=== PATIENT | male | born 1955 | race Caucasian/White ===

== ENCOUNTER 2020-10-02 06:18 | Outpatient (REF) | payer MEDICARE, SELFPAY ==
[2020-10-02 12:03] LABS: Alanine Aminotransferase 17 U/L (0-40); Albumin Level 4.3 g/dL (3.5-5.0); Alkaline Phosphatase 55 U/L (39-117); Anion Gap 14 (12-20); Aspartate Amino Transferase 15 U/L (5-37); Bilirubin Total 0.7 mg/dL (0.0-1.0); Blood Urea Nitrogen 19 mg/dL (9-16); Calcium 9.5 mg/dL (8.4-10.2); Carbon Dioxide 29 mmol/L (22-29); Chloride 103 mmol/L (96-108); Cholesterol 222 mg/dL; Estimated Glomerular Filt Rate > 60; Glucose Fasting 105 mg/dL (60-99); HDL Cholesterol 50 mg/dL; LDL Cholesterol Calculated 141 mg/dl; Potassium 4.9 mmol/l (3.3-5.1); Sodium 141 mmol/L (135-145); Total Protein 7.2 g/dL (6.5-8.0); Triglycerides 159 mg/dL
[2020-10-02 12:11] LABS: Prostate Specific Antigen Scr 1.11 ng/mL (<0.05-4.0); TSH reflex Free T4 4.38 mIU/mL (0.32-4.0)
[2020-10-02 12:46] LABS: Free T4 (Free Thyroxine) 1.07 ng/dL (0.71-1.85)
== END 2020-10-02 06:19 | disposition home or self-care (01) ==
LOC: HO.HMGCLDS 06:18
PROVIDERS: PCP Nurse Practitioner Family; Visit Provider Nurse Practitioner Family
DX: I10 Essential (primary) hypertension (principal); Z12.5 Encounter for screening for malignant neoplasm of prostate; R79.89 Other specified abnormal findings of blood chemistry
CPT/HCPCS: 80053; 80061; 84153; 84439; 84443

== ENCOUNTER 2023-03-21 07:52 | Outpatient (REF) | payer MEDICARE, SELFPAY ==
[2023-03-21 11:25] LABS: MANUAL DIFF FLAG NO
[2023-03-21 11:38] LABS: Appearance Urine Turbid; Color Urine Yellow; Glucose Urine UA Negative (Negative); Leukocyte Esterase Urine Negative (Negative); Nitrite Urine Negative (Negative); Urine Blood Negative (Negative); Urine Ketones Negative (Negative); Urine Protein Negative (Neg-Trace)
[2023-03-21 11:57] LABS: Basophils Absolute Auto 0.1 X10*3/uL (0.0-0.2); Basophils Percent Auto 0.8 % (0-2); Eosinophils Absolute Auto 0.2 X10*3/uL (0.0-0.4); Eosinophils Percent Auto 3.2 % (0-4); Hematocrit 41.6 % (42.0-52.0); Hemoglobin 13.9 g/dl (14.0-18.0); Imm Gran Abs Auto 0.03 X10*3/uL (0.00-0.03); Imm Gran Pct Auto 0.5 % (0.0-0.4); Lymphocytes Absolute Auto 1.9 X10*3/uL (1.2-4.9); Lymphocytes Percent Auto 30.7 % (20-40); Mean Corpuscular HGB Conc 33.4 g/dl (31.0-36.0); Mean Corpuscular Hemoglobin 33.7 pg (27.0-33.0); Mean Platelet Volume 9.2 fL (9.4-12.4); Monocytes Absolute Auto 0.7 X10*3/uL (0.1-1.2); Monocytes Percent Auto 11.7 % (2-11); Neutrophils Absolute Auto 3.4 x10*3/uL (2.0-8.3); Neutrophils Percent Auto 53.1 % (45-73); Platelet Count 282 X10*3/uL (160-400); Red Blood Count 4.12 X10*6/uL (4.60-5.80); Red Cell Distribution Width 12.6 % (11.0-16.0); White Blood Count 6.3 X10*3/uL (4.8-10.8)
[2023-03-21 12:30] LABS: Alanine Aminotransferase 14 U/L (0-40); Albumin Level 4.1 g/dL (3.5-5.0); Alkaline Phosphatase 57 U/L (39-117); Anion Gap 10 (12-20); Aspartate Amino Transferase 15 U/L (5-37); Bilirubin Total 0.7 mg/dL (0.0-1.0); Blood Urea Nitrogen 22 mg/dL (9-16); Calcium 9.4 mg/dL (8.4-10.2); Carbon Dioxide 29 mmol/L (22-29); Chloride 105 mmol/L (96-108); Cholesterol 206 mg/dL; Estimated Glomerular Filt Rate > 60; Glucose Fasting 104 mg/dL (60-99); HDL Cholesterol 54 mg/dL; LDL Cholesterol Calculated 127 mg/dl; Potassium 5.1 mmol/L (3.3-5.1); Prostate Specific Antigen Scr 1.35 ng/mL (<0.05-4.0); Sodium 139 mmol/L (135-145); TSH reflex Free T4 7.47 uIU/mL (0.32-4.0); Total Protein 6.7 g/dL (6.5-8.0); Triglycerides 127 mg/dL
[2023-03-21 13:20] LABS: Free T4 (Free Thyroxine) 0.96 ng/dL (0.71-1.85)
== END 2023-03-21 07:53 | disposition home or self-care (01) ==
LOC: HO.HMGCLDS 07:52
PROVIDERS: PCP Nurse Practitioner Family; Visit Provider Nurse Practitioner Family
DX: Z12.5 Encounter for screening for malignant neoplasm of prostate (principal); I10 Essential (primary) hypertension
CPT/HCPCS: 36415; 80053; 80061; 81003; 84153; 84439; 84443; 85025

== ENCOUNTER 2023-06-19 08:15 | Outpatient (REF) | payer MEDICARE, SELFPAY ==
[2023-06-19 11:08] LABS: MANUAL DIFF FLAG NO
[2023-06-19 11:36] LABS: Basophils Absolute Auto 0.1 X10*3/uL (0.0-0.2); Basophils Percent Auto 0.7 % (0-2); Eosinophils Absolute Auto 0.2 X10*3/uL (0.0-0.4); Eosinophils Percent Auto 2.2 % (0-4); Hematocrit 43.2 % (42.0-52.0); Hemoglobin 14.6 g/dl (14.0-18.0); Imm Gran Abs Auto 0.02 X10*3/uL (0.00-0.03); Imm Gran Pct Auto 0.3 % (0.0-0.4); Lymphocytes Percent Auto 29.2 % (20-40); Mean Corpuscular HGB Conc 33.8 g/dl (31.0-36.0); Mean Corpuscular Volume 100.5 fL (80.0-98.0); Mean Platelet Volume 9.3 fL (9.4-12.4); Monocytes Absolute Auto 0.8 X10*3/uL (0.1-1.2); Monocytes Percent Auto 11.2 % (2-11); Neutrophils Absolute Auto 3.8 x10*3/uL (2.0-8.3); Neutrophils Percent Auto 56.4 % (45-73); Platelet Count 287 X10*3/uL (160-400); White Blood Count 6.7 X10*3/uL (4.8-10.8)
[2023-06-19 12:08] LABS: Iron 117 mcg/dL (45-160); Percent Iron Saturation 35 % (15-50); Total Iron Binding Capacity 333 mcg/dL (228-428); Unsaturated Iron Binding 216 ug/dL
[2023-06-19 12:09] LABS: Ferritin 141 ng/mL (20-250); TSH reflex Free T4 12.12 uIU/mL (0.32-4.0)
[2023-06-19 12:21] LABS: Folate 12.8 ng/mL (> or = 4.0); Vitamin B12 332 pg/mL (200-900)
[2023-06-19 12:53] LABS: Free T4 (Free Thyroxine) 0.81 ng/dL (0.71-1.85)
== END 2023-06-19 08:16 | disposition home or self-care (01) ==
LOC: HO.HMGCLDS 08:15
PROVIDERS: PCP Nurse Practitioner Family; Visit Provider Nurse Practitioner Family
DX: D64.9 Anemia, unspecified (principal); R79.89 Other specified abnormal findings of blood chemistry
CPT/HCPCS: 36415; 82607; 82728; 82746; 83540; 84439; 84443; 85025

== ENCOUNTER 2023-06-26 14:56 | Outpatient (AMB) | payer MEDICARE, SELFPAY ==
--- NOTE | 2023-06-26 15:04 | MHC.PC.OV ---
Vital Signs 06/26/23 15:06 Height 6 ft Weight 236 lb BMI 32.0 BP 130/84 Blood Pressure Location Lt brachial Position Sitting Pulse 59 Pulse Source Pulse Oximeter Pulse Oximetry (%) 98 Oxygen Delivery Method Room Air Intake Visit Reasons: Annual PE/3 Month med review Allergies No Known Allergies Allergy (Verified 06/26/23 15:09) Medication List - Last Reconciled 06/26/23 by JANELLE Ashley aspirin (Adult Low Dose Aspirin) 81 mg PO DAILY flu vac qv 2019(18yr up)rc(PF) mL IM levothyroxine 150 mcg PO DAILY 30 days lisinopril 40 mg PO DAILY magnesium oxide 400 mg PO DAILY metoprolol tartrate 12.5 mg (1/2 x 25 mg) PO BID 90 days Tobacco use date assessed: 06/26/23 Fall risk assessment: No Falls in past year Last assessed Fall Risk: 06/26/23 Dental Screening Dental Screen Date: 06/26/23 Did you have a dental visit in the last 12 months?: Yes Did you have a dental problem in the last 6 months where you did not have access to dental care?: No Was dental information given to patient?: Patient has dentist HPI Annual PE/3 Month med review HPI Details Pt is here for a PE. Will order labs. Colon screen is up to date. PSA is up to date. tsh elevated, on 137mcg, taking daily, will increase to 150mcg, repeat tsh in 2 months. HTN: Blood pressure is stable, managed with lisinopril 40mg and metoprolol 12.5mg. Denies chest pain, shortness of breath, headache, dizziness, and blurred vision. Dyslipidemia: Will order labs. [facility] Medical History Arthritis of left knee Dyslipidemia First degree AV block HTN (hypertension) Hypothyroid Vitamin B deficiency Surgical History No pertinent past surgical history Family History Father AAA (abdominal aortic aneurysm) Mother Arthritis Social History Housing: Condominium Patient Tobacco Use Status: Former Tobacco user Years Smoked: 15 years ago e-Cigarette/Vaping Use: Never Used Second Hand Smoke Exposure: No service: No Current occupational status: retired Cognitive needs: No Hearing needs: No Vision needs: No Questionnaire Thrive Questionnaire Date Thrive assessed: 10/11/21 MARIFER-7 AMB Questionnaire MARIFER-7 Date MARIFER - 7 assessed: 03/13/22 Source: Developed by Drs. Lake Childress, Carole Andre, Clinton Galvan and colleagues, with an educational vee from [employer]. Review of Systems Const Denies chills and Denies fever(s) Eyes Denies blurry vision ENT Denies vertigo, Denies dizziness and Denies sore throat Card Denies chest pain at rest, Denies chest pain with activity, Denies diaphoresis, Denies dyspnea and Denies dyspnea on exertion Resp Denies cough, Denies dyspnea, Denies dyspnea on exertion and Denies wheezing GI Denies abdominal pain, Denies melena, Denies hematochezia, Denies constipation, Denies diarrhea and Denies loose stools Denies hematuria Musc Denies numbness and Denies tingling Skin/Breast Denies lesions Neuro Denies vertigo, Denies dizziness, Denies numbness and Denies tingling Psych Denies anxiety, Denies depression, Denies homicidal ideation, Denies suicidal ideation and Denies other (substance abuse) Aller/Immun Denies wheezing Physical exam (Primary Care) Vital Signs: Last Vital Signs Pulse 59 06/26/23 15:06 BP 130/84 06/26/23 15:06 Pulse Ox 98 06/26/23 15:06 Oxygen Delivery Method Room Air 06/26/23 15:06 BMI result Body Mass Index 32.0 Tobacco/Smoking Status: Tobacco use Status Tobacco use date assessed 06/26/23 06/26/23 15:12 Patient Tobacco Use Status Former Tobacco user 06/26/23 15:04 e-Cigarette/Vaping Use Never Used 06/26/23 15:04 Thrive Assessment: Date of Thrive Assessment Date Thrive assessed 10/11/21 06/26/23 15:04 Const General: cooperative Nutritional Appearance: well nourished Orientation/consciousness: patient oriented x3 HENMT Head: Yes normal to inspection, Yes normocephalic and Yes atraumatic Ears: TM's normal bilaterally Eyes General: appearance normal, both eyes and all related structures Alignment and Position: alignment normal and position normal Neck Neck: Yes normal visual inspection and Yes no lymphadenopathy Thyroid: Thyroid normal Resp Effort & Inspection: normal respiratory effort Auscultation: clear to auscultation bilaterally Cardio Rate: regular rate Rhythm: regular rhythm Heart sounds: S1 normal heart sound present, S2 normal heart sound present and no murmurs GI Palpation (GI): Soft to palpation and nontender Auscultation: normal bowel sounds Other: refused TJ Male General Exam: Yes normal external exam Penis: normal penis Scrotum: scrotum normal, testes descended bilaterally and no inguinal hernias Testes: no testicular mass Skin Rashes: no rashes Neuro General: patient oriented x3, moves all extremities, no focal motor deficits and deep tendon reflexes 2+ bilaterally Romberg Test: Negative Extrem Right lower extremity: edema (trace) Left lower extremity: edema (trace) Psych Appearance: grossly normal Mental Status: mental status grossly normal Speech and movement: Normal speech and movement present Affect: normal affect Attitude: cooperative Thought process: Normal thought process present Thought content: Normal thought content present Insight: Good insight present (Psych) Judgement: Good judgement present (Psych) Assessment and Plan Assessment & Plan (1) Elevated TSH: Code(s): R79.89 - Other specified abnormal findings of blood chemistry Plan: Repeat labs ordered, levothyroxine increased to 150mcg (2) HTN (hypertension): Code(s): I10 - Essential (primary) hypertension Plan: Labs ordered (3) Dyslipidemia: Code(s): E78.5 - Hyperlipidemia, unspecified Plan: Labs ordered Plan The patient agreed to the use of a medical administrator for this encounter. Scribed for JANELLE Miles by Malinda Avendaño medical administrator, on 06/26/2023 at 15:15 EST. Orders: Orders Comprehensive Met. Panel Today R79.89 - Other specified abnormal findings of blood chemistry TSH reflex Free T4 2 Months R79.89 - Other specified abnormal findings of blood chemistry Lipid Panel 2 Months E78.5 - Hyperlipidemia, unspecified, I10 - Essential (primary) hypertension, R79.89 - Other specified abnormal findings of blood chemistry Complete Blood Count Auto Diff 2 Months E78.5 - Hyperlipidemia, unspecified, I10 - Essential (primary) hypertension, R79.89 - Other specified abnormal findings of blood chemistry UA CC w/rflx Micro + Cult 2 Months E78.5 - Hyperlipidemia, unspecified, I10 - Essential (primary) hypertension, R79.89 - Other specified abnormal findings of blood chemistry Comprehensive Pablo. Panel Fast 2 Months E78.5 - Hyperlipidemia, unspecified, I10 - Essential (primary) hypertension, R79.89 - Other specified abnormal findings of blood chemistry Medications: Changed From levothyroxine 137 mcg PO DAILY 30 days 30 tabs 2RF To levothyroxine 150 mcg PO DAILY 30 tabs 2RF 30 days Refilled lisinopril 40 mg PO DAILY 90 tabs 1RF I10 - Essential (primary) hypertension metoprolol tartrate 12.5 mg (1/2 x 25 mg) PO BID 90 tabs 1RF 90 days Coding Level of Care Code Est Pt Prev Care >65y(15951) Diagnoses Elevated TSH R79.89 HTN (hypertension) I10 Dyslipidemia E78.5
[2023-06-26 15:06] VITALS: BP 130/84; PULSE 59; O2SAT 98; BMI 32.0
== END 2023-06-26 16:17 | disposition home or self-care (01) ==
PROVIDERS: Visit Provider Nurse Practitioner Family
DX: Z00.00 Encounter for general adult medical examination without abnormal findings (principal); I10 Essential (primary) hypertension; R79.89 Other specified abnormal findings of blood chemistry; E78.5 Hyperlipidemia, unspecified
CPT/HCPCS: 99397

== ENCOUNTER 2023-10-09 07:00 | Outpatient (REF) | payer MEDICARE, SELFPAY ==
[2023-10-09 11:20] LABS: MANUAL DIFF FLAG NO
[2023-10-09 11:30] LABS: Appearance Urine Clear; Color Urine Yellow; Glucose Urine UA Negative (Negative); Leukocyte Esterase Urine Negative (Negative); Nitrite Urine Negative (Negative); Specific Gravity - Urine 1.025 (1.005-1.025); UMIC TRIGGER UACC YES; Urine Blood Trace (Negative); Urine Ketones Negative (Negative); Urine Protein Negative (Neg-Trace)
[2023-10-09 11:34] LABS: Bacteria Urine None Seen (None Seen); Hyaline Casts Urine 0-2 /LPF (0-2); Squamous Epithelial Cell Urine 0-2 /HPF (0-2); WBC Urine 0-5 /HPF (0-5)
[2023-10-09 11:42] LABS: Basophils Absolute Auto 0.1 X10*3/uL (0.0-0.2); Eosinophils Absolute Auto 0.2 X10*3/uL (0.0-0.4); Eosinophils Percent Auto 3.3 % (0-4); Hematocrit 42.9 % (42.0-52.0); Hemoglobin 14.5 g/dl (14.0-18.0); Imm Gran Abs Auto 0.02 X10*3/uL (0.00-0.03); Imm Gran Pct Auto 0.3 % (0.0-0.4); Lymphocytes Absolute Auto 1.5 X10*3/uL (1.2-4.9); Lymphocytes Percent Auto 24.2 % (20-40); Mean Corpuscular HGB Conc 33.8 g/dl (31.0-36.0); Mean Corpuscular Hemoglobin 33.8 pg (27.0-33.0); Mean Platelet Volume 9.4 fL (9.4-12.4); Monocytes Absolute Auto 0.6 X10*3/uL (0.1-1.2); Monocytes Percent Auto 10.2 % (2-11); Neutrophils Absolute Auto 3.8 x10*3/uL (2.0-8.3); Platelet Count 295 X10*3/uL (160-400); Red Blood Count 4.29 X10*6/uL (4.60-5.80); Red Cell Distribution Width 12.6 % (11.0-16.0); White Blood Count 6.3 X10*3/uL (4.8-10.8)
[2023-10-09 12:03] LABS: Alanine Aminotransferase 19 U/L (0-40); Albumin Level 4.3 g/dL (3.5-5.0); Alkaline Phosphatase 53 U/L (39-117); Anion Gap 13 (12-20); Aspartate Amino Transferase 19 U/L (5-37); Bilirubin Total 0.8 mg/dL (0.0-1.0); Blood Urea Nitrogen 22 mg/dL (9-16); Calcium 9.5 mg/dL (8.4-10.2); Carbon Dioxide 28 mmol/L (22-29); Chloride 103 mmol/L (96-108); Cholesterol 222 mg/dL (<200); Estimated Glomerular Filt Rate > 60; Glucose Fasting 110 mg/dL (60-99); Glucose Random 110 mg/dL (60-115); HDL Cholesterol 52 mg/dL (>40); LDL Cholesterol Calculated 123 mg/dL (<100); Potassium 4.6 mmol/L (3.3-5.1); Sodium 139 mmol/L (135-145); Total Protein 7.4 g/dL (6.5-8.0); Triglycerides 235 mg/dL (<150)
[2023-10-09 12:07] LABS: TSH reflex Free T4 5.87 uIU/mL (0.32-4.0)
[2023-10-09 12:50] LABS: Free T4 (Free Thyroxine) 1.05 ng/dL (0.71-1.85)
== END 2023-10-09 07:01 | disposition home or self-care (01) ==
LOC: HO.HMGCLDS 07:00
PROVIDERS: PCP Nurse Practitioner Family; Visit Provider Nurse Practitioner Family
DX: R79.89 Other specified abnormal findings of blood chemistry (principal); I10 Essential (primary) hypertension; E78.5 Hyperlipidemia, unspecified
CPT/HCPCS: 36415; 80053; 80061; 81001; 84439; 84443; 85025

== ENCOUNTER 2023-11-28 11:05 | Outpatient (REF) | payer MEDICARE, SELFPAY ==
[2023-11-28 16:41] LABS: Urine Cytology See Pathology rpt
== END 2023-11-28 11:06 | disposition home or self-care (01) ==
LOC: HO.LAB 11:05
PROVIDERS: PCP Nurse Practitioner Family; Visit Provider Urology
DX: R31.29 Other microscopic hematuria (principal); Z87.891 Personal history of nicotine dependence
CPT/HCPCS: 81003; 88112; 99202

== ENCOUNTER 2023-11-28 11:05 | Outpatient (AMB) | payer MEDICARE, SELFPAY ==
--- NOTE | 2023-11-28 11:14 | A.OFFVIS_ITS ---
Intake Intake Visit Reasons: Microscopic hematuria Intake Note: NEW Patient presents today to established treatment for Microscopic Hematuria: Meds- None Allergies to Antibiotic- No Known Allergies Blood Thinner- Aspirin Chip Crusher Operator Required: No Accompanied by: Self / Same As Patient Allergies No Known Allergies Allergy (Verified 01/15/24 08:56) HPI HPI Comments History of Present Illness Details Eliseo is a 68 y/o male who is here for evaluation for hematuria. I have discussed reasons for blood in the urine may include but are not limited to kidney stones, cancer in the urinary tract, kidney stone disease or inflammatory conditions of the urinary tract BPH. I have discussed workup to include evaluation of the upper tracts and consideration for cystoscopy evaluation. UA- leukocytes negative, microscopic blood present Plan: Urine cytology, CT urogram office cystoscopy This note is constructed in part using voice recognition software. While every effort has been made to ensure accuracy electrophonic engineer errors may have been included. [facility] Medical History Arthritis of left knee HTN (hypertension) First degree AV block Vitamin B deficiency Dyslipidemia Hypothyroid Surgical History No pertinent past surgical history Family History Father AAA (abdominal aortic aneurysm) Mother Arthritis Social History Housing: Condominium Patient Tobacco Use Status: Former Tobacco user Years Smoked: 15 years ago e-Cigarette/Vaping Use: Never Used Second Hand Smoke Exposure: No service: No Current occupational status: retired Cognitive needs: No Hearing needs: No Vision needs: No Review of Systems Const All systems reviewed & are unremarkable except as noted in HPI and below Reports no additional complaints Eyes Reports no additional complaints ENT Reports no additional complaints Card Denies dyspnea Resp Denies cough and Denies dyspnea GI Reports no additional complaints Musc Reports no additional complaints Skin/Breast Denies rash and Denies unusual bruising Neuro Reports no additional complaints Psych Reports no additional complaints Endo Reports no additional complaints [place]/Lymph Reports no additional complaints Aller/Immun Reports no additional complaints Physical Exam Const General: healthy appearing, no acute distress and well developed Orientation/consciousness: patient oriented x3 HEENT Head: Yes normocephalic and Yes atraumatic Eyes Conjunctivae: conjunctivae normal Neck Neck: Yes normal visual inspection Chest Chest palpation & inspection: normal inspection of the chest Resp Effort & Inspection: normal respiratory effort Cardio Rate: regular rate GI Inspection: Yes normal to inspection Palpation (GI): Soft to palpation Other: Prostate Exam: Penis: normal penis Scrotum: scrotum normal Skin General skin exam: no rashes or lesions noted Neuro General: patient oriented x3 Extrem General: No pedal edema Psych Appearance: grossly normal Affect: normal affect Results AMB Urinalysis, Automated UA Leukoctes 0 Joyce/uL Last Edit by ABIMAEL Bryant on 11/28/23 11:33 UA Nitrite Negative Last Edit by ABIMAEL Bryant on 11/28/23 11:33 UA Urobilinogen 0.2 mg/dL Last Edit by ABIMAEL Bryant on 11/28/23 11:3 3 UA Protein 0 mg/dL Last Edit by ABIMAEL Bryant on 11/28/23 11:33 UA pH 5.5 Last Edit by ABIMAEL Bryant on 11/28/23 11:33 UA Blood 80 Randy/uL Last Edit by ABIMAEL Bryant on 11/28/23 11:33 2+ Jose Lowery 11/28/23 11:33 UA Specific Stark 1.030 Last Edit by ABIMAEL Bryant on 11/28/23 11: 33 UA Ketone Negative Last Edit by ABIMAEL Bryant on 11/28/23 11:33 UA Bilirubin 0 mg/dL Last Edit by ABIMAEL Bryant on 11/28/23 11:33 UA Glucose 0 mg/dL Last Edit by ABIMAEL Bryant on 11/28/23 11:33 Results Reviewed Results Reviewed: Laboratory Last Values Urine pH (Auto) 5.5 11/28/23 11:26 Specific Stark (Auto) 1.030 11/28/23 11:26 Urine Protein (Auto) 0 mg/dL 11/28/23 11:26 Glucose (UA)(Auto) 0 mg/dL 11/28/23 11:26 Urine Ketones (Auto) Negative 11/28/23 11:26 Urine Blood (Auto) 80 Randy/uL 11/28/23 11:26 Urine Nitrite (Auto) Negative 11/28/23 11:26 Urine Bilirubin (Auto) 0 mg/dL 11/28/23 11:26 Urine Urobilinogen (Auto) 0.2 mg/dL 11/28/23 11:26 Leukocyte Esterase (Auto) 0 Joyce/uL 11/28/23 11:26 Assessment & Plan Assessment & Plan (1) Hematuria: Code(s): R31.9 - Hematuria, unspecified (2) History of nicotine dependence: Code(s): Z87.891 - Personal history of nicotine dependence Plan Urine cytology. CT urogram. Follow-up office cystoscopy Orders: Orders AMB Urinalysis Automated 11/28/23 Z13.9 - Encounter for screening, unspecified Urine Cytology 11/28/23 R31.29 - Other microscopic hematuria CT abdomen pelvis wo IV con 11/28/23 R31.9 - Hematuria, unspecified, Z87.891 - Personal history of nicotine dependence Coding Level of Care Code New Pt Level 4 (59377) Diagnoses Hematuria R31.9 History of nicotine dependence Z87.891
== END 2023-11-28 11:45 | disposition home or self-care (01) ==
PROVIDERS: PCP Nurse Practitioner Family; Visit Provider Urology
DX: R31.9 Hematuria, unspecified (principal); Z87.891 Personal history of nicotine dependence
CPT/HCPCS: 99204

== ENCOUNTER 2023-12-23 06:20 | Outpatient (REF) | payer MEDICARE, SELFPAY ==
[2023-12-23 11:18] LABS: MANUAL DIFF FLAG NO
[2023-12-23 11:35] LABS: Appearance Urine Turbid; Color Urine Yellow; Glucose Urine UA Negative (Negative); Leukocyte Esterase Urine Negative (Negative); Nitrite Urine Negative (Negative); Specific Gravity - Urine 1.025 (1.005-1.025); UMIC TRIGGER UACC YES; Urine Blood Small (1+) (Negative); Urine Ketones Negative (Negative); Urine Protein Negative (Neg-Trace)
[2023-12-23 11:41] LABS: Basophils Absolute Auto 0.1 X10*3/uL (0.0-0.2); Basophils Percent Auto 0.9 % (0-2); Eosinophils Absolute Auto 0.2 X10*3/uL (0.0-0.4); Eosinophils Percent Auto 2.7 % (0-4); Hemoglobin 14.8 g/dl (14.0-18.0); Imm Gran Abs Auto 0.02 X10*3/uL (0.00-0.03); Imm Gran Pct Auto 0.3 % (0.0-0.4); Lymphocytes Absolute Auto 1.8 X10*3/uL (1.2-4.9); Lymphocytes Percent Auto 25.7 % (20-40); Mean Corpuscular HGB Conc 33.6 g/dl (31.0-36.0); Mean Corpuscular Hemoglobin 33.6 pg (27.0-33.0); Mean Corpuscular Volume 99.8 fL (80.0-98.0); Mean Platelet Volume 9.4 fL (9.4-12.4); Monocytes Absolute Auto 0.7 X10*3/uL (0.1-1.2); Monocytes Percent Auto 10.2 % (2-11); Neutrophils Absolute Auto 4.2 x10*3/uL (2.0-8.3); Neutrophils Percent Auto 60.2 % (45-73); Platelet Count 278 X10*3/uL (160-400); Red Blood Count 4.41 X10*6/uL (4.60-5.80); Red Cell Distribution Width 12.1 % (11.0-16.0)
[2023-12-23 11:59] LABS: Alanine Aminotransferase 24 U/L (0-40); Albumin Level 4.3 g/dL (3.5-5.0); Alkaline Phosphatase 62 U/L (39-117); Anion Gap 15 (12-20); Aspartate Amino Transferase 20 U/L (5-37); Bilirubin Total 0.7 mg/dL (0.0-1.0); Blood Urea Nitrogen 15 mg/dL (9-16); Calcium 9.7 mg/dL (8.4-10.2); Carbon Dioxide 27 mmol/L (22-29); Chloride 104 mmol/L (96-108); Cholesterol 140 mg/dL (<200); Estimated Glomerular Filt Rate > 60; Glucose Fasting 106 mg/dL (60-99); HDL Cholesterol 54 mg/dL (>40); Iron 117 mcg/dL (45-160); LDL Cholesterol Calculated 47 mg/dL (<100); Percent Iron Saturation 37 % (15-50); Potassium 4.6 mmol/L (3.3-5.1); Sodium 141 mmol/L (135-145); Total Iron Binding Capacity 319 mcg/dL (228-428); Total Protein 7.3 g/dL (6.5-8.0); Triglycerides 195 mg/dL (<150); Unsaturated Iron Binding 202 ug/dL
[2023-12-23 12:06] LABS: Ferritin 170 ng/mL (20-250); TSH reflex Free T4 4.19 uIU/mL (0.32-4.0)
[2023-12-23 12:16] LABS: Folate 12.1 ng/mL (> or = 4.0); Vitamin B12 376 pg/mL (200-900)
[2023-12-23 12:34] LABS: Bacteria Urine None Seen (None Seen); Hyaline Casts Urine 0-2 /LPF (0-2); RBC Urine 0-2 /HPF (0-2); Squamous Epithelial Cell Urine 0-2 /HPF (0-2); WBC Urine 0-5 /HPF (0-5)
[2023-12-23 13:04] LABS: Free T4 (Free Thyroxine) 1.12 ng/dL (0.71-1.85)
== END 2023-12-23 06:21 | disposition home or self-care (01) ==
LOC: HO.HMGCLDS 06:20
PROVIDERS: PCP Nurse Practitioner Family; Visit Provider Nurse Practitioner Family
DX: D64.9 Anemia, unspecified (principal); R79.89 Other specified abnormal findings of blood chemistry; E78.5 Hyperlipidemia, unspecified
CPT/HCPCS: 36415; 80053; 80061; 81001; 82607; 82728; 82746; 83540; 84439; 84443; 85025

== ENCOUNTER 2024-01-05 07:45 | Outpatient (AMB) | payer MEDICARE, SELFPAY ==
[2024-01-05 07:56] VITALS: BP 130/76; PULSE 60; TEMP 36.4; O2SAT 99; BMI 31.3
--- NOTE | 2024-01-05 07:56 | A.OFFPC_ITS ---
Vital Signs 01/05/24 07:56 Height 6 ft Weight 231 lb BMI 31.3 BP 130/76 Blood Pressure Location Lt brachial Position Sitting Pulse 60 Pulse Source Pulse Oximeter Temp 97.6 F Temp Source Temporal Artery Scan Pulse Oximetry (%) 99 Oxygen Delivery Method Room Air Intake Visit Reasons: 6 month fu Intake Note: pt is here today for 6 month FU Allergies No Known Allergies Allergy (Verified 01/05/24 09:48) Medication List - Last Reconciled 01/05/24 by JANELLE Ashley aspirin (Adult Low Dose Aspirin) 81 mg PO DAILY atorvastatin 20 mg PO BEDTIME flu vac qv 2019(18yr up)rc(PF) mL IM levothyroxine 175 mcg PO DAILY 90 days lisinopril 40 mg PO DAILY magnesium oxide 400 mg PO DAILY metoprolol tartrate 12.5 mg (1/2 x 25 mg) PO BID 90 days Tobacco use date assessed: 01/05/24 Fall risk assessment: No Falls in past year Dental Screening Dental Screen Date: 01/05/24 Did you have a dental visit in the last 12 months?: No Did you have a dental problem in the last 6 months where you did not have access to dental care?: Yes Was dental information given to patient?: Patient has dentist HPI 6 month fu HPI Details HTN: Blood pressure is stable, managed with lisinopril 40mg and metoprolol 12.5mg bid. Denies chest pain, shortness of breath, headache, dizziness, and blurred vision. pt reports cutting out fried foods, dairy, reports 'feeling better , it shows with his choles numbers as well. [facility] Medical History Arthritis of left knee HTN (hypertension) First degree AV block Vitamin B deficiency Dyslipidemia Hypothyroid Surgical History No pertinent past surgical history Family History Father AAA (abdominal aortic aneurysm) Mother Arthritis [facility] Patient Tobacco Use Status: Former Tobacco user Years Smoked: 15 years ago e-Cigarette/Vaping Use: Never Used Second Hand Smoke Exposure: No service: No Current occupational status: retired Cognitive needs: No Hearing needs: No Vision needs: No Questionnaire PHQ-9 Over the last 2 weeks, how often have you been bothered by any of the following problems? 1. Little interest or pleasure in doing things: not at all 2. Feeling down, depressed, or hopeless: not at all 3. Trouble falling or staying asleep, or sleeping too much: not at all 4. Feeling tired or having little energy: not at all 5. Poor appetite or overeating: not at all 6. Feeling bad about yourself - or that you are a failure or have let yourself or your family down: not at all 7. Trouble concentrating on things, such as reading the newspaper or watching television: not at all 8. Moving or speaking so slowly that other people could have noticed. Or the opposite - being so fidgety or restless that you have been moving around a lot more than usual: not at all 9. Thoughts that you would be better off or of hurting yourself in some way: not at all Total score: 0 Depression Screening Interpretation: Negative Depression Screening Done: Yes Source: Developed by Drs. Lake Childress, Carole Andre, Clinton Galvan and colleagues, with an educational vee from [employer]. Thrive Questionnaire Date Thrive assessed: 01/05/24 I am a: Patient What is your living situation today?: I have a steady place to live Within the past 12 months, did the food you bought not last and you didn't have the money to get more?: Never true Within the past 12 months, did you worry whether your food would run out before you got money to buy more?: Never true Do you have trouble paying for medicines?: No Do you have trouble getting transportation to medical appointments?: No Do you have trouble paying your heating and electricity bill?: No Do you have trouble taking care of your child, family member or friend?: No Do you have trouble with day-to-day activities such as bathing, preparing meals, shopping, managing finances, etc.?: No Are you currently unemployed and looking for a job?: No Are you interested in more education?: No Please select the resources that you would like help with: None THRIVE Score: 0 MARIFER-7 AMB Questionnaire MARIFER-7 Date MARIFER - 7 assessed: 01/05/24 Feeling nervous, anxious, or on edge: 2 = More than half the days Not being able to stop or control worryin = Several days Worrying too much about different things: 1 = Several days Trouble relaxin = Several days Being so restless that it is hard to sit still: 1 = Several days Becoming easily annoyed or irritable: 1 = Several days Feeling afraid as if something awful might happen: 0 = Not at all Total MARIFER-7 score (0-4 normal; 5-9 mild; 10-14 moderate; 15-21 severe): 7 Source: Developed by Drs. Lake Childress, Carole Andre, Clinton Galvan and colleagues, with an educational vee from [employer]. Review of Systems Const Reports as per HPI Physical exam (Primary Care) Vital Signs: Last Vital Signs Temp 97.6 F 01/05/24 07:56 Pulse 60 01/05/24 07:56 BP 130/76 01/05/24 07:56 Pulse Ox 99 01/05/24 07:56 Oxygen Delivery Method Room Air 01/05/24 07:56 BMI result Body Mass Index 31.3 Tobacco/Smoking Status: Tobacco use Status Tobacco use date assessed 01/05/24 01/05/24 08:27 Patient Tobacco Use Status Former Tobacco user 01/05/24 07:57 e-Cigarette/Vaping Use Never Used 01/05/24 07:57 PHQ-9: PHQ-9 Score PHQ-9: Total score 0 01/05/24 08:51 Depression Screening Interpretation: Negative Thrive Assessment: Date of Thrive Assessment Date Thrive assessed 01/05/24 01/05/24 07:57 Const General: cooperative Nutritional Appearance: obese Orientation/consciousness: patient oriented x3 Resp Effort & Inspection: normal respiratory effort Auscultation: clear to auscultation bilaterally Cardio Rate: regular rate Rhythm: regular rhythm Heart sounds: S1 normal heart sound present and S2 normal heart sound present Neuro General: patient oriented x3 Extrem Right lower extremity: no edema Left lower extremity: no edema Psych Appearance: grossly normal Mental Status: mental status grossly normal Speech and movement: Normal speech and movement present Affect: normal affect Attitude: cooperative Thought process: Normal thought process present Thought content: Normal thought content present Insight: Good insight present (Psych) Judgement: Good judgement present (Psych) Assessment and Plan Assessment & Plan (1) HTN (hypertension): Code(s): I10 - Essential (primary) hypertension Plan: stable taking meds (2) Screening PSA (prostate specific antigen): Code(s): Z12.5 - Encounter for screening for malignant neoplasm of prostate Plan The patient agreed to the use of a medical coding manager for this encounter. Scribed for BING Miles-PHILLY by Malinda Avendaño medical coding manager, on 01/05/2024 at 08:30 EST. Orders: Orders Complete Blood Count Auto Diff Today I10 - Essential (primary) hypertension TSH reflex Free T4 Today I10 - Essential (primary) hypertension Lipid Panel Today I10 - Essential (primary) hypertension Comprehensive [place]. Panel Fast Today I10 - Essential (primary) hypertension Prostate Specific Antigen Scr Today Z12.5 - Encounter for screening for malignant neoplasm of prostate Coding Level of Care Code Est Pt Level 3 (66003) Diagnoses HTN (hypertension) I10 Screening PSA (prostate specific antigen) Z12.5
== END 2024-01-05 09:45 | disposition home or self-care (01) ==
PROVIDERS: PCP Nurse Practitioner Family; Visit Provider Nurse Practitioner Family
DX: I10 Essential (primary) hypertension (principal); Z12.5 Encounter for screening for malignant neoplasm of prostate
CPT/HCPCS: 99213

== ENCOUNTER 2024-01-09 07:49 | Outpatient (REF) | payer MEDICARE, SELFPAY ==
--- NOTE | ~2024-01-09 | CT_ITS ---
EXAMINATION: CT ABDOMEN AND PELVIS WITHOUT CONTRAST CLINICAL INFORMATION: Hematuria. COMPARISON: Abdominal aortic ultrasound 09/06/2015. TECHNIQUE: Multidetector volumetric imaging was performed from the superior aspect of the liver through the pubic symphysis. Sagittal and coronal reformatted images were obtained on the technologist's workstation. This CT examination was performed using dose optimization techniques as appropriate, variously including the following: *Automated exposure control *Adjustment of mA and/or kV according to patient size (this includes techniques or standardized protocols for targeted exams where dose is matched to indication/reason for exam; i.e. extremities or head) *Use of iterative reconstruction technique DLP: 632 mGy-cm FINDINGS: LUNG BASES: The visualized lung bases are unremarkable. LIVER, GALLBLADDER, AND BILIARY TREE: The liver is normal in size, shape, and attenuation. No focal hepatic lesion or biliary ductal dilatation is present. The gallbladder is unremarkable with no evidence of radiopaque gallstones, gallbladder wall thickening, or obvious pericholecystic inflammatory changes. PANCREAS: Unremarkable. SPLEEN: Unremarkable. ADRENAL GLANDS: Unremarkable. KIDNEYS AND URETERS: The kidneys are normal in size, shape, and attenuation. No hydronephrosis, hydroureter, or calculi seen. No perinephric stranding. BLADDER: Partially distended but unremarkable. GASTROINTESTINAL TRACT: The small and large bowel are unremarkable aside from colonic diverticulosis without diverticulitis. The appendix is unremarkable. ABDOMINAL WALL: Small bilateral inguinal hernias containing only fat. LYMPH NODES: No retroperitoneal lymphadenopathy. VASCULAR: Calcific atherosclerotic changes are present in the aorta and iliofemoral vessels. Mild focal dilatation of the infrarenal aorta at 2.4 cm but there is no evidence of an abdominal aortic aneurysm. PELVIC VISCERA: The prostate and seminal vesicles are unremarkable. OSSEOUS STRUCTURES: Marked degenerative changes are seen at L4-L5 and L5-S1. No bony destructive lesions. CT/CT abdomen pelvis wo IV con IMPRESSION: 1. A cause for the patient's hematuria has not been found. 2. Incidental note made of colonic diverticulosis without diverticulitis, small bilateral inguinal hernias containing only fat and degenerative changes in the spine. Fleischner guidelines were followed.
== END 2024-01-09 07:50 | disposition home or self-care (01) ==
LOC: HO.CT 07:49
PROVIDERS: PCP Nurse Practitioner Family; Visit Provider Urology
DX: R31.9 Hematuria, unspecified (principal); Z87.891 Personal history of nicotine dependence
CPT/HCPCS: 74176

== ENCOUNTER 2024-01-15 08:34 | Outpatient (AMB) | payer MEDICARE, SELFPAY ==
--- NOTE | 2024-01-15 08:55 | A.OFFVIS_ITS ---
Intake Intake Visit Reasons: 6w/CT (booked on 01/08) Intake Note: Patient presents today for Microscopic Hematuria, CT Scan Results: Meds- None Allergies to Antibiotic- No Known Allergies Blood Thinner- Aspirin Phlebotomy Director Required: No Accompanied by: Self / Same As Patient Allergies No Known Allergies Allergy (Verified 01/15/24 08:56) Medication List - Last Reconciled 01/15/24 by Micaela Paul MD aspirin (Adult Low Dose Aspirin) 81 mg PO DAILY atorvastatin 20 mg PO BEDTIME flu vac qv 2019(18yr up)rc(PF) mL IM levothyroxine 175 mcg PO DAILY 90 days lisinopril 40 mg PO DAILY magnesium oxide 400 mg PO DAILY metoprolol tartrate 12.5 mg (1/2 x 25 mg) PO BID 90 days HPI HPI Comments History of Present Illness Details Eliseo is here for office cystoscopy he is being evaluated due to microscopic hematuria. History of nicotine dependence. Urine cytology - negative for malignant cells CT urogram reviewed----urinary tract within normal limits; kidneys negative for masses or renal calculi, incidentally vascular abnormalities noted: Calcific atherosclerotic changes are present in the aorta and iliofemoral vessels. Mild focal dilatation of the infrarenal aorta at 2.4 cm but there is no evidence of an abdominal aortic aneurysm. diverticulosis noted and discussed and patient states has 10 year colonoscopy to be done next year. Cystoscopy findings: Mild to moderate bladder wall thickening, bilobar prostate enlargement, no suspicious bladder lesions. 30 minutes spent in review of records pe rtaining to this visit and including [id number] discussion with the patient and documentation of this visit, will refer to vascular for further evaluation of aortic dilation and calcifications noted Plan tamsulosin 0.4 mg daily, referral to vascular, follow-up in 3 months [facility] Medical History Arthritis of left knee HTN (hypertension) First degree AV block Vitamin B deficiency Dyslipidemia Hypothyroid Surgical History No pertinent past surgical history Family History Father AAA (abdominal aortic aneurysm) Mother Arthritis Social History [facility]: [facility] Patient Tobacco Use Status: Former Tobacco user Years Smoked: 15 years ago e-Cigarette/Vaping Use: Never Used Second Hand Smoke Exposure: No service: No Current occupational status: retired Cognitive needs: No Hearing needs: No Vision needs: No Review of Systems Const All systems reviewed & are unremarkable except as noted in HPI and below Reports no additional complaints Eyes Reports no additional complaints ENT Reports no additional complaints Card Denies dyspnea Resp Denies cough and Denies dyspnea GI Reports no additional complaints Musc Reports no additional complaints Skin/Breast Denies rash and Denies unusual bruising Neuro Reports no additional complaints Psych Reports no additional complaints Endo Reports no additional complaints Jay Jay/Lymph Reports no additional complaints Aller/Immun Reports no additional complaints Office Procedures Cystoscopy Consent Discussed risk and benefit or proposed procedure with the patient. Information consent for procedure given to the patient. Discussed technical aspects, risks, benefits and alternatives in full. Addressed all of the patient's questions and concerns regarding the procedure. The patient demonstrated knowledge and understanding. They wish to proceed with this procedure. Preparation The patient was prepped in the usual manner. A ethylene plant operator was present and in the room. Genitalia was prepped with betadine solution in a sterile manner. Lidocaine Jelly 2% was placed into the urethra and 16Fr flexible Olympus cystoscope was inserted into the meatus after adequate lubrication. Procedure Time out per protocol performed. Bladder Inspection Bladder Inspection: The bladder was inspected in its entirety with utilization retroflexion displaying: Tumor(s): No abnormal lesions visualized Trabeculation: [id number] Mucosal Erthema: Not applicable Orifices: normal shape and position Urethra: normal Cystoscopy findings: prostatic urethra-- bilobar enlargement, bulbous urethra WNL, no suspicious bladder lesions visualized [id number] DISPOSABLE SCOPE URO-G FLEXIBLE SCOPE Procedure code (CPT) selection complete Office Meds lidocaine HCl 2 % mucosal jelly in applicator Performing Provider: Micaela Paul MD Performing Location: [facility] [place], [place] [facility] Documented (not given) by: Micaela Paul MD on 01/15/24 10:24 Dose Route Admin Location Dispensed Lot Number Expiration Date ND Verification Manager 10 mL intra-urethral mL naproxen 500 mg tablet Performing Provider: Micaela Paul MD Performing Location: [facility] [place] [place] [facility] Documented (not given) by: Micaela Paul MD on 01/15/24 10:24 Dose Route Admin Location Dispensed Lot Number Expiration Date NDC Verification Manager 500 mg PO tab ciprofloxacin HCl 500 mg tablet Performing Provider: Micaela Paul MD Performing Location: [facility] [place] [place] [facility] Documented (not given) by: Micaela Paul MD on 01/15/24 10:24 Dose Route Admin Location Dispensed Lot Number Expiration Date NDC Verification Manager 500 mg PO tab Results AMB Urinalysis, Automated UA Leukoctes 0 Joyce/uL Last Edit by ABIMAEL Bryant on 01/15/24 09:30 UA Nitrite Negative Last Edit by ABIMAEL Bryant on 01/15/24 09:30 UA Urobilinogen 0.2 mg/dL Last Edit by ABIMAEL Bryant on 01/15/24 09:3 0 UA Protein 15 mg/dL Last Edit by ABIMAEL Bryant on 01/15/24 09:30 UA pH 6.0 Last Edit by ABIMAEL Bryant on 01/15/24 09:30 UA Blood 25 Randy/uL Last Edit by ABIMAEL Bryant on 01/15/24 09:30 1+ Jose Lowery 01/15/24 09:30 UA Specific [place] 1.015 Last Edit by ABIMAEL Bryant on 01/15/24 09: 30 UA Ketone Negative Last Edit by ABIMAEL Bryant on 01/15/24 09:30 UA Bilirubin 0 mg/dL Last Edit by ABIMAEL Bryant on 01/15/24 09:30 UA Glucose 0 mg/dL Last Edit by ABIMAEL Bryant on 01/15/24 09:30 Results Reviewed Results Reviewed: Laboratory Last Values Urine pH (Auto) 6.0 01/15/24 09:28 Specific [place] (Auto) 1.015 01/15/24 09:28 Urine Protein (Auto) 15 mg/dL 01/15/24 09:28 Glucose (UA)(Auto) 0 mg/dL 01/15/24 09:28 Urine Ketones (Auto) Negative 01/15/24 09:28 Urine Blood (Auto) 25 Randy/uL 01/15/24 09:28 Urine Nitrite (Auto) Negative 01/15/24 09:28 Urine Bilirubin (Auto) 0 mg/dL 01/15/24 09:28 Urine Urobilinogen (Auto) 0.2 mg/dL 01/15/24 09:28 Leukocyte Esterase (Auto) 0 Joyce/uL 01/15/24 09:28 Date of Service: 01/09/24 EXAMINATION: CT ABDOMEN AND PELVIS WITHOUT CONTRAST CLINICAL INFORMATION: Hematuria. COMPARISON: Abdominal aortic ultrasound 09/06/2015. TECHNIQUE: Multidetector volumetric imaging was performed from the superior aspect of the liver through the pubic symphysis. Sagittal and coronal reformatted images were obtained on the technologist's workstation. This CT examination was performed using dose optimization techniques as appropriate, variously including the following: *Automated exposure control *Adjustment of mA and/or kV according to patient size (this includes techniques or standardized protocols for targeted exams where dose is matched to indication/reason for exam; i.e. extremities or head) *Use of iterative reconstruction technique DLP: 632 mGy-cm FINDINGS: LUNG BASES: The visualized lung bases are unremarkable. LIVER, GALLBLADDER, AND BILIARY TREE: The liver is normal in size, shape, and attenuation. No focal hepatic lesion or biliary ductal dilatation is present. The gallbladder is unremarkable with no evidence of radiopaque gallstones, gallbladder wall thickening, or obvious pericholecystic inflammatory changes. PANCREAS: Unremarkable. SPLEEN: Unremarkable. ADRENAL GLANDS: Unremarkable. KIDNEYS AND URETERS: The kidneys are normal in size, shape, and attenuation. No hydronephrosis, hydroureter, or calculi seen. No perinephric stranding. BLADDER: Partially distended but unremarkable. GASTROINTESTINAL TRACT: The small and large bowel are unremarkable aside from colonic diverticulosis without diverticulitis. The appendix is unremarkable. ABDOMINAL WALL: Small bilateral inguinal hernias containing only fat. LYMPH NODES: No retroperitoneal lymphadenopathy. VASCULAR: Calcific atherosclerotic changes are present in the aorta and iliofemoral vessels. Mild focal dilatation of the infrarenal aorta at 2.4 cm but there is no evidence of an abdominal aortic aneurysm. PELVIC VISCERA: The prostate and seminal vesicles are unremarkable. OSSEOUS STRUCTURES: Marked degenerative changes are seen at L4-L5 and L5-S1. No bony destructive lesions. IMPRESSION: 1. A cause for the patient's hematuria has not been found. 2. Incidental note made of colonic diverticulosis without diverticulitis, small bilateral inguinal hernias containing only fat and degenerative changes in the spine. Assessment & Plan Assessment & Plan (1) Hematuria: Code(s): R31.9 - Hematuria, unspecified (2) History of nicotine dependence: Code(s): Z87.891 - Personal history of nicotine dependence (3) Aorta disorder: Code(s): I77.9 - Disorder of arteries and arterioles, unspecified (4) Microscopic hematuria: Code(s): R31.29 - Other microscopic hematuria Plan Plan tamsulosin 0.4 mg daily, referral to vascular, follow-up in 3 months Orders: Orders AMB Urinalysis Automated Today Z13.9 - Encounter for screening, unspecified AMB Cystoscopy Today R31.29 - Other microscopic hematuria, R31.9 - Hematuria, unspecified Referrals Vascular Surgery Referral I77.9 - Disorder of arteries and arterioles, unspecified Medications: New lidocaine HCl 2% 10 mL intra-urethral ONCE 20 mL 0RF R31.29 - Other microscopic hematuria, R31.9 - Hematuria, unspecified naproxen 500 mg PO ONCE 1 tab 0RF R31.29 - Other microscopic hematuria, R31.9 - Hematuria, unspecified ciprofloxacin HCl 500 mg PO ONCE 1 tab 0RF R31.29 - Other microscopic hematuria, R31.9 - Hematuria, unspecified tamsulosin (Flomax) 0.4 mg PO BEDTIME 30 caps 3RF Patient Instructions: The patient had an opportunity to ask questions regarding treatment plan. All questions were answered. Imaging, Laboratory studies and physical exam results were discussed and reviewed in detail. No major barriers to understanding were identified. The patient expressed understanding and agreement with the above treatment plan. The patient is aware they should contact our office by phone for worsening of their current condition or the appearance of new symptoms. Compliance is encouraged with any medications and followup testing that is ordered. It is a privilege to be allowed the opportunity to participate in the urologic care of your patient. If you have any questions or concerns regarding treatment for the above conditions please do not hesitate to contact me. The office te rigo contact is [phone]. This note is constructed in part using voice recognition software. While every effort has been made to ensure accuracy bill of lading clerk errors may have been included. Yours sincerely, Micaela Paul MD Coding Level of Care Code Est Pt Level 4 (23394) Diagnoses Hematuria R31.9 History of nicotine dependence Z87.891 Aorta disorder I77.9 Microscopic hematuria R31.29 CPT Codes Cystoscopy - CPT: 53892-Jynsmofgdi ([id number])
== END 2024-01-15 10:30 | disposition home or self-care (01) ==
PROVIDERS: PCP Nurse Practitioner Family; Visit Provider Urology
DX: R31.29 Other microscopic hematuria (principal); I77.9 Disorder of arteries and arterioles, unspecified; Z87.891 Personal history of nicotine dependence
CPT/HCPCS: 52000; 99213

== ENCOUNTER → 2024-01-15 08:34 | Outpatient (BNVA) | payer MEDICARE, SELFPAY | PROVIDERS: PCP Nurse Practitioner Family; Visit Provider Urology | DX: R31.29 Other microscopic hematuria (principal); I77.9 Disorder of arteries and arterioles, unspecified; Z87.891 Personal history of nicotine dependence | CPT/HCPCS: 52000; 81003; 99212 ==

== ENCOUNTER 2024-04-21 13:15 | Outpatient (AMB) | payer MEDICARE, SELFPAY ==
--- NOTE | 2024-04-21 13:26 | A.OFFVIS_ITS ---
Intake Visit Reasons: 3m follow up Intake Note: Patient presents today for a follow-up: Meds- Tamsulosin Allergies to Antibiotic- No Known Allergies Blood Thinner- Aspirin PVR, 153 mL Recreational Facilities Motel Manager Required: No Accompanied by: Self / Same As Patient Allergies No Known Allergies Allergy (Verified 01/15/24 08:56) Medication List - Last Reconciled 04/21/24 by Micaela Paul MD aspirin (Adult Low Dose Aspirin) 81 mg PO DAILY atorvastatin 20 mg PO BEDTIME levothyroxine 175 mcg PO DAILY 90 days lisinopril 40 mg PO DAILY magnesium oxide 400 mg PO DAILY metoprolol tartrate 12.5 mg (1/2 x 25 mg) PO BID 90 days tamsulosin (Flomax) 0.4 mg PO BEDTIME HPI Comments Details: 04/21/24--Eliseo is a 69-year-old male who has been evaluated due to microscopic hematuria and BPH. He is prescribed tamsulosin 0.4 mg daily. He states that he gets at about once at about 03:00am to urinate otherwise feels that he has a good flow. I will continue tamsulosin 0.4 mg daily. Urinalysis blood trace. Bladder scan PVR 153 mL. The patient was referred to [facility] vascular specialty and we received correspondence from the office that the aneurysm was small. The patient has a family history of aneurysms. A consult was sent for a referral to [facility] vascular the patient states he has not heard from them as yet. PSA 03/21/2023 1.35 ng. PSA screening. The patient has pending blood work ordered by his PCP. Review of chart: 01/15/24--Eliseo is here for office cystoscopy he is being evaluated due to microscopic hematuria. History of nicotine dependence. Urine cytology - negative for malignant cells CT urogram reviewed----urinary tract within normal limits; kidneys negative for masses or renal calculi, incidentally vascular abnormalities noted: Calcific atherosclerotic changes are present in the aorta and iliofemoral vessels. Mild focal dilatation of the infrarenal aorta at 2.4 cm but there is no evidence of an abdominal aortic aneurysm. diverticulosis noted and discussed and patient states has 10 year colonoscopy to be done next year. Cystoscopy findings: Mild to moderate bladder wall thickening, bilobar prostate enlargement, no suspicious bladder lesions. Will refer to vascular for further evaluation of aortic dilation and calcifications noted. Plan tamsulosin 0.4 mg daily, referral to vascular, follow-up in 3 months [facility] Medical History Arthritis of left knee HTN (hypertension) First degree AV block Vitamin B deficiency Dyslipidemia Hypothyroid Surgical History No pertinent past surgical history Family History Father AAA (abdominal aortic aneurysm) Mother Arthritis Social History Housing: [facility] Patient Tobacco Use Status: Former Tobacco user Years Smoked: 15 years ago e-Cigarette/Vaping Use: Never Used Second Hand Smoke Exposure: No service: No Current occupational status: retired Cognitive needs: No Hearing needs: No Vision needs: No Review of Systems Const All systems reviewed & are unremarkable except as noted in HPI and below Reports no additional complaints Eyes Reports no additional complaints ENT Reports no additional complaints Card Reports no additional complaints Resp Reports no additional complaints GI Reports no additional complaints Reports as per HPI Musc Reports no additional complaints Skin/Breast Reports system reviewed and no additional complaints, except as documented Neuro Reports no additional complaints Psych Reports no additional complaints Endo Reports no additional complaints Jay Jay/Lymph Reports no additional complaints Aller/Immun Reports no additional complaints Office Procedures Post Void Residual Post Residual Void Post Void Residual (PVR): 153 [id number] Void Residual by ultrasound Results AMB Urinalysis, Automated UA Leukoctes 0 Joyce/uL Last Edit by ABIMAEL Bryant on 04/21/24 13:48 UA Nitrite Negative Last Edit by ABIMAEL Bryant on 04/21/24 13:48 UA Urobilinogen 0.2 mg/dL Last Edit by ABIMAEL Bryant on 04/21/24 13:4 8 UA Protein 0 mg/dL Last Edit by Jose Lowery, A on 04/21/24 13:48 UA pH 6.5 Last Edit by Jose Sebastián, RMA on 04/21/24 13:48 UA Blood 10 Randy/uL Last Edit by Jose Lowery, A on 04/21/24 13:48 UA Specific [place] 1.005 Last Edit by Jose Lowery, A on 04/21/24 13: 48 UA Ketone Negative Last Edit by Jose Lowery, A on 04/21/24 13:48 UA Bilirubin 0 mg/dL Last Edit by oJse Lowery A on 04/21/24 13:48 UA Glucose 0 mg/dL Last Edit by Jose Lowery, A on 04/21/24 13:48 Results Reviewed Results Reviewed: Laboratory Last Values Urine pH (Auto) 6.5 04/21/24 13:36 Specific [place] (Auto) 1.005 04/21/24 13:36 Urine Protein (Auto) 0 mg/dL 04/21/24 13:36 Glucose (UA)(Auto) 0 mg/dL 04/21/24 13:36 Urine Ketones (Auto) Negative 04/21/24 13:36 Urine Blood (Auto) 10 Randy/uL 04/21/24 13:36 Urine Nitrite (Auto) Negative 04/21/24 13:36 Urine Bilirubin (Auto) 0 mg/dL 04/21/24 13:36 Urine Urobilinogen (Auto) 0.2 mg/dL 04/21/24 13:36 Leukocyte Esterase (Auto) 0 Joyce/uL 04/21/24 13:36 Date of Service: 01/09/24 EXAMINATION: CT ABDOMEN AND PELVIS WITHOUT CONTRAST CLINICAL INFORMATION: Hematuria. COMPARISON: Abdominal aortic ultrasound 09/06/2015. TECHNIQUE: Multidetector volumetric imaging was performed from the superior aspect of the liver through the pubic symphysis. Sagittal and coronal reformatted images were obtained on the technologist's workstation. This CT examination was performed using dose optimization techniques as appropriate, variously including the following: *Automated exposure control *Adjustment of mA and/or kV according to patient size (this includes techniques or standardized protocols for targeted exams where dose is matched to indication/reason for exam; i.e. extremities or head) *Use of iterative reconstruction technique DLP: 632 mGy-cm FINDINGS: LUNG BASES: The visualized lung bases are unremarkable. LIVER, GALLBLADDER, AND BILIARY TREE: The liver is normal in size, shape, and attenuation. No focal hepatic lesion or biliary ductal dilatation is present. The gallbladder is unremarkable with no evidence of radiopaque gallstones, gallbladder wall thickening, or obvious pericholecystic inflammatory changes. PANCREAS: Unremarkable. SPLEEN: Unremarkable. ADRENAL GLANDS: Unremarkable. KIDNEYS AND URETERS: The kidneys are normal in size, shape, and attenuation. No hydronephrosis, hydroureter, or calculi seen. No perinephric stranding. BLADDER: Partially distended but unremarkable. GASTROINTESTINAL TRACT: The small and large bowel are unremarkable aside from colonic diverticulosis without diverticulitis. The appendix is unremarkable. ABDOMINAL WALL: Small bilateral inguinal hernias containing only fat. LYMPH NODES: No retroperitoneal lymphadenopathy. VASCULAR: Calcific atherosclerotic changes are present in the aorta and iliofemoral vessels. Mild focal dilatation of the infrarenal aorta at 2.4 cm but there is no evidence of an abdominal aortic aneurysm. PELVIC VISCERA: The prostate and seminal vesicles are unremarkable. OSSEOUS STRUCTURES: Marked degenerative changes are seen at L4-L5 and L5-S1. No bony destructive lesions. IMPRESSION: 1. A cause for the patient's hematuria has not been found. 2. Incidental note made of colonic diverticulosis without diverticulitis, small bilateral inguinal hernias containing only fat and degenerative changes in the spine. Assessment & Plan Assessment & Plan (1) Hematuria: Code(s): R31.9 - Hematuria, unspecified Category: Medical (2) History of nicotine dependence: Code(s): Z87.891 - Personal history of nicotine dependence Category: Medical (3) Aorta disorder: Code(s): I77.9 - Disorder of arteries and arterioles, unspecified Category: Medical (4) Microscopic hematuria: Code(s): R31.29 - Other microscopic hematuria Category: Medical (5) BPH loc w urin obs/LUTS: Code(s): N40.1 - Benign prostatic hyperplasia with lower urinary tract symptoms Category: Medical Plan: Continue tamsulosin. The patient was referred to [facility] vascular specialty and we received correspondence from the office that the aneurysm was small. The patient has a family history of aneurysms. A consult was sent for a referral to [facility] vascular the patient states he has not heard from them as yet. PSA screening. The patient has pending blood work ordered by his PCP. Plan The patient had an opportunity to ask questions regarding treatment plan. The patient expressed understanding and agreement with the above treatment plan. The patient is aware they should contact our office by phone for worsening of their current condition or the appearance of new symptoms. Compliance is encouraged with any medications and followup testing that is ordered. It is a privilege to be allowed the opportunity to participate in the urologic care of your patient. If you have any questions or concerns regarding treatment for the above conditions please do not hesitate to contact me. The office telephone contact is [phone]. This note is constructed in part using voice recognition software. While every effort has been made to ensure accuracy digital music instructor errors may have been included. Yours sincerely, Micaela Paul MD Orders: Orders AMB Post Void Residual by ultrasound Today N39.8 - Other specified disorders of urinary system AMB Urinalysis Automated Today Z13.9 - Encounter for screening, unspecified Medications: Refilled tamsulosin (Flomax) 0.4 mg PO BEDTIME 90 caps 3RF Coding Level of Care Code Est Pt Level 4 (44034) Diagnoses Hematuria R31.9 History of nicotine dependence Z87.891 Aorta disorder I77.9 Microscopic hematuria R31.29 BPH loc w urin obs/LUTS N40.1 CPT Codes Post Residual Void - PVR CPT Code: 83439-Mxiv Void Residual by ultrasound ([id number])
== END 2024-04-21 14:17 | disposition home or self-care (01) ==
PROVIDERS: PCP Nurse Practitioner Family; Visit Provider Urology
DX: R31.9 Hematuria, unspecified (principal); Z87.891 Personal history of nicotine dependence; I77.9 Disorder of arteries and arterioles, unspecified; R31.29 Other microscopic hematuria; N40.1 Benign prostatic hyperplasia with lower urinary tract symptoms; Z13.9 Encounter for screening, unspecified
CPT/HCPCS: 99214

== ENCOUNTER → 2024-04-21 13:15 | Outpatient (BNVA) | payer MEDICARE, SELFPAY | PROVIDERS: PCP Nurse Practitioner Family; Visit Provider Urology | DX: R31.9 Hematuria, unspecified (principal); I77.9 Disorder of arteries and arterioles, unspecified; N40.1 Benign prostatic hyperplasia with lower urinary tract symptoms; R31.29 Other microscopic hematuria; Z87.891 Personal history of nicotine dependence | CPT/HCPCS: 51798; 81003; 99212 ==

== ENCOUNTER 2024-06-28 06:01 | Outpatient (REF) | payer MEDICARE, SELFPAY ==
[2024-06-28 10:11] LABS: MANUAL DIFF FLAG NO
[2024-06-28 10:18] LABS: Basophils Percent Auto 0.5 % (0-2); Eosinophils Absolute Auto 0.2 X10*3/uL (0.0-0.4); Hematocrit 43.6 % (42.0-52.0); Hemoglobin 14.8 g/dl (14.0-18.0); Imm Gran Abs Auto 0.03 X10*3/uL (0.00-0.03); Imm Gran Pct Auto 0.4 % (0.0-0.4); Lymphocytes Absolute Auto 2.2 X10*3/uL (1.2-4.9); Mean Corpuscular HGB Conc 33.9 g/dl (31.0-36.0); Mean Corpuscular Hemoglobin 33.5 pg (27.0-33.0); Mean Corpuscular Volume 98.6 fL (80.0-98.0); Mean Platelet Volume 9.5 fL (9.4-12.4); Monocytes Absolute Auto 0.9 X10*3/uL (0.1-1.2); Monocytes Percent Auto 10.8 % (2-11); Neutrophils Absolute Auto 4.6 x10*3/uL (2.0-8.3); Neutrophils Percent Auto 57.3 % (45-73); Platelet Count 314 X10*3/uL (160-400); Red Blood Count 4.42 X10*6/uL (4.60-5.80); Red Cell Distribution Width 12.5 % (11.0-16.0)
[2024-06-28 11:27] LABS: Prostate Specific Antigen Scr 1.66 ng/mL (<0.05-4.0)
[2024-06-28 11:28] LABS: Alanine Aminotransferase 28 U/L (0-40); Albumin Level 4.1 g/dL (3.5-5.0); Alkaline Phosphatase 65 U/L (39-117); Anion Gap 16 (12-20); Aspartate Amino Transferase 18 U/L (5-37); Bilirubin Total 0.7 mg/dL (0.0-1.0); Blood Urea Nitrogen 22 mg/dL (9-16); Calcium 9.7 mg/dL (8.4-10.2); Carbon Dioxide 25 mmol/L (22-29); Chloride 105 mmol/L (96-108); Cholesterol 147 mg/dL (<200); Estimated Glomerular Filt Rate 57; Glucose Fasting 125 mg/dL (60-99); HDL Cholesterol 55 mg/dL (>40); LDL Cholesterol Calculated 63 mg/dL (<100); Potassium 4.5 mmol/L (3.3-5.1); Sodium 141 mmol/L (135-145); TSH reflex Free T4 4.33 uIU/mL (0.32-4.0); Total Protein 7.2 g/dL (6.5-8.0); Triglycerides 147 mg/dL (<150)
[2024-06-28 12:26] LABS: Free T4 (Free Thyroxine) 1.14 ng/dL (0.71-1.85)
== END 2024-06-28 06:02 | disposition home or self-care (01) ==
LOC: HO.HMGCLDS 06:01
PROVIDERS: PCP Nurse Practitioner Family; Visit Provider Nurse Practitioner Family
DX: I10 Essential (primary) hypertension (principal); Z12.5 Encounter for screening for malignant neoplasm of prostate
CPT/HCPCS: 36415; 80053; 80061; 84153; 84439; 84443; 85025

== ENCOUNTER 2024-07-06 07:31 | Outpatient (AMB) | payer MEDICARE, SELFPAY ==
--- NOTE | 2024-07-06 07:38 | A.OFFPC_ITS ---
Vital Signs 07/06/24 07:41 Height 6 ft Weight 230 lb BMI 31.2 BP 132/70 Blood Pressure Location Rt brachial Position Sitting Pulse 61 Pulse Source Pulse Oximeter Pulse Oximetry (%) 95 Oxygen Delivery Method Room Air Intake Visit Reasons: PE Intake Note: Pt is here today for his PE Allergies No Known Allergies Allergy (Verified 07/06/24 07:40) Medication List - Last Reconciled 07/06/24 by JANELLE Ashley aspirin (Adult Low Dose Aspirin) 81 mg PO DAILY atorvastatin 20 mg PO BEDTIME levothyroxine 175 mcg PO DAILY 90 days lisinopril 40 mg PO DAILY magnesium oxide 400 mg PO DAILY metoprolol tartrate 12.5 mg (1/2 x 25 mg) PO BID 90 days tamsulosin (Flomax) 0.4 mg PO BEDTIME Tobacco use date assessed: 07/06/24 Fall risk assessment: No Falls in past year Last assessed Fall Risk: 07/06/24 Dental Screening Dental Screen Date: 07/06/24 Did you have a dental visit in the last 12 months?: No Did you have a dental problem in the last 6 months where you did not have access to dental care?: No Was dental information given to patient?: Patient has dentist HPI PE HPI Details Pt is here for a PE. Labs were already performed. Colon screen is up to date. PSA is up to date, follows up with urology. Denies dribbling with urination, weak stream, and frequent nocturia. Pt's fasting blood sugar was elevated. Educated pt on proper diet and limiting bad carbs. Will repeat labs in 2 months. Pt's TSH was elevated. He is taking levothyroxine 175mcg daily. Will repeat labs in 2 months. Pt c/o bilat knee pain. He reports that this is worse when he first stands up or with walking. Will order XRs. Pt has a macular lesion to his left mandaen. Pt is fair skinned. Will refer to derm. [facility] Medical History Arthritis of left knee HTN (hypertension) First degree AV block Vitamin B deficiency Dyslipidemia Hypothyroid Surgical History No pertinent past surgical history Family History Father AAA (abdominal aortic aneurysm) Mother Arthritis Social History Housing: Condominium Patient Tobacco Use Status: Former Tobacco user Years Smoked: 15 years ago e-Cigarette/Vaping Use: Never Used Second Hand Smoke Exposure: No service: No Current occupational status: retired Cognitive needs: No Hearing needs: No Vision needs: No Questionnaire Thrive Questionnaire Date Thrive assessed: 01/05/24 MARIFER-7 AMB Questionnaire MARIFER-7 Date MARIFER - 7 assessed: 01/05/24 Source: Developed by Drs. Lake Childress, Carole Andre, Clinton Galvan and colleagues, with an educational vee from [employer]. Review of Systems Const Denies chills and Denies fever(s) Eyes Denies blurry vision ENT Denies vertigo, Denies dizziness and Denies sore throat Card Denies chest pain at rest, Denies chest pain with activity, Denies diaphoresis, Denies dyspnea and Denies dyspnea on exertion Resp Denies cough, Denies dyspnea, Denies dyspnea on exertion and Denies wheezing GI Denies abdominal pain, Denies melena, Denies hematochezia, Denies constipation, Denies diarrhea and Denies loose stools Denies hematuria Musc Denies numbness and Denies tingling Skin/Breast Denies lesions Neuro Denies vertigo, Denies dizziness, Denies numbness and Denies tingling Psych Denies anxiety, Denies depression, Denies homicidal ideation, Denies suicidal ideation and Denies other (substance abuse) Aller/Immun Denies wheezing Physical exam (Primary Care) Vital Signs: Last Vital Signs Pulse 61 07/06/24 07:41 BP 132/70 07/06/24 07:41 Pulse Ox 95 07/06/24 07:41 Oxygen Delivery Method Room Air 07/06/24 07:41 BMI result Body Mass Index 31.2 Tobacco/Smoking Status: Tobacco use Status Tobacco use date assessed 07/06/24 07/06/24 07:40 Patient Tobacco Use Status Former Tobacco user 07/06/24 07:39 e-Cigarette/Vaping Use Never Used 07/06/24 07:39 Thrive Assessment: Date of Thrive Assessment Date Thrive assessed 01/05/24 07/06/24 07:39 Const General: cooperative Nutritional Appearance: well nourished Orientation/consciousness: patient oriented x3 HENMT Head: Yes normal to inspection, Yes normocephalic and Yes atraumatic Ears: TM's normal bilaterally Eyes General: appearance normal, both eyes and all related structures Alignment and Position: alignment normal and position normal Neck Neck: Yes normal visual inspection, Yes no lymphadenopathy and Yes supple Resp Effort & Inspection: normal respiratory effort Auscultation: clear to auscultation bilaterally Cardio Rate: regular rate Rhythm: regular rhythm Heart sounds: S1 normal heart sound present, S2 normal heart sound present and no murmurs GI Palpation (GI): Soft to palpation and nontender Auscultation: normal bowel sounds Other: TJ: prostate slightly enlarged, no nodules palpated Male General Exam: Yes normal external exam Penis: normal penis Scrotum: scrotum normal, testes descended bilaterally and no inguinal hernias Testes: no testicular mass Skin Other: left mandaen with macular darker crusty lesion Rashes: no rashes Neuro General: patient oriented x3, moves all extremities, no focal motor deficits and deep tendon reflexes 2+ bilaterally Romberg Test: Negative Extrem Other: bilat knees slightly puffy, slight crepitus, - lachmans, - mcmurrays Psych Appearance: grossly normal Mental Status: mental status grossly normal Speech and movement: Normal speech and movement present Affect: normal affect Attitude: cooperative Thought process: Normal thought process present Thought content: Normal thought content present Insight: Good insight present (Psych) Judgement: Good judgement present (Psych) Assessment and Plan Assessment & Plan (1) Elevated TSH: Code(s): R79.89 - Other specified abnormal findings of blood chemistry Plan: Labs ordered (2) Elevated fasting blood sugar: Code(s): R73.01 - Impaired fasting glucose Plan: Educated on proper diet and limiting bad carbs, labs ordered (3) Skin lesion: Code(s): L98.9 - Disorder of the skin and subcutaneous tissue, unspecified Plan: Referred to derm (4) Bilateral knee pain: Code(s): M25.561 - Pain in right knee; M25.562 - Pain in left knee Plan: XRs ordered Plan The patient agreed to the use of a medical corps officer for this encounter. Scribed for Josue Bragg, FREIGHT RATE ANALYST- by Malinda Avendaño, medical corps officer, on 07/06/2024 at 07:45 EST. Orders: Orders Comprehensive [place]. Panel Fast 2 Months R73.01 - Impaired fasting glucose, R79.89 - Other specified abnormal findings of blood chemistry TSH reflex Free T4 2 Months R73.01 - Impaired fasting glucose, R79.89 - Other specified abnormal findings of blood chemistry XR knee RT 3V Today M25.561 - Pain in right knee, M25.562 - Pain in left knee XR knee LT 3V Today M25.561 - Pain in right knee, M25.562 - Pain in left knee Hemoglobin A1c 2 Months R73.01 - Impaired fasting glucose, R79.89 - Other specified abnormal findings of blood chemistry Referrals Dermatology Referral L98.9 - Disorder of the skin and subcutaneous tissue, u nspecified Coding Level of Care Code Est Pt Prev Care >65y(94772) Diagnoses Elevated TSH R79.89 Elevated fasting blood sugar R73.01 Skin lesion L98.9 Bilateral knee pain M25.561; M25.562
[2024-07-06 07:41] VITALS: BP 132/70; PULSE 61; O2SAT 95; BMI 31.2
== END 2024-07-06 08:19 | disposition home or self-care (01) ==
PROVIDERS: PCP Nurse Practitioner Family; Visit Provider Nurse Practitioner Family
DX: Z00.00 Encounter for general adult medical examination without abnormal findings (principal); R79.89 Other specified abnormal findings of blood chemistry; R73.01 Impaired fasting glucose; M25.562 Pain in left knee; L98.9 Disorder of the skin and subcutaneous tissue, unspecified; M25.561 Pain in right knee
CPT/HCPCS: 99397

== ENCOUNTER 2024-07-07 13:04 | Outpatient (REF) | payer MEDICARE, SELFPAY ==
--- NOTE | ~2024-07-07 | XR_ITS ---
EXAMINATION: XR KNEE, RIGHT XR KNEE, LEFT CLINICAL INFORMATION: Right and left knee pain. COMPARISON: Bilateral knee radiographs dated 06/21/2019. TECHNIQUE: AP, lateral, and sunrise views of the right and left knee. FINDINGS: Right Knee: Moderate medial compartment joint space narrowing with tiny marginal osteophytes, unchanged. No acute fracture or dislocation. No concerning lytic or blastic osseous lesion. Trace joint effusion. No abnormal soft tissue calcification. Left Knee: Zhqybofo-wy-[id number] medial compartment joint space narrowing with tricompartmental marginal osteophytes, slightly progressed. No acute fracture or dislocation. No concerning lytic or blastic osseous lesion. Trace joint effusion. No abnormal soft tissue calcification. XR/XR knee LT 3V IMPRESSION: RIGHT KNEE: Moderate medial compartment osteoarthritis, unchanged. Trace joint effusion. LEFT KNEE: Tricompartmental osteoarthritis, most prominent within the medial compartment, slightly progressed when compared to the prior radiographs. Electronically signed by: Javi Ventura MD 07/21/2024 08:54 PM EDT
--- NOTE | ~2024-07-07 | XR_ITS ---
EXAMINATION: XR KNEE, RIGHT XR KNEE, LEFT CLINICAL INFORMATION: Right and left knee pain. COMPARISON: Bilateral knee radiographs dated 06/21/2019. TECHNIQUE: AP, lateral, and sunrise views of the right and left knee. FINDINGS: Right Knee: Moderate medial compartment joint space narrowing with tiny marginal osteophytes, unchanged. No acute fracture or dislocation. No concerning lytic or blastic osseous lesion. Trace joint effusion. No abnormal soft tissue calcification. Left Knee: [id number] medial compartment joint space narrowing with tricompartmental marginal osteophytes, slightly progressed. No acute fracture or dislocation. No concerning lytic or blastic osseous lesion. Trace joint effusion. No abnormal soft tissue calcification. XR/XR knee RT 3V IMPRESSION: RIGHT KNEE: Moderate medial compartment osteoarthritis, unchanged. Trace joint effusion. LEFT KNEE: Tricompartmental osteoarthritis, most prominent within the medial compartment, slightly progressed when compared to the prior radiographs. Electronically signed by: Javi Ventura MD 07/21/2024 08:54 PM EDT
== END 2024-07-07 13:05 | disposition home or self-care (01) ==
LOC: HO.HMGCX 13:04
PROVIDERS: PCP Nurse Practitioner Family; Visit Provider Nurse Practitioner Family
DX: M25.561 Pain in right knee (principal); M25.562 Pain in left knee
CPT/HCPCS: 73562

== ENCOUNTER 2024-08-10 07:40 | Outpatient (AMB) | payer MEDICARE, SELFPAY ==
--- NOTE | 2024-08-10 07:57 | MHC.OFFVIS ---
Intake Visit Reasons: Bilateral knee pains Intake Note: Eliseo is a 69 year old male who presents with complaints of progressively worsening bilateral knee pains. He describes his pains as sharp and severe in nature. His pains have gotten worse over the last few years in spite of continued non operative treatments. The patient states that he has had 2 cortisone injections in the past. The injections gave him relief for only a few days. He has not had a viscosupplementation injection. He has failed the last 3 months of conservative treatment which have included Voltaren topical gel, a home exercise program, Tylenol and anti-inflammatory medicines. He denies any locking or giving way. The patient states that his bilateral knee pains are now interfering with his activities of daily living and his ability to sleep well through the night. He wishes to hold off on total knee replacement surgery for as long as possible. Allergies No Known Allergies Allergy (Verified 08/10/24 08:00) Medication List - Last Reconciled 08/10/24 by Robbie Foy MD aspirin (Adult Low Dose Aspirin) 81 mg PO DAILY atorvastatin 20 mg PO BEDTIME levothyroxine 175 mcg PO DAILY 90 days lisinopril 40 mg PO DAILY magnesium oxide 400 mg PO DAILY metoprolol tartrate 12.5 mg (1/2 x 25 mg) PO BID 90 days tamsulosin (Flomax) 0.4 mg PO BEDTIME [facility] Medical History Arthritis of left knee HTN (hypertension) First degree AV block Vitamin B deficiency Dyslipidemia Hypothyroid Surgical History No pertinent past surgical history Family History Father AAA (abdominal aortic aneurysm) Mother Arthritis Social History Housing: Condominium Patient Tobacco Use Status: Former Tobacco user Years Smoked: 15 years ago e-Cigarette/Vaping Use: Never Used Second Hand Smoke Exposure: No service: No Current occupational status: retired Cognitive needs: No Hearing needs: No Vision needs: No Physical Exam Const Other: Well-nourished well-developed very friendly male awake alert and oriented x3 in no acute distress Extrem Other: Bilateral lower extremity examination shows good capillary refill, no skin lesions noted, normal sensation light touch Bilateral knee examination shows minimal effusions, palpable crepitus with range of motion, pain with range of motion, range of motion from -3 degrees to 115 degrees, no instability Results Reviewed Results Reviewed: X-rays of the patient's bilateral knee show joint space narrowing, subchondral sclerosis, no acute bony abnormalities Assessment & Plan Assessment & Plan (1) Osteoarthritis of left knee: Code(s): M17.12 - Unilateral primary osteoarthritis, left knee Category: Medical (2) Osteoarthritis of right knee: Code(s): M17.11 - Unilateral primary osteoarthritis, right knee Category: Medical Plan Mr. Waldron presents with bilateral knee pains due to osteoarthritis. I had a lengthy discussion with the patient regarding the treatment options. He wishes to hold off on total knee replacement surgery for as long as possible. I agree with this plan. Thus, I will see whether or not the patient's insurance company will cover a viscosupplementation injection, such as Durolane, for both of his knees. I will see him back once the injections are available. Feel free to call me at any time should questions regarding his orthopedic management arise. Thank you very much for asking me to see this very friendly gentleman. I spent 20 minutes in reviewing the patient's records and imaging studies, seeing the patient and documenting in the medical record. Coding Level of Care Code New Pt Level 3 (69491) Complex EM visit Add On G2211 Diagnoses Osteoarthritis of left knee M17.12 Osteoarthritis of right knee M17.11
== END 2024-08-10 08:20 | disposition home or self-care (01) ==
PROVIDERS: PCP Nurse Practitioner Family; Visit Provider Orthopaedic Surgery
DX: M17.0 Bilateral primary osteoarthritis of knee (principal)
CPT/HCPCS: 99203; G2211

== ENCOUNTER → 2024-08-10 07:40 | Outpatient (BNVA) | payer MEDICARE, SELFPAY | PROVIDERS: PCP Nurse Practitioner Family; Visit Provider Orthopaedic Surgery | DX: M17.0 Bilateral primary osteoarthritis of knee (principal) | CPT/HCPCS: 99202 ==

== ENCOUNTER 2024-08-25 07:46 | Outpatient (AMB) | payer MEDICARE, SELFPAY ==
[2024-08-25 07:50] VITALS: BMI 31.2
--- NOTE | 2024-08-25 07:50 | MHC.OFFVIS ---
Vital Signs 08/25/24 07:50 Height 6 ft Weight 230 lb BMI 31.2 Intake Visit Reasons: Bilateral knee pain Intake Note: Eliseo is a 69 year old male who presents with complaints of progressively worsening bilateral knee pains. He describes his pains as sharp in nature. He has had multiple cortisone injections in the past which gave him minimal relief. He has not had a viscosupplementation injection. He has done physical therapy exercises which aggravated his pain. He has also tried Tylenol and anti-inflammatory medicines which gave him minimal relief. He wishes to hold off on surgery for as long as possible. Allergies No Known Allergies Allergy (Verified 08/25/24 07:57) Medication List - Last Reconciled 08/25/24 by Robbie Foy MD aspirin (Adult Low Dose Aspirin) 81 mg PO DAILY atorvastatin 20 mg PO BEDTIME levothyroxine 175 mcg PO DAILY 90 days lisinopril 40 mg PO DAILY magnesium oxide 400 mg PO DAILY metoprolol tartrate 12.5 mg (1/2 x 25 mg) PO BID 90 days tamsulosin (Flomax) 0.4 mg PO BEDTIME [facility] Medical History Arthritis of left knee HTN (hypertension) First degree AV block Vitamin B deficiency Dyslipidemia Hypothyroid Surgical History No pertinent past surgical history Family History Father AAA (abdominal aortic aneurysm) Mother Arthritis Social History Housing: [facility] Patient Tobacco Use Status: Former Tobacco user Years Smoked: 15 years ago e-Cigarette/Vaping Use: Never Used Second Hand Smoke Exposure: No service: No Current occupational status: retired Cognitive needs: No Hearing needs: No Vision needs: No Physical Exam Vital Signs: BMI result Body Mass Index 31.2 Const Other: Well-nourished well-developed very friendly male awake alert and oriented x3 in no acute distress Extrem Other: Bilateral lower extremity examination shows good capillary refill, no skin lesions noted, normal sensation light touch Bilateral knee examination shows minimal effusions, palpable crepitus with range of motion, pain with range of motion, range of motion from -3 degrees to 115 degrees, no instability Office Procedures Joint Injection/Aspiration Joint Injection/Aspiration Primary Site: left knee Prep: site was prepped using aseptic technique Injected: 1% plain lidocaine and other (48 mg of Synvisc-One viscosupplementation) Procedure: The patient tolerated the procedure well Coding 19977 - Large joint Procedure code (CPT) selection complete Joint Injection/Aspiration Joint Injection/Aspiration Primary Site: right knee Prep: other (48 mg of Synvisc-One viscosupplementation) Injected: 1% plain lidocaine Procedure: The patient tolerated the procedure well Coding 73469 - Large joint Procedure code (CPT) selection complete Results Reviewed Results Reviewed: X-rays of the patient's bilateral knees taken previously show joint space narrowing, subchondral sclerosis, no acute bony abnormalities Assessment & Plan Assessment & Plan (1) Bilateral knee pain: Code(s): M25.561 - Pain in right knee; M25.562 - Pain in left knee Category: Medical (2) Osteoarthritis of left knee: Code(s): M17.12 - Unilateral primary osteoarthritis, left knee Category: Medical (3) Osteoarthritis of right knee: Code(s): M17.11 - Unilateral primary osteoarthritis, right knee Category: Medical Plan Mr. Waldron presents with bilateral knee pains due to osteoarthritis. I had a lengthy discussion with the patient regarding the treatment options. The risks and benefits of bilateral knee Synvisc-One viscosupplementation injections were discussed at length with the patient. The patient wished to proceed. He tolerated the injections well. He will continue with his home exercise program. He will contact me prior to his follow-up appointment in 3 months should any questions or concerns arise. Feel free to call me at any time should questions regarding his orthopedic management arise. I spent 21 minutes in reviewing the patient's records and imaging studies, seeing the patient and documenting in the medical record. Orders: Orders AMB Joint Injection/Aspiration Today M17.11 - Unilateral primary osteoarthritis, right knee AMB Joint Injection/Aspiration Today M17.12 - Unilateral primary osteoarthritis, left knee Coding Level of Care Code Est Pt Level 3 (33968) Complex EM visit Add On G2211 Diagnoses Bilateral knee pain M25.561; M25.562 Osteoarthritis of left knee M17.12 Osteoarthritis of right knee M17.11 CPT Codes Coding - 37184 Large joint: 25129 - Large joint ([id number]) Coding - 45401 Large joint: 26460 - Large joint ([id number])
== END 2024-08-25 08:23 | disposition home or self-care (01) ==
PROVIDERS: PCP Nurse Practitioner Family; Visit Provider Orthopaedic Surgery
DX: M17.0 Bilateral primary osteoarthritis of knee (principal)
CPT/HCPCS: 20610; 99213

== ENCOUNTER → 2024-08-25 07:46 | Outpatient (BNVA) | payer MEDICARE, SELFPAY | PROVIDERS: PCP Nurse Practitioner Family; Visit Provider Orthopaedic Surgery | DX: M17.0 Bilateral primary osteoarthritis of knee (principal); M25.561 Pain in right knee; M25.562 Pain in left knee | CPT/HCPCS: 20610; 99212; J2003; J7325 ==

== ENCOUNTER 2024-09-09 06:46 | Outpatient (REF) | payer MEDICARE, SELFPAY ==
[2024-09-09 10:48] LABS: Estimated Average Glucose 103 mg/dL; Hemoglobin A1C 126.3169 umol/L; Hemoglobin A1c % 5.2 % (<6.0); Total Hemoglobin (HGBA1C) 3770.2886 umol/L
[2024-09-09 11:12] LABS: Alanine Aminotransferase 25 U/L (0-40); Albumin Level 4.4 g/dL (3.5-5.0); Alkaline Phosphatase 67 U/L (39-117); Anion Gap 15 (12-20); Aspartate Amino Transferase 26 U/L (5-37); Bilirubin Total 1.2 mg/dL (0.0-1.0); Blood Urea Nitrogen 23 mg/dL (9-16); Calcium 9.8 mg/dL (8.4-10.2); Carbon Dioxide 25 mmol/L (22-29); Chloride 102 mmol/L (96-108); Estimated Glomerular Filt Rate > 60; Glucose Fasting 111 mg/dL (60-99); Sodium 138 mmol/L (135-145); TSH reflex Free T4 2.61 uIU/mL (0.32-4.0); Total Protein 7.4 g/dL (6.5-8.0)
== END 2024-09-09 06:47 | disposition home or self-care (01) ==
LOC: HO.HMGCLDS 06:46
PROVIDERS: PCP Nurse Practitioner Family; Visit Provider Nurse Practitioner Family
DX: R73.01 Impaired fasting glucose (principal); R79.89 Other specified abnormal findings of blood chemistry
CPT/HCPCS: 36415; 80053; 83036; 84443

== ENCOUNTER → 2024-12-01 07:25 | Outpatient (BNVA) | payer MEDICARE, SELFPAY | PROVIDERS: PCP Nurse Practitioner Family; Visit Provider Orthopaedic Surgery | DX: M17.0 Bilateral primary osteoarthritis of knee (principal) | CPT/HCPCS: 99212 ==

== ENCOUNTER 2024-12-06 07:59 | Outpatient (AMB) | payer MEDICARE, SELFPAY ==
[2024-12-06 08:08] VITALS: BP 128/70; PULSE 71; O2SAT 96; BMI 30.2
--- NOTE | 2024-12-06 08:08 | A.OFFPC_ITS ---
Vital Signs 12/06/24 08:08 Height 6 ft Weight 223 lb BMI 30.2 BP 128/70 Blood Pressure Location Lt brachial Position Sitting Pulse 71 Pulse Source Pulse Oximeter Pulse Oximetry (%) 96 Oxygen Delivery Method Room Air Intake Visit Reasons: 6 months f/up Intake Note: pt is here for 6 mon f.up Band Saw Runner Required: No Accompanied by: Self / Same As Patient Allergies No Known Allergies Allergy (Verified 12/06/24 08:08) Tobacco use date assessed: 12/06/24 Fall risk assessment: No Falls in past year Last assessed Fall Risk: 12/06/24 Dental Screening Dental Screen Date: 12/06/24 Did you have a dental visit in the last 12 months?: Yes Did you have a dental problem in the last 6 months where you did not have access to dental care?: No Was dental information given to patient?: Patient has dentist HPI 6 months f/up HPI Details Chief Complaint The patient presents for a generalized follow-up for hypertension. History of Present Illness The patient is a 69-year-old male presenting with a generalized follow-up for hypertension. He has a history of essential hypertension with stable vital signs at present. Recently, during lab evaluations conducted towards the end of summer and into the fall, an elevated fasting blood sugar was identified. In response, the patient has initiated dietary interventions including intermittent fasting, which he reports is progressing well. No adverse symptoms or complications related to hypertension or his new dietary regimen were noted during this visit. Social History - The patient has begun implementing tary changes emphasizing intermittent fasting to address elevated fasting blood sugar. Health Maintenance - Discussed intermittent fasting as part of dietary modification. - Monitoring of fasting blood sugar marlon espinoza in subsequent lab evaluations. Review of Systems denies any fevers, chills, SOB, CP, STEWART, blurred vision, or dizziness Physical Exam General: Cooperative, healthy appearing, comfortable, no acute distress and well developed Orientation: Patient oriented x3 Limitations: No limitations Head: Normal to inspection Ears: Hearing grossly normal bilaterally Nose: Normal external nose present Face and sinus: Normal facial exam Eyes: Appearance normal, both eyes and all related structures Neck: Normal visual inspection and Yes full ROM Respiratory: Normal respiratory effort and able to speak in complete sentences. Clear to auscultation bilaterally Cardiovascular: Regular rate and rhythm. Normal S1 and S2 GI: Normal to inspection. Soft to palpation and nontender Skin: No rashes or lesions noted Neuro: Patient oriented x3 Extremities: Normal to inspection, no edema noted Results - Labs: Elevated fasting blood sugar not ed in recent evaluations from late summer to fall. Plan - Continue current management for essent ial hypertension; monitor vital signs regularly. - Maintain dietary modifications with in termittent fasting to manage elevated fasting blood sugar. - Schedule follow-up in six months to re assess hypertension and blood sugar levels. Patient was informed and verbally consented to the use of an ambient scribe for clinic note documentation during this visit. Discussion Notes I discussed with the patient the importance of maintaining current dietary modifications, specifically intermittent fasting, to effectively address the elevated fasting blood sugar noted in recent lab work. We agreed to continue this regimen and monitor any changes through regular lab tests. The need to keep hypertension under control was emphasized, and I recommended that we review his progress and any new symptoms in six months. Patient Instructions - Continue your dietary changes, especia lly the intermittent fasting. - Monitor your blood pressure at home re gularly. - Watch for any symptoms like dizziness or fatigue, and contact the clinic if they occur. - Return for a follow-up in six months. [facility] Medical History Arthritis of left knee HTN (hypertension) First degree AV block Vitamin B deficiency Dyslipidemia Hypothyroid Surgical History No pertinent past surgical history Family History Father AAA (abdominal aortic aneurysm) Mother Arthritis [facility] Tobacco Use Status: Former Tobacco user Years Smoked: 15 years ago e-Cigarette/Vaping Use: Never Used Second Hand Smoke Exposure: No service: No Current occupational status: retired Cognitive needs: No Hearing needs: No Vision needs: No Questionnaire PHQ-9 Over the last 2 weeks, how often have you been bothered by any of the following problems? 1. Little interest or pleasure in doing things: not at all 2. Feeling down, depressed, or hopeless: not at all 3. Trouble falling or staying asleep, or sleeping too much: not at all 4. Feeling tired or having little energy: not at all 5. Poor appetite or overeating: not at all 6. Feeling bad about yourself - or that you are a failure or have let yourself or your family down: not at all 7. Trouble concentrating on things, such as reading the newspaper or watching television: not at all 8. Moving or speaking so slowly that other people could have noticed. Or the opposite - being so fidgety or restless that you have been moving around a lot more than usual: not at all 9. Thoughts that you would be better off or of hurting yourself in some way: not at all Total score: 0 Depression Screening Interpretation: Negative Depression Screening Done: Yes 72905 - PHQ-9 Billing: Yes Source: Developed by Drs. Lake Childress, Carole Andre, Clinton Galvan and colleagues, with an educational vee from [employer]. Thrive Questionnaire Date Thrive assessed: 12/06/24 I am a: Patient What is your living situation today?: I have a steady place to live Within the past 12 months, did the food you bought not last and you didn't have the money to get more?: Never true Within the past 12 months, did you worry whether your food would run out before you got money to buy more?: Never true Do you have trouble paying for medicines?: No Do you have trouble getting transportation to medical appointments?: No Do you have trouble paying your heating and electricity bill?: No Do you have trouble taking care of your child, family member or friend?: No Do you have trouble with day-to-day activities such as bathing, preparing meals, shopping, managing finances, etc.?: No Are you currently unemployed and looking for a job?: No Are you interested in more education?: No Please select the resources that you would like help with: None Currently or been in a relationship where the following occur: No concerns reported THRIVE Score: 0 AUDIT C Alcohol Use Questionnaire (AUDIT-C) 1. How often do you have a drink containing alcohol?: 2-3 times a week 2. How many drinks containing alcohol do you have on a typical day when you are drinking?: 1 or 2 3. How often do you have six or more drinks on one occasion?: Less than monthly Total Score: 4 Score Reviewed/Action Taken: Yes MARIFER-7 AMB Questionnaire MARIFER-7 Date MARIFER - 7 assessed: 12/06/24 Feeling nervous, anxious, or on edge: 2 = More than half the days Not being able to stop or control worryin = Several days Worrying too much about different things: 1 = Several days Trouble relaxin = Several days Being so restless that it is hard to sit still: 1 = Several days Becoming easily annoyed or irritable: 1 = Several days Feeling afraid as if something awful might happen: 0 = Not at all Total MARIFER-7 score (0-4 normal; 5-9 mild; 10-14 moderate; 15-21 severe): 7 Source: Developed by Drs. Lake Childress, Carole Andre, Clinton Galvan and colleagues, with an educational vee from [employer]. MARIFER-7 Assessment Billing MARIFER-7 Assessment Tool: MARIFER-7 Assessment 43753 Physical exam (Primary Care) Vital Signs: Last Vital Signs Pulse 71 12/06/24 08:08 BP 128/70 12/06/24 08:08 Pulse Ox 96 12/06/24 08:08 Oxygen Delivery Method Room Air 12/06/24 08:08 BMI result Body Mass Index 30.2 Tobacco/Smoking Status: Tobacco use Status Tobacco use date assessed 12/06/24 12/06/24 08:13 Patient Tobacco Use Status Former Tobacco user 12/06/24 08:08 e-Cigarette/Vaping Use Never Used 12/06/24 08:08 PHQ-9: PHQ-9 Score PHQ-9: Total score 0 12/06/24 08:13 Depression Screening Interpretation: Negative Thrive Assessment: Date of Thrive Assessment Date Thrive assessed 12/06/24 12/06/24 08:13 Currently or been in a relationship where the following occur: No concerns reported Coding Level of Care Code Est Pt Level 3 (84413) Diagnoses HTN (hypertension) I10 Dyslipidemia E78.5 Additional Codes MARIFER-7 Assessment Billing - MARIFER-7 Assessment Tool: MARIFER-7 Assessment 97480 ([id number]) PHQ-9 - 82624 - PHQ-9 Billing: Yes ([id number]) Assessment & Plan Assessment & Plan (1) HTN (hypertension): Code(s): I10 - Essential (primary) hypertension Category: Medical (2) Dyslipidemia: Code(s): E78.5 - Hyperlipidemia, unspecified Category: Medical Plan . Orders: Orders TSH reflex Free T4 Today E78.5 - Hyperlipidemia, unspecified, I10 - Essential (primary) hypertension UA CC w/rflx Micro + Cult Today E78.5 - Hyperlipidemia, unspecified, I10 - Essential (primary) hypertension Lipid Panel Today E78.5 - Hyperlipidemia, unspecified, I10 - Essential (prim myae) hypertension Complete Blood Count Auto Diff Today E78.5 - Hyperlipidemia, unspecified, I10 - Essential (primary) hypertension Comprehensive Osborn. Panel Fast Today E78.5 - Hyperlipidemia, unspecified, I10 - Essential (primary) hypertension
== END 2024-12-06 08:58 | disposition home or self-care (01) ==
PROVIDERS: PCP Nurse Practitioner Family; Visit Provider Nurse Practitioner Family
DX: I10 Essential (primary) hypertension (principal); E78.5 Hyperlipidemia, unspecified

== ENCOUNTER → 2024-12-06 07:59 | Outpatient (BNVA) | payer MEDICARE, SELFPAY | PROVIDERS: PCP Nurse Practitioner Family; Visit Provider Nurse Practitioner Family | DX: I10 Essential (primary) hypertension (principal); E78.5 Hyperlipidemia, unspecified | CPT/HCPCS: 96127; 99212 ==

== ENCOUNTER 2025-02-11 07:27 | Day surgery (SDC) | payer MEDICARE, SELFPAY ==
[2025-02-09 12:03] VITALS: BMI 29.3
--- NOTE | 2025-02-09 14:13 | P.CONAN_ITS ---
Documented by User: Amy Norris NP 02/09/25 14:14 HPI - Anesthesia Eval Consult details Narrative: 70yo M for Colonoscopy Follows [facility] vascular: AAA ~ 2.6cm [facility] Active Problems Active Problems: All Active Problems Osteoarthritis of right knee (Acute) Osteoarthritis of left knee (Acute) Knee osteoarthritis (Acute) Bilateral knee pain (Acute) Elevated fasting blood sugar (Acute) BPH loc w urin obs/LUTS (Acute) Aortic aneurysm (Acute) Aorta disorder (Acute) History of nicotine dependence (Acute) Hematuria (Acute) Microscopic hematuria (Acute) Anemia (Acute) Blurred vision, bilateral (Acute) Major depression in partial remission (Acute) Eye abnormality (Acute) Subcutaneous nodule of left hand (Acute) Urinary frequency (Acute) Constipation (Acute) Physical exam (Acute) Anxiety (Acute) Skin lesion (Acute) Elevated TSH (Acute) Dyslipidemia (Acute) Screening PSA (prostate specific antigen) (Acute) HTN (hypertension) (Acute) Past Medical History Medical History AAA (abdominal aortic aneurysm) Thyroid disease Arthritis of left knee HTN (hypertension) First degree AV block Vitamin B deficiency Dyslipidemia Hypothyroid Family History Family History Father AAA (abdominal aortic aneurysm) Mother Arthritis Surgical History Surgical History H/O wisdom tooth extraction H/O colonoscopy No pertinent past surgical history Social History Social History Housing: Condominium Patient Tobacco Use Status: Former Tobacco user Years Smoked: 15 years ago e-Cigarette/Vaping Use: Never Used Second Hand Smoke Exposure: No Use of substances other than those prescribed or required for medical reasons: Yes Substance Use Type Other:: THC gummies 2x/wk last used 02/09 Substance Use Frequency: Weekly Are you DNR?: No Advance Directives: No Advance Directives Information Provided: Yes service: No Current occupational status: retired Cognitive needs: No Hearing needs: No Vision needs: No Meds Allergies Allergy/AdvReac Type Severity Reaction Status Date / Time No Known Allergies Allergy Verified 02/11/25 08:01 Home Medications ?Medication ?Instructions ?Recorded ?Confirmed ?Last Taken ?Type aspirin 81 mg tablet,delayed 81 mg PO DAILY 06/26/23 02/11/25 02/08/25 History release (Adult Low Dose Aspirin) Exam Height,Weight and Vital Signs: Height 6 ft 0.5 in Weight 99.337 kg Assessment and Plan Assessment Anesthesia Assessment: Chart Reviewed Documented by User: India Pablo MD 02/11/25 09:43 PMFSH Past Medical History Medical History AAA (abdominal aortic aneurysm) Thyroid disease Arthritis of left knee HTN (hypertension) First degree AV block Vitamin B deficiency Dyslipidemia Hypothyroid Family History Family History Father AAA (abdominal aortic aneurysm) Mother Arthritis Family history of problems with anesthesia: No Surgical History Surgical History H/O wisdom tooth extraction H/O colonoscopy No pertinent past surgical history History of Problems with Anesthesia: No Social History Social History [facility] Patient Tobacco Use Status: Former Tobacco user Years Smoked: 15 years ago e-Cigarette/Vaping Use: Never Used Second Hand Smoke Exposure: No Use of substances other than those prescribed or required for medical reasons: Yes Substance Use Type Other:: THC gummies 2x/wk last used 02/09 Substance Use Frequency: Weekly Are you DNR?: No Advance Directives: No Advance Directives Information Provided: Yes service: No Current occupational status: retired Cognitive needs: No Hearing needs: No Vision needs: No Meds Allergies Allergy/AdvReac Type Severity Reaction Status Date / Time No Known Allergies Allergy Verified 02/11/25 08:01 Home Medications ?Medication ?Instructions ?Recorded ?Confirmed ?Last Taken ?Type aspirin 81 mg tablet,delayed 81 mg PO DAILY 08/02/11/25 02/08/25 History release (Adult Low Dose Aspirin) Exam Height,Weight and Vital Signs: Height 6 ft 0.5 in Weight 99.337 kg Vital Signs Temp Pulse Resp BP Pulse Ox O2 Del Method 02/11/25 08:02 98.3 F 82 16 159/81 H 99 Room Air Airway Mallampati Class: II TM Dist: >3cm Neck ROM: Full Denture: Upper and Lower Loose/Missing/Broken Teeth: Yes (Full dentures ) Heart: RRR Lungs: CTAB Assessment and Plan Assessment Anesthesia Assessment: Anesthesia Plan Discussed and Chart Reviewed Final Anesthetic Review Family History of Problems with Anesthesia: No History of Problems with Anesthesia: No NPO: Yes ASA Class: III Final Preanesthetic Review: No Changes in Pt Med Stat, Meds/Allgs Chart Reviewed, Consent Obtained/Reviewed and Anes Risks/Benef Reviewed Patient Risk: Intermediate Procedure Risk: Low Assessment/Block/Sedation in SS: Assess/Block/Sedation-SS Anesthetic Plan Anesthetic Plan: TIVA Disposition: Standard PACU
[2025-02-11 08:02] VITALS: BP 159/81; PULSE 82; RESP 16; TEMP 36.8; O2SAT 99; BMI 27.8
[2025-02-11] MEDS: Lactated Ringers 1,000 ML 100 ML IVCONT (09:04)
--- NOTE | 2025-02-11 09:25 | MHC.SHP ---
Pre-Procedural Eval Section A - 24 Hr Update-Section A only Date of Service: 02/11/25 Section B - Complete if H&P > 30 days Chief Complaint: screening Details of Present Illness: see H&P no changes Relevant Family History (Specify if Yes): No Relevant Social History: None Present Medications: see Short Stay Collaborative assessment Medical History: No relevant PMH History of Previous Operations: No relevant previous surgery Allergies: Allergies Allergy/AdvReac Type Severity Reaction Status Date / Time No Known Allergies Allergy Verified 02/11/25 08:01 Review of Systems Sugical H&P ROS: Negative: Constitution, Cardiovascular, Respiratory, Neurological, Psychiatric, Hem-Onc, Allergic/Immunologic, Gastrointestinal, Genitourinary, Musculoskeletal, Integumentary, Endocrine and Eyes/Ears/Nose/Throat Exam Surgical H&P Exam: Normal: HEENT, Normal: Heart, Normal: Lungs, Normal: Extremities, Normal: Abdomen, Normal: Skin and Normal: Neurological Plan Diagnosis/Plan: Unchanged I have reviewed the history and physical and performed a pertinent physical examination on my patient. No changes have occurred unless specified. Time Spent With Patient Time: Total time managing care of this patient today ____ minutes.
[2025-02-11 10:06] VITALS: BP 98/65; PULSE 78; RESP 16; TEMP 37; O2SAT 99
--- NOTE | 2025-02-11 10:07 | PM.OP ---
Brief Operative Note Date of Service: 02/11/25 Pre-op diagnosis: screening Post-op diagnosis: same Procedure: colonoscopy Surgeon: Giovanny Taylor MD Anesthesia: MAC Was an Supervisor Braiding used for this Procedure?: No Estimated blood loss (mL): 2 Pathology: other Condition: stable Disposition: PACU
[2025-02-11 10:20] VITALS: BP 124/74; PULSE 72; RESP 16; O2SAT 99
--- NOTE | 2025-02-11 10:26 | OP_ITS ---
DATE OF SERVICE: 02/11/2025 SURGEON: Giovanny Taylor MD INDICATIONS: Colon cancer screening. PREOPERATIVE DIAGNOSIS: POSTOPERATIVE DIAGNOSIS: PROCEDURE PERFORMED: Colonoscopy to the terminal ileum with snare polypectomy and biopsy. ESTIMATED BLOOD LOSS: COMPLICATIONS: ANESTHESIA: Monitored anesthesia care. ASSISTANTS: SPECIMENS: DESCRIPTION OF PROCEDURE: History and physical performed. The risks and benefits of the procedure were explained to the patient. Informed consent was obtained. The patient was placed in the left lateral decubitus position. A digital rectal exam was performed and was found to be normal. The Olympus pediatric videocolonoscope was introduced into the rectum and advanced to the cecum. The cecum was identified by transillumination, palpation, and identification of ileocecal valve. Examination was performed. The scope was removed. He tolerated the procedure well and was returned to recovery area in stable condition. FINDINGS: The terminal ileum was examined. Abdominal wall pressure was used to assist in advancement of the scope due to looping in the sigmoid. No ileal abnormalities were seen. The visualized colonic mucosa was normal. In the cecum, was an 8 mm sessile polyp, which was removed with a cold snare and biopsy forceps. No other polyps were identified. There was a moderate sigmoid diverticulosis. Retroflexed examination showed some moderate-sized internal hemorrhoids. IMPRESSION: Colon polyp. RECOMMENDATION: Follow up the biopsy results. MD PHILLY Bryan/YANNI / [id number]
== END 2025-02-11 10:37 | disposition home or self-care (01) ==
PROVIDERS: PCP Nurse Practitioner Family; Visit Provider Internal Medicine Gastroenterology
PROC: 0DJD8ZZ Inspection of Lower Intestinal Tract, Via Natural or Artificial Opening Endoscopic (ICD-10-PCS; CPT 45378; principal; 2025-02-11 09:10)
DX: Z12.11 Encounter for screening for malignant neoplasm of colon (principal); D12.0 Benign neoplasm of cecum; K57.30 Diverticulosis of large intestine without perforation or abscess without bleeding; K64.8 Other hemorrhoids; I10 Essential (primary) hypertension; I71.40 Abdominal aortic aneurysm, without rupture, unspecified; E03.9 Hypothyroidism, unspecified; Z79.82 Long term (current) use of aspirin; Z79.899 Other long term (current) drug therapy; Z87.891 Personal history of nicotine dependence
CPT/HCPCS: 45385; 45380; 88305; J2003; J2704

== ENCOUNTER 2025-03-01 08:10 | Outpatient (AMB) | payer MEDICARE, SELFPAY ==
--- NOTE | 2025-03-01 08:14 | MHC.OFFVIS ---
Intake Visit Reasons: Bilateral knee pains Intake Note: Eliseo is a 70 year old male who presents with complaints of progressively worsening bilateral knee pains. He describes his knee pains as sharp in nature. He has failed the last 3 months of conservative treatment which has included a home exercise program, physical therapy exercises, Tylenol, topical diclofenac gel and anti-inflammatory medicines. He has had cortisone injections in the past which gave him minimal relief. He has also had bilateral knee Synvisc-One injections which gave him good relief. He wishes to hold off on total knee replacement surgery if at all possible. He states that his bilateral knee pains are now interfering with his activities of daily living and his ability to sleep well through the night. Allergies No Known Allergies Allergy (Verified 03/01/25 08:28) Medication List - Last Reconciled 03/01/25 by Robbie Foy MD aspirin (Adult Low Dose Aspirin) 81 mg PO DAILY atorvastatin 20 mg PO BEDTIME levothyroxine 175 mcg PO DAILY lisinopril 40 mg PO DAILY metoprolol tartrate 12.5 mg (1/2 x 25 mg) PO BID 90 days tamsulosin (Flomax) 0.4 mg PO BEDTIME [facility] Medical History AAA (abdominal aortic aneurysm) Thyroid disease Arthritis of left knee HTN (hypertension) First degree AV block Vitamin B deficiency Dyslipidemia Hypothyroid Surgical History H/O wisdom tooth extraction H/O colonoscopy No pertinent past surgical history Family History Father AAA (abdominal aortic aneurysm) Mother Arthritis [facility] Patient Tobacco Use Status: Former Tobacco user Years Smoked: 15 years ago e-Cigarette/Vaping Use: Never Used Second Hand Smoke Exposure: No service: No Current occupational status: retired Cognitive needs: No Hearing needs: No Vision needs: No Physical Exam Const Other: Well-nourished well-developed very friendly male awake alert and oriented x3 in no acute distress Extrem Other: Bilateral lower extremity examination shows good capillary refill, no skin lesions noted, normal sensation light touch Bilateral knee examination shows minimal effusions, palpable crepitus with range of motion, pain with range of motion, no instability Results Reviewed Results Reviewed: X-rays of the patient's bilateral knees taken previously show joint space narrowing, subchondral sclerosis, no acute bony abnormalities Assessment & Plan Assessment & Plan (1) Osteoarthritis of right knee: Code(s): M17.11 - Unilateral primary osteoarthritis, right knee Category: Medical (2) Osteoarthritis of left knee: Code(s): M17.12 - Unilateral primary osteoarthritis, left knee Category: Medical Plan Mr. Waldron presents with bilateral knee pains due to osteoarthritis. I had a lengthy discussion with the patient regarding the treatment options. He wishes to hold off on surgery if at all possible. I agree with this plan. I will see whether or not the patient's insurance company will cover a another set of Synvisc 1 injections. I will see him back once the injections are available. Feel free to call me at any time should questions regarding his orthopedic management arise. I spent 20 minutes in reviewing the patient's records and imaging studies, seeing the patient and documenting in the medical record. Coding Level of Care Code Est Pt Level 3 (87765) Complex EM visit Add On G2211 Diagnoses Osteoarthritis of right knee M17.11 Osteoarthritis of left knee M17.12
== END 2025-03-01 08:30 | disposition home or self-care (01) ==
LOC: HO.HOS 08:10
PROVIDERS: PCP Nurse Practitioner Family; Visit Provider Orthopaedic Surgery
DX: M17.0 Bilateral primary osteoarthritis of knee (principal)
CPT/HCPCS: 99213; G2211

== ENCOUNTER → 2025-03-01 08:10 | Outpatient (BNVA) | payer MEDICARE, SELFPAY | PROVIDERS: PCP Nurse Practitioner Family; Visit Provider Orthopaedic Surgery | DX: M17.0 Bilateral primary osteoarthritis of knee (principal) | CPT/HCPCS: 99212 ==

== ENCOUNTER 2025-03-23 08:13 | Outpatient (AMB) | payer MEDICARE, SELFPAY ==
[2025-03-23 08:21] VITALS: BMI 27.8
--- NOTE | 2025-03-23 08:21 | A.OFFVIS_ITS ---
Vital Signs 03/23/25 08:21 Height 6 ft 0.5 in Weight 208 lb BMI 27.8 Intake Visit Reasons: INJ- Bilateral knee Synvisc-One Intake Note: Eliseo is a 70 year old male who presents with complaints of bilateral knee pains. He describes his pains as sharp in nature. He has failed the last 3 months of conservative treatment which has included physical therapy exercises, a home exercise program, Tylenol and anti-inflammatory medicines. His bilateral knee pains are interfering with his activities of daily living and his ability to sleep well through the night. He wishes to hold off on surgery if at all possible. Allergies No Known Allergies Allergy (Verified 03/23/25 08:21) Medication List - Last Reconciled 03/23/25 by Robbie Foy MD aspirin (Adult Low Dose Aspirin) 81 mg PO DAILY atorvastatin 20 mg PO BEDTIME levothyroxine 175 mcg PO DAILY lisinopril 40 mg PO DAILY metoprolol tartrate 12.5 mg (1/2 x 25 mg) PO BID 90 days tamsulosin (Flomax) 0.4 mg PO BEDTIME [facility] Medical History AAA (abdominal aortic aneurysm) Thyroid disease Arthritis of left knee HTN (hypertension) First degree AV block Vitamin B deficiency Dyslipidemia Hypothyroid Surgical History H/O wisdom tooth extraction H/O colonoscopy No pertinent past surgical history Family History Father AAA (abdominal aortic aneurysm) Mother Arthritis Social History Housing: [facility] Patient Tobacco Use Status: Former Tobacco user Years Smoked: 15 years ago e-Cigarette/Vaping Use: Never Used Second Hand Smoke Exposure: No service: No Current occupational status: retired Cognitive needs: No Hearing needs: No Vision needs: No Physical Exam Vital Signs: BMI result Body Mass Index 27.8 Const Other: Well-nourished well-developed very friendly male awake alert and oriented x3 in no acute distress Extrem Other: Bilateral lower extremity examination shows good capillary refill, no skin lesions noted, normal sensation light touch Bilateral knee examination shows minimal effusions, palpable crepitus with range of motion, pain with range of motion, no instability Office Procedures AMB Joint Injection/Aspiration Joint Injection/Aspiration Primary Site: right knee Injected: other (48 mg of Synvisc-One) Procedure: The patient tolerated the procedure well Coding 22602 - Large joint Procedure code (CPT) selection complete AMB Joint Injection/Aspiration Joint Injection/Aspiration Primary Site: left knee Prep: site was prepped using aseptic technique Injected: other (48 mg of Synvisc-One) Procedure: The patient tolerated the procedure well Coding - Large joint Procedure code (CPT) selection complete Results Reviewed Results Reviewed: X-rays of the patient's bilateral knees taken previously show joint space narrowing, subchondral sclerosis, no acute bony abnormalities Assessment & Plan Assessment & Plan (1) Osteoarthritis of left knee: Code(s): M17.12 - Unilateral primary osteoarthritis, left knee Category: Medical (2) Osteoarthritis of right knee: Code(s): M17.11 - Unilateral primary osteoarthritis, right knee Category: Medical Plan Mr. Waldron presents with bilateral knee pains due to osteoarthritis. The risks and benefits of bilateral knee Synvisc-One viscosupplementation injections were discussed at length with the patient. The patient wished to proceed. He t olerated the injections well. He will continue with his activity modifications. He will contact me prior to his follow-up appointment in 3 months should any questions or concerns arise. Feel free to call me any time should questions regarding his orthopedic management arise. I spent 20 minutes in reviewing the patient's records and imaging studies, seeing the patient and documenting in the medical record. Orders: Orders AMB Joint Injection/Aspiration Today M17.12 - Unilateral primary osteoarthritis, left knee AMB Joint Injection/Aspiration Today M17.11 - Unilateral primary osteoarthritis, right knee Coding Level of Care Code Est Pt Level 3 (94577) Complex EM visit Add On G2211 Diagnoses Osteoarthritis of left knee M17.12 Osteoarthritis of right knee M17.11 CPT Codes Coding - Large joint: 57428 - Large joint ([id number]) Coding - 48978 Large joint: 75951 - Large joint ([id number])
== END 2025-03-23 08:49 | disposition home or self-care (01) ==
LOC: HO.HOS 08:14
PROVIDERS: PCP Nurse Practitioner Family; Visit Provider Orthopaedic Surgery
DX: M17.0 Bilateral primary osteoarthritis of knee (principal)
CPT/HCPCS: 20610; 99213

== ENCOUNTER → 2025-03-23 08:13 | Outpatient (BNVA) | payer MEDICARE, SELFPAY | PROVIDERS: PCP Nurse Practitioner Family; Visit Provider Orthopaedic Surgery | DX: M17.0 Bilateral primary osteoarthritis of knee (principal) | CPT/HCPCS: 20610; 99212; J2003; J7325 ==

== ENCOUNTER → 2025-04-21 08:24 | Outpatient (BNVA) | payer MEDICARE, SELFPAY | PROVIDERS: PCP Nurse Practitioner Family; Visit Provider Urology ==

== ENCOUNTER 2025-04-25 07:35 | Outpatient (REF) | payer MEDICARE, SELFPAY ==
--- OUTSIDE RECORDS SUMMARY | 2025-02-04 05:10 | XMS_ITS ---
Author Organization [facility] Address [address] [place] [address] Care Team Providers Care Archival Records Clerk Name Role Phone JOYCE FUNEZ Primary Care Provider Giovanny Duke Jr [phone] REASON FOR VISIT screening Encounters Encounter Location Date Provider [place] [facility] [place] [address] [facility] [place] [phone] 02/04/2025 Giovanny Taylor Jr Plan Of Treatment No Information Progress Notes * ALICIA BARTH RDOB: 4 (70 yo M)Acc No.[id number]:02/04/2025 COLON WITH MAC Patient: ALICIA PEDRAZA Provider: Romaine Taylor MD :1955 A ge:70 Y S ex:Male Date:02/04/2025 Address:[place] [address] [facility] Pcp:JOYCE FUNEZ Subjective: * Chief Complaints: * [...] 0 02/04/2025 Generated for Printi ng/Faxing/eTransmitting on: 04/25/2025 07:37 AM EDT
[2025-04-25 11:08] LABS: PSA,Total (Free>4and<10) 1.55 ng/mL (0.00-4.00)
== END 2025-04-25 07:36 | disposition home or self-care (01) ==
LOC: HO.HMGCLDS 07:35
PROVIDERS: PCP Nurse Practitioner Family; Visit Provider Urology
DX: Z12.5 Encounter for screening for malignant neoplasm of prostate (principal); N40.1 Benign prostatic hyperplasia with lower urinary tract symptoms
CPT/HCPCS: 36415; 84153

== ENCOUNTER 2025-05-04 16:11 | Outpatient (AMB) | payer MEDICARE, SELFPAY ==
--- OUTSIDE RECORDS SUMMARY | 2025-02-04 05:10 | XMS_ITS ---
Author Organization [facility] Address [address] [place] [address] Care Team Providers Care Software Release Engineer Name Role Phone JOYCE FUNEZ Primary Care Provider Giovanny Duke Jr REASON FOR VISIT screening Encounters Encounter Location Date Provider Diagnosis [facility] [place] [address] [facility] [place] [phone] 02/04/2025 Giovanny Taylor Jr Plan Of Treatment No Information Progress Notes * ALICIA BARTH RDOB: 4 (70 yo M)Acc No.[id number]:02/04/2025 COLON WITH MAC Patient: ALICIA PEDRAZA Provider: Romaine Taylor MD :1955 A ge:70 Y S ex:Male Date:02/04/2025 Address:[address] [facility] Pcp:JOYCE FUNEZ Subjective: * Chief Complaints: * 1 . Screening. * Medical History: Objective: * Vitals: Assessment: Plan: * Treatment: * * The named appointment provid er may or may not be the originator of this progress note, and it is not deemed complete until electronically signed by the appointment provider. Sign off status: Pending * Provider: Romaine Taylor MD Date: 02/04/2025 Generated for Printi ng/Faxing/eTransmitting on: 05/04/2025 04:13 PM EDT
--- NOTE | 2025-05-04 16:11 | MHC.OFFVIS ---
Intake Visit Reasons: 1 year follow up/PSA Intake Note: Patient presents today via telehealth for a 1y follow up/PSA 04/25 Total PSA:1.55 Urology Meds- Tamsulosin Allergies to Antibiotic- No Known Allergies Blood Thinner- Aspirin Milk Pickup Truck Driver Required: No Accompanied by: Self / Same As Patient Allergies No Known Allergies Allergy (Verified 05/04/25 16:13) Medication List - Last Reconciled 05/04/25 by Micaela Paul MD aspirin (Adult Low Dose Aspirin) 81 mg PO DAILY atorvastatin 20 mg PO BEDTIME levothyroxine 175 mcg PO DAILY lisinopril 40 mg PO DAILY metoprolol tartrate 12.5 mg (2 x 25 mg) PO BID tamsulosin (Flomax) 0.4 mg PO BEDTIME HPI Comments Details: 05/04/2025--Eliseo is a 70-year-old male who has been evaluated due to microscopic hematuria and BPH. He is prescribed tamsulosin 0.4 mg daily. He denies any irritative voiding symptoms or gross blood in the urine. History of nicotine dependence. We will continue PSA screening and follow-up in 1 year in the office to check urinalysis. PSA 04/25/2025--1.55 ng/mL 04/21/24--Eliseo is a 69-year-old male who has been evaluated due to microscopic hematuria and BPH. He is prescribed tamsulosin 0.4 mg daily. He states that he gets at about once at about 03:00am to urinate otherwise feels that he has a good flow. I will continue tamsulosin 0.4 mg daily. Urinalysis blood trace. Bladder scan PVR 153 mL. The patient was referred to [facility] vascular specialty and we received correspondence from the office that the aneurysm was small. The patient has a family history of aneurysms. A consult was sent for a referral to [facility] vascular the patient states he has not heard from them as yet. PSA 03/21/2023 1.35 ng. PSA screening. The patient has pending blood work ordered by his PCP. 01/15/24--Eliseo is here for office cystoscopy he is being evaluated due to microscopic hematuria. History of nicotine dependence. Urine cytology - negative for malignant cells CT urogram reviewed----urinary tract within normal limits; kidneys negative for masses or renal calculi, incidentally vascular abnormalities noted: Calcific atherosclerotic changes are present in the aorta and iliofemoral vessels. Mild focal dilatation of the infrarenal aorta at 2.4 cm but there is no evidence of an abdominal aortic aneurysm. diverticulosis noted and discussed and patient states has 10 year colonoscopy to be done next year. Cystoscopy findings: Mild to moderate bladder wall thickening, bilobar prostate enlargement, no suspicious bladder lesions. Will refer to vascular for further evaluation of aortic dilation and calcifications noted. Plan tamsulosin 0.4 mg daily, referral to vascular, follow-up in 3 months [facility] Medical History AAA (abdominal aortic aneurysm) Thyroid disease Arthritis of left knee HTN (hypertension) First degree AV block Vitamin B deficiency Dyslipidemia Hypothyroid Surgical History H/O wisdom tooth extraction H/O colonoscopy No pertinent past surgical history Family History Father AAA (abdominal aortic aneurysm) Mother Arthritis Social History Housing: Condominium Patient Tobacco Use Status: Former Tobacco user Years Smoked: 15 years ago e-Cigarette/Vaping Use: Never Used Second Hand Smoke Exposure: No service: No Current occupational status: retired Cognitive needs: No Hearing needs: No Vision needs: No Review of Systems Const All systems reviewed & are unremarkable except as noted in HPI and below Reports no additional complaints Eyes Reports no additional complaints ENT Reports no additional complaints Card Reports no additional complaints Resp Reports no additional complaints GI Reports no additional complaints Reports as per HPI Musc Reports no additional complaints Skin/Breast Reports system reviewed and no additional complaints, except as documented Neuro Reports no additional complaints Psych Reports no additional complaints Endo Reports no additional complaints Jay Jay/Lymph Reports no additional complaints Aller/Immun Reports no additional complaints Telehealth Telehealth Telehealth Platform: Telephone Location of provider rendering services: practice address Location of patient: address on file Patient Identification confirmed using: Name, : Yes Telehealth method: voice only Patient verbally consented to treatment: Yes Patient verbally consented to billing insurance company: Yes Patient informed of any privacy concerns related to visit: Yes Minutes spent on Phone/Video with Pt.: 14 Assessment & Plan Assessment & Plan (1) Hematuria: Code(s): R31.9 - Hematuria, unspecified Category: Medical (2) History of nicotine dependence: Code(s): Z87.891 - Personal history of nicotine dependence Category: Medical (3) Microscopic hematuria: Code(s): R31.29 - Other microscopic hematuria Category: Medical (4) BPH loc w urin obs/LUTS: Code(s): N40.1 - Benign prostatic hyperplasia with lower urinary tract symptoms Category: Medical Plan: Continue tamsulosin. History of nicotine dependence. We will continue PSA screening and follow-up in 1 year in the office to check urinalysis. (5) Screening PSA (prostate specific antigen): Code(s): Z12.5 - Encounter for screening for malignant neoplasm of prostate Category: Medical Plan The patient had an opportunity to ask questions regarding treatment plan. The patient expressed understanding and agreement with the above treatment plan. The patient is aware they should contact our office by phone for worsening of their current condition or the appearance of new symptoms. Compliance is encouraged with any medications and followup testing that is ordered. It is a privilege to be allowed the opportunity to participate in the urologic care of your patient. If you have any questions or concerns regarding treatment for the above conditions please do not hesitate to contact me. The office telephone contact is [phone]. This note is constructed in part using voice recognition software. While every effort has been made to ensure accuracy pianos and organs salesperson errors may have been included. Yours sincerely, Micaela Paul MD Orders: Orders PSA,Total (Free>4and<10) 10 Months Z12.5 - Encounter for screening for malignant neoplasm of prostate Medications: Refilled tamsulosin (Flomax) 0.4 mg PO BEDTIME 90 caps 3RF Coding Level of Care Code Tele Est Pt Level 3 (52697) Complex EM visit Add On G2211 Diagnoses Hematuria R31.9 History of nicotine dependence Z87.891 Microscopic hematuria R31.29 BPH loc w urin obs/LUTS N40.1 Screening PSA (prostate specific antigen) Z12.5
== END 2025-05-04 17:28 | disposition home or self-care (01) ==
LOC: HO.HUSH 16:11
PROVIDERS: PCP Nurse Practitioner Family; Visit Provider Urology
DX: R31.9 Hematuria, unspecified (principal); Z87.891 Personal history of nicotine dependence; R31.29 Other microscopic hematuria; N40.1 Benign prostatic hyperplasia with lower urinary tract symptoms; Z12.5 Encounter for screening for malignant neoplasm of prostate
CPT/HCPCS: 99213; G2211

== ENCOUNTER 2025-06-09 09:35 | Outpatient (AMB) | payer MEDICARE, SELFPAY ==
--- OUTSIDE RECORDS SUMMARY | 2025-02-04 05:10 | XMS_ITS ---
Author Organization [facility] Address [address] [place] [address] Care Team Providers Care Safety Advisor Name Role Phone JOYCE FUNEZ Primary Care Provider Giovanny Duke Jr REASON FOR VISIT screening Encounters Encounter Location Date Provider Diagnosis [facility] [place] [address] [facility] [place] [phone] 02/04/2025 Giovanny Taylor Jr Plan Of Treatment No Information Progress Notes * ALICAI BARTH RDOB: 4 (70 yo M)Acc No.[id number]:02/04/2025 COLON WITH MAC Patient: ALICIA PEDRAZA Provider: Romaine Taylor MD :1955 A ge:70 Y S ex:Male Date:02/04/2025 Address:[place] [address] [facility] Pcp:JOYCE FUNEZ Subjective: * Chief Complaints: * [...] 0 02/04/2025 Generated for Robii ng/Faxing/eTransmitting on: 0 06/09/2025 10:02 AM EDT
--- NOTE | 2025-06-09 09:56 | A.OFFPC_ITS ---
Vital Signs 06/09/25 10:01 Height 6 ft 0.5 in Weight 220 lb BMI 29.4 BP 118/74 Blood Pressure Location Rt brachial Position Sitting Respiration 16 Pulse 66 Pulse Source Pulse Oximeter Temp 98.3 F Temp Source Oral Pulse Oximetry (%) 98 Oxygen Delivery Method Room Air Intake Visit Reasons: 6 months f/up Board Saw Runner Required: No Accompanied by: Self / Same As Patient Allergies No Known Allergies Allergy (Verified 06/09/25 09:56) Tobacco use date assessed: 12/06/24 Fall risk assessment: No Falls in past year Last assessed Fall Risk: 06/09/25 Dental Screening Dental Screen Date: 06/09/25 Did you have a dental visit in the last 12 months?: Yes Did you have a dental problem in the last 6 months where you did not have access to dental care?: No Was dental information given to patient?: Patient has dentist HPI 6 months f/up HPI Details Chief Complaint The patient's primary concern today is knee pain. History of Present Illness The patient is a 70-year-old male presenting with a follow-up for hypertension and dyslipidemia management. He denies experiencing any chest pain, dyspnea, abdominal pain, headaches, blurred vision, or dizziness. The patient's blood pressure is stable at 118/74 mmHg, and he has been encouraged to complete fasting laboratory tests in the near future. The patient reports knee pain as his primary complaint today. Approximately two months ago, he received gel injections for the knee pain, which did not provide significant relief. He is currently under the care of an graphics production specialist for this issue and plans to follow up with them. Social History Health Maintenance Review of Systems - Cardiovascular: Denies chest pain, ort hopnea, or syncope. - Respiratory: Denies dyspnea, cough, he moptysis, or wheezing. - Neurological: Denies headaches, dizzin ess, or balance issues. - Gastrointestinal: Denies abdominal lilian n. - Ophthalmologic: Denies blurred vision. Physical Exam General: Cooperative, healthy appearing, comfortable, no acute distress and well developed Orientation: Patient oriented x3 Limitations: No limitations Head: Normal to inspection Ears: Hearing grossly normal bilaterally Nose: Normal external nose present Face and sinus: Normal facial exam Eyes: Appearance normal, both eyes and all related structures Neck: Normal visual inspection and Yes full ROM Respiratory: Normal respiratory effort and able to speak in complete sentences. Clear to auscultation bilaterally Cardiovascular: Regular rate and rhythm. Normal S1 and S2 GI: Normal to inspection. Soft to palpation and nontender Skin: No rashes or lesions noted Neuro: Patient oriented x3 Extremities: swelling to bilat knees Results Plan The patient is advised to continue monitoring his blood pressure, which is currently stable at 118/74 mmHg. He is encouraged to complete fasting laboratory tests to assess his dyslipidemia management further. For his knee pain, the patient is under the care of an graphics production specialist and will follow up with them for further management. Patient Instructions - Continue monitoring blood pressure reg ularly. - Schedule and complete fasting laborato ry tests soon. - Follow up with graphics production specialist f or knee pain management. [facility] Medical History AAA (abdominal aortic aneurysm) Thyroid disease Arthritis of left knee HTN (hypertension) First degree AV block Vitamin B deficiency Dyslipidemia Hypothyroid Surgical History H/O wisdom tooth extraction H/O colonoscopy No pertinent past surgical history Family History Father AAA (abdominal aortic aneurysm) Mother Arthritis Social History Housing: Condominium Patient Tobacco Use Status: Former Tobacco user Years Smoked: 15 years ago e-Cigarette/Vaping Use: Never Used Second Hand Smoke Exposure: No service: No Current occupational status: retired Cognitive needs: No Hearing needs: No Vision needs: No Questionnaire PHQ-9 Over the last 2 weeks, how often have you been bothered by any of the following problems? 1. Little interest or pleasure in doing things: not at all 2. Feeling down, depressed, or hopeless: not at all 3. Trouble falling or staying asleep, or sleeping too much: not at all 4. Feeling tired or having little energy: not at all 5. Poor appetite or overeating: not at all 6. Feeling bad about yourself - or that you are a failure or have let yourself or your family down: not at all 7. Trouble concentrating on things, such as reading the newspaper or watching television: not at all 8. Moving or speaking so slowly that other people could have noticed. Or the opposite - being so fidgety or restless that you have been moving around a lot more than usual: not at all 9. Thoughts that you would be better off or of hurting yourself in some way: not at all Total score: 0 Depression Screening Interpretation: Negative Depression Screening Done: Yes 65978 - PHQ-9 Billing: Yes Source: Developed by Drs. Lake Childress, Clinton Morrow and colleagues, with an educational vee from [employer] Thrive Questionnaire Date Thrive assessed: 12/06/24 MARIFER-7 AMB Questionnaire MARIFER-7 Date MARIFER - 7 assessed: 06/09/25 Feeling nervous, anxious, or on edge: 0 = Not at all Not being able to stop or control worryin = Not at all Worrying too much about different things: 0 = Not at all Trouble relaxin = Not at all Being so restless that it is hard to sit still: 0 = Not at all Becoming easily annoyed or irritable: 0 = Not at all Feeling afraid as if something awful might happen: 0 = Not at all Total MARIFER-7 score (0-4 normal; 5-9 mild; 10-14 moderate; 15-21 severe): 0 Source: Developed by Drs. Lake Childress, Clinton Morrow and colleagues, with an educational vee from [employer] MARIFER-7 Assessment Billing MARIFER-7 Assessment Tool: MARIFER-7 Assessment 90119 Physical exam (Primary Care) Vital Signs: Last Vital Signs Temp 98.3 F 06/09/25 10:01 Pulse 66 06/09/25 10:01 Resp 16 06/09/25 10:01 BP 118/74 06/09/25 10:01 Pulse Ox 98 06/09/25 10:01 Oxygen Delivery Method Room Air 06/09/25 10:01 BMI result Body Mass Index 29.4 Tobacco/Smoking Status: Tobacco use Status Tobacco use date assessed 12/06/24 06/09/25 09:58 Patient Tobacco Use Status Former Tobacco user 06/09/25 09:58 e-Cigarette/Vaping Use Never Used 06/09/25 09:58 PHQ-9: PHQ-9 Score PHQ-9: Total score 0 06/09/25 10:05 Depression Screening Interpretation: Negative Thrive Assessment: Date of Thrive Assessment Date Thrive assessed 12/06/24 06/09/25 09:58 Coding Level of Care Code Est Pt Level 3 (46340) Diagnoses Knee osteoarthritis M17.9 Dyslipidemia E78.5 HTN (hypertension) I10 Additional Codes MARIFER-7 Assessment Billing - MARIFER-7 Assessment Tool: MARIFER-7 Assessment 26068 ([id number]) PHQ-9 - 40141 - PHQ-9 Billing: Yes ([id number]) Assessment & Plan Assessment & Plan (1) Knee osteoarthritis: Code(s): M17.9 - Osteoarthritis of knee, unspecified Category: Medical (2) Dyslipidemia: Code(s): E78.5 - Hyperlipidemia, unspecified Category: Medical (3) HTN (hypertension): Code(s): I10 - Essential (primary) hypertension Category: Medical Plan .
[2025-06-09 10:01] VITALS: BP 118/74; PULSE 66; RESP 16; TEMP 36.8; O2SAT 98; BMI 29.4
== END 2025-06-09 10:26 | disposition home or self-care (01) ==
LOC: HO.HMCC 09:36
PROVIDERS: PCP Nurse Practitioner Family; Visit Provider Nurse Practitioner Family
DX: M17.9 Osteoarthritis of knee, unspecified (principal); E78.5 Hyperlipidemia, unspecified; I10 Essential (primary) hypertension

== ENCOUNTER → 2025-06-09 09:35 | Outpatient (BNVA) | payer MEDICARE, SELFPAY | PROVIDERS: PCP Nurse Practitioner Family; Visit Provider Nurse Practitioner Family | DX: I10 Essential (primary) hypertension (principal); E78.5 Hyperlipidemia, unspecified; M17.12 Unilateral primary osteoarthritis, left knee | CPT/HCPCS: 96127; 99212 ==

== ENCOUNTER 2025-06-28 08:20 | Outpatient (AMB) | payer MEDICARE, SELFPAY ==
--- OUTSIDE RECORDS SUMMARY | 2025-02-04 05:10 | XMS_ITS ---
Author Organization [facility] Address [address] [place] [address] Care Team Providers Care Horseback Riding Instructor Name Role Phone JOYCE FUNEZ Primary Care Provider Giovanny Duke Jr [phone] REASON FOR VISIT screening Encounters Encounter Location Date Provider Diagnosis [facility] [place] [address] [facility] [place] [id number] 02/04/2025 Giovanny Taylor Jr Plan Of Treatment No Information Progress Notes * ALICIA BARTH RDOB: 4 (70 yo M)Acc No.[id number]:02/04/2025 COLON WITH MAC Patient: ALICIA PEDRAZA Provider: Romaine Taylor MD :1955 A ge:70 Y S ex:Male Date:02/04/2025 Address:[place] [facility] Pcp:JOYCE FUNEZ Subjective: * Chief Complaints: * [...] Taylor MD Date: 0 02/04/2025 Generated for Printi ng/Faxing/eTransmitting on: 06/28/2025 08:31 AM EDT
--- OUTSIDE RECORDS SUMMARY | 2025-02-11 05:10 | XMS_ITS ---
Author Organization [facility] Address [address] [place] [address] Care Team Providers Care Data Deliverables Manager Name Role Phone JOYCE FUNEZ Primary Care Provider Giovanny Duke Jr REASON FOR VISIT screening Encounters Encounter Location Date Provider Diagnosis [facility] [place] Out[place] [address] [place], [place] [phone] 02/11/2025 Giovanny Taylor Jr Colon cancer screening Z12.11 and Colon polyps K63.5 Assessments Encounter Date Diagnosis (ICD Code) Assessment Notes Treatment Notes Treatment Clinical Notes Section Notes 02/11/2025 Colon cancer screening (ICD-10 - Z12.11) 02/11/2025 Colon polyps (ICD-10 - K63.5) Plan Of Treatment No Information Progress Notes * ALICIA BARTH RDOB: 4 (70 yo M)Acc No.[id number]:02/11/2025 COLON WITH MAC Patient: Shelbie NINANATEALICIA HOGAN Provider: Romaine Taylor MD :1955 A ge:70 Y S ex:Male Date:02/11/2025 Address:[id number] Pcp:JOYCE FUNEZ Subjective: * Chief Complaints: * 1 . Screening. * Medical History: Objective: * Vitals: Assessment: * Assessment: 1. C olon cancer screening - Z12.11 (Primary) 2 . C olon polyps - K63.5? Plan: * Treatment: * Procedure Codes: 4 5385 LESION REMOVAL COLONOSCOPY, 58933 COLONOSCOPY AND BIOPSY, Modifiers: 59 , 2093F INTRVL 3+YRS PTS CLNSCP DOCD * * The named appointment provid er may or may not be the originator of this progress note, and it is not deemed complete until electronically signed by the appointment provider. Sign off status: Pending * Provider: Romaine Taylor MD Date: 0 02/11/2025 Generated for Dann wall/Jason/Linaitting on: 0 06/28/2025 08:31 AM EDT
--- NOTE | 2025-06-28 08:26 | A.OFFVIS_ITS ---
Vital Signs 06/28/25 08:28 Height 6 ft Weight 220 lb BMI 29.8 Intake Visit Reasons: Left knee pain and giving way Intake Note: Eliseo is a 70 year old male who presents with complaints of progressively worsening left knee pain and giving way. He describes his pain as sharp in nature. His pain has gotten worse over the last few years in spite of continued non operative treatments. He has failed the last 6 weeks of conservative treatment which has included Tylenol, anti-inflammatory medicines, a home exercise program and physical therapy exercises. The patient states that his left knee will give out several times per day. He has had cortisone injections and viscosupplementation injections. The most recent injections gave him minimal relief. His left knee pain and mechanical symptoms are now interfering with his activities of daily living and his ability to sleep well through the night. Allergies No Known Allergies Allergy (Verified 06/28/25 08:29) Medication List - Last Reconciled 06/28/25 by Robbie Foy MD aspirin (Adult Low Dose Aspirin) 81 mg PO DAILY atorvastatin 20 mg PO BEDTIME levothyroxine 175 mcg PO DAILY lisinopril 40 mg PO DAILY metoprolol tartrate 12.5 mg (1/2 x 25 mg) PO BID tamsulosin (Flomax) 0.4 mg PO BEDTIME [facility] Medical History AAA (abdominal aortic aneurysm) Thyroid disease Arthritis of left knee HTN (hypertension) First degree AV block Vitamin B deficiency Dyslipidemia Hypothyroid Surgical History H/O wisdom tooth extraction H/O colonoscopy No pertinent past surgical history Family History Father AAA (abdominal aortic aneurysm) Mother Arthritis Social History Housing: Condominium Patient Tobacco Use Status: Former Tobacco user Years Smoked: 15 years ago e-Cigarette/Vaping Use: Never Used Second Hand Smoke Exposure: No service: No Current occupational status: retired Cognitive needs: No Hearing needs: No Vision needs: No Physical Exam Vital Signs: BMI result Body Mass Index 29.8 Const Other: Well-nourished well-developed very friendly male awake alert and oriented x3 in no acute distress Extrem Other: Left knee examination shows a minimal effusion, mild crepitus with range of motion, tenderness along his medial joint line, positive Jose Luis's test, no instability Results Reviewed Results Reviewed: X-rays of the patient's left knee taken previously show mild to moderate diffuse joint space narrowing, no acute bony abnormalities Assessment & Plan Assessment & Plan (1) Tear of medial meniscus of left knee: Code(s): S83.242A - Other tear of medial meniscus, current injury, left knee, initial encounter Category: Medical Plan Mr. Waldron presents with progressively worsening left knee pain and mechanical symptoms most likely due to a medial meniscus tear. Thus, I will send the patient for an MRI of his left knee for further evaluation. I will see him back once the MRI is completed to discuss the findings and treatment options. He will continue with his activity modifications in the meantime. Feel free to call me at any time should questions regarding his orthopedic management arise. I spent 20 minutes in reviewing the patient's records and imaging studies, seeing the patient and documenting in the medical record. Orders: Orders MR knee LT wo con 06/29/25 S83.242A - Other tear of medial meniscus, current injury, left knee, initial encounter Coding Level of Care Code Est Pt Level 3 (74646) Complex EM visit Add On G2211 Diagnoses Tear of medial meniscus of left knee S83.242A
[2025-06-28 08:28] VITALS: BMI 29.8
--- OUTSIDE RECORDS SUMMARY | 2025-06-28 08:31 | XMS_ITS | Patient Health Record ---
Author Organization [facility] Address [address] [place] [address] Care Team Providers Care Business Broker Name Role Phone DEE DEE JOYCE Primary Care Provider Giovanny Duke Jr Unavailable Allergies No Known Allergies Results Component Value Reference Range Notes Pathology Reviewed date:02/18/2025 08:46:18 AM Interpretation: Performing Lab:[facility], [address] [place] [phone] Notes/Report: Reason For Referral Referring Provider First Name JOYCE Referring Provider Last Name DEE DEE Referred Organization [facility] Referred Provider Giovanny Soto Jr Referred Address [address] [place] [address],[address],[place], [place],[address], Referred Provider Specialty Gastroentero logy General Notes Lauren Vanessa 2024 01:15:23 PM >REQUESTED AN O BLUE REF FOR VISIT WITH DR SOTO ON 12-27-2024 Referral Priority Routine Medications Medication SIG (Take, Route, Frequency, Duration) Notes Start Date End Date Status Aspir-81 81 MG 1 tablet Orally Once a day Active Levothyroxine Sodium Active Tamsulosin HCl 0.4 MG Oral for 90 Days Active Atorvastatin Calcium 20 MG Oral for 90 Days Active Metoprolol Tartrate 25 MG TAKE 1/2 (ONE- HALF) TABLET BY MOUTH TWICE DAILY Oral for 90 Days Active Lisinopril 5 MG 1 tablet Orally Once a day Active Immunizations Vaccine Route Administration Date Status Comme nts Influenza Unknown 08/24/2024 Administered Social History Alcohol Screen Question Answer Notes Did you have a drink contain ing alcohol in the past year? Yes How often did you have a dri nk containing alcohol in the past year? 2 to 3 times a week (3 points) How many drinks did you have on a typical day when you were drinking in the past year? 3 or 4 drinks (1 point) How often did you have 6 or more drinks on one occasion in the past year? Never (0 point) Points 4 Interpretation Positive Problems Problem Type SNOMED Code ICD Code Onset Dates Problem Status W/U Status Risk Notes Problem 158556955 Aspirin long-term use (V58.66) Active confirmed Problem 825100551 Colon cancer screening (Z12.11) Active confirmed Problem 175239297 Long-term use of aspirin therapy (Z79.82) Active confirmed Vital Signs Temperature 98.4 degrees Fahrenheit 12/27/2024 Blood pressure diastolic 01 mm Hg 12/27/2024 Height 72.5 in 12/27/2024 Blood pressure systolic 001 mm Hg 12/27/2024 Weight 219 lbs 12/27/2024 BMI 29.29 kg/m2 12/27/2024 Encounters Encounter Location Date Provider Diagnosis [facility] [place] [address] [place] [id number] 02/11/2025 Giovanny Soto Jr Colon cancer screening Z12.11 and Colon polyps K63.5 [facility] [address] [place] [phone] 12/27/2024 Giovanny Soto Jr Colon cancer screening Z12.11 and Long-term use of aspirin therapy Z79.82 [facility] [address] [place] [phone] 12/27/2024 Giovanny Soto Jr [facility] [address] [place] [phone] 01/24/2025 Giovanny Soto Jr [facility] [address] [place] [phone] 01/24/2025 Giovanny Soto Jr [facility] [address] [place] [phone] 02/18/2025 Giovanny Soto Jr Assessments Encounter Date Diagnosis (ICD Code) Assessment Notes Treatment Notes Treatment Clinical Notes Section Notes 02/11/2025 Colon cancer screening (ICD-10 - Z12.11) 02/11/2025 Colon polyps (ICD-10 - K63.5) 12/27/2024 Colon cancer screening (ICD-10 - Z12.11) We discussed colonoscopy today. We discussed risks and benefits of the procedure today. He understands these and agrees to proceed. This will be scheduled at his convenience. 12/27/2024 Long-term use of aspirin therapy (ICD-10 - Z79.82) Taking medicine at home - create a routine material was printed We discussed colonoscopy today. We discussed risks and benefits of the procedure today. He understands these and agrees to proceed. This will be scheduled at his convenience. Plan Of Treatment Future Test Test Name Order Date COLONOSCOPY 12/27/2024 Insurance Providers Payer Name Payer Address Payer Phone Subscriber Number Group Number Insured Name Patient Relationship to Insured Coverage Start Date Coverage End Date [facility] [employer] [address] [place] [address] [id number] AILCIA BARTH Self - patient is the insured Medical (General) History Medical History History ICD Code hypertension Hypothyroidism abdominal aortic aneurysm Colonoscopy 01/15, diverticular disease, 10-year follow-up Surgical History Surgery Date(Month/Year) wisdom teeth extraction
== END 2025-06-28 08:40 | disposition home or self-care (01) ==
LOC: HO.HOS 08:21
PROVIDERS: PCP Nurse Practitioner Family; Visit Provider Orthopaedic Surgery
DX: S83.242A Other tear of medial meniscus, current injury, left knee, initial encounter (principal)
CPT/HCPCS: 99213; G2211

== ENCOUNTER → 2025-06-28 08:20 | Outpatient (BNVA) | payer MEDICARE, SELFPAY | PROVIDERS: PCP Nurse Practitioner Family; Visit Provider Orthopaedic Surgery | DX: S83.242A Other tear of medial meniscus, current injury, left knee, initial encounter (principal); X58.XXXA Exposure to other specified factors, initial encounter; Y93.9 Activity, unspecified; Y92.9 Unspecified place or not applicable; Y99.9 Unspecified external cause status | CPT/HCPCS: 99212 ==

== ENCOUNTER → 2025-07-18 07:10 | Outpatient (BNV) | payer MEDICARE, SELFPAY | PROVIDERS: PCP Nurse Practitioner Family; Visit Provider Radiology Diagnostic Radiology | DX: S83.242A Other tear of medial meniscus, current injury, left knee, initial encounter (principal) | CPT/HCPCS: 73721 ==

== ENCOUNTER 2025-07-18 07:14 | Outpatient (REF) | payer MEDICARE, SELFPAY ==
--- OUTSIDE RECORDS SUMMARY | 2025-02-04 05:10 | XMS_ITS ---
Author Organization [facility] Address [address] [place] [address] Care Team Providers Care Editorial Cartoonist Name Role Phone JOYCE FUNEZ Primary Care Provider Giovanny Duke Jr [phone] REASON FOR VISIT screening Encounters Encounter Location Date Provider Diagnosis [facility] [place] [facility] [address] [facility] [place] [id number] 02/04/2025 Giovanny Taylor Jr Plan Of Treatment No Information Progress Notes * ALICIA BARTH RDOB: 4 (70 yo M)Acc No.[id number]:02/04/2025 COLON WITH MAC Patient: ALICIA PEDRAZA Provider: Romaine Taylor MD :1955 A ge:70 Y S ex:Male Date:02/04/2025 Address:[place] [address] [facility] Pcp:JOCYE FUNEZ Subjective: * Chief Complaints: * 1 [...] 0 02/04/2025 Generated for Printi ng/Faxing/eTransmitting on: 0 07/18/2025 07:16 AM EDT
--- OUTSIDE RECORDS SUMMARY | 2025-02-11 05:10 | XMS_ITS ---
Author Organization [facility] Address [address] [place] [address] Care Team Providers Care Wound/Ostomy Clinical Nurse Specialist Name Role Phone JOYCE FUNEZ Primary Care Provider Giovanny Duke Jr [phone] REASON FOR VISIT screening Encounters Encounter Location Date Provider Diagnosis [facility] [place] Out[place] [address] [place], [place] [phone] 02/11/2025 Giovanny Taylor Jr Colon cancer screening Z12.11 and Colon polyps K63.5 Assessments Encounter Date Diagnosis (ICD Code) Assessment Notes Treatment Notes Treatment Clinical Notes Section Notes 02/11/2025 Colon cancer screening (ICD-10 - Z12.11) 02/11/2025 Colon polyps (ICD-10 - K63.5) Plan Of Treatment No Information Progress Notes * ALICIA BARTH RDOB: 4 (70 yo M)Acc No.[id number]:02/11/2025 COLON WITH MAC Patient: Shelbie NINANATEALICIA HOGAN Provider: Romaine Taylor MD :1955 A ge:70 Y S ex:Male Date:02/11/2025 Address:[address] [place] Pcp:JOYCE FUNEZ Subjective: * Chief Complaints: * 1 . Screening. * Medical History: Objective: * Vitals: Assessment: * Assessment: 1. C olon cancer screening - Z12.11 (Primary) 2 . C olon polyps - K63.5? Plan: * Treatment: * Procedure Codes: 4 5385 LESION REMOVAL COLONOSCOPY, 78336 COLONOSCOPY AND BIOPSY, Modifiers: 59 , 7951F INTRVL 3+YRS PTS CLNSCP DOCD * * The named appointment provid er may or may not be the originator of this progress note, and it is not deemed complete until electronically signed by the appointment provider. Sign off status: Pending * Provider: Romaine Taylor MD Date: 0 02/11/2025 Generated for Dann wall/Jason/Linaitting on: 0 07/18/2025 07:16 AM EDT
--- NOTE | ~2025-07-18 | MR_ITS ---
CLINICAL HISTORY: S83.242A - Other tear of medial meniscus, current injury, left knee, ini... MR left knee without contrast Comparison: CR/SR - XR KNEE 3 VIEWS LEFT - 07/07/24 13:14 EDT Findings: There is signal abnormality throughout the medial meniscus with tear of the body and posterior horn. Intact lateral meniscus without tear. The anterior and posterior cruciate ligaments are intact. The medial and lateral collateral ligaments are intact. Medial periligamentous edema. The extensor mechanism is intact. Mild increased signal in the patellar tendon. Small joint effusion. No Spence's cyst. There is a moderate amount of subcortical edema in the medial tibiofemoral compartment which is most prominent in the tibia. There is a mild amount of subcortical edema in the lateral tibiofemoral compartment within tibia. There is a trace amount of subcortical edema within the patellofemoral compartment at the medial patellar facet. Moderate medial tibiofemoral compartment osteophytosis. Tricompartmental chondromalacia. There is full-thickness chondromalacia in the medial tibiofemoral compartment measuring up to 2.2 cm along the medial tibial plateau and 3.3 cm along the medial femoral condyle. There is focal full-thickness chondromalacia in the lateral tibiofemoral compartment of the lateral tibial plateau measuring 0.5 cm. There is fissuring of the cartilage in patellofemoral compartment of the medial patellar facet. Impression: Tear of the medial meniscus. No cruciate or collateral ligament tears. Medial collateral ligament periligamentous edema may indicate strain. Mild patellar tendinopathy. Small joint effusion. Tricompartmental chondromalacia with subcortical edema which is most prominent in the medial tibiofemoral compartment with full-thickness chondromalacia and moderate subcortical edema. This document has been electronically signed by: Romi Laguna MD on 07/19/2025 14:23:53
--- OUTSIDE RECORDS SUMMARY | 2025-07-18 07:16 | XMS_ITS | Patient Health Record ---
Author Organization [facility] Address [address] [place] [address] Care Team Providers Care Electrical Contacts Adjuster Name Role Phone DEE DEE JOYCE Primary Care Provider Giovanny Duke Jr Unavailable [phone] Allergies No Known Allergies Results Component Value Reference Range Notes Pathology Reviewed date:02/18/2025 08:46:18 AM Interpretation: Performing Lab:[facility], [address] [place] [phone] Notes/Report: Reason For Referral Referring Provider First Name JOYCE Referring Provider Last Name DEE DEE Referred Organization [facility] Referred Provider Giovanny Soto Jr Referred Address [address] [place] [address],[address],[place], [place],[address], Referred Provider Specialty Gastroentero logy General Notes [...] Problem Status W/U Status Risk Notes Problem 026115922 Aspirin long-term use (V58.66) Active confirmed Problem 165545303 Colon cancer screening (Z12.11) Active confirmed Problem 850935411 Long-term use of aspirin therapy (Z79.82) Active confirmed Vital Signs Temperature 98.4 degrees Fahrenheit 12/27/2024 Blood pressure diastolic 01 mm Hg 12/27/2024 Height 72.5 in 12/27/2024 Blood pressure systolic 001 mm Hg 12/27/2024 Weight 219 lbs 12/27/2024 BMI 29.29 kg/m2 12/27/2024 Encounters Encounter Location Date Provider Diagnosis [facility] [place] [address] [place] [id number] 02/11/2025 Giovanny Soto Jr Colon cancer screening Z12.11 and Colon polyps K63.5 [facility] [address] [place] [phone] 12/27/2024 Giovanny Soto Jr Colon cancer screening Z12.11 and Long-term use of aspirin therapy Z79.82 [facility] [address] [place] [phone] 12/27/[address] [facility] [address] [place] [phone] 01/24/[address] [facility] [address] [place] [phone] 01/24/[address] [facility] [address] [place] [phone] 02/18/2025 Giovanny Soto Jr Assessments Encounter Date [...] Insured Coverage Start Date Coverage End Date [facility] [employer] [address] [place] [address] [id number] ALICIA BARTH Self - patient is the insured Medical (General) History Medical History History ICD Code hypertension Hypothyroidism abdominal aortic aneurysm Colonoscopy 01/15, diverticular disease, 10-year follow-up Surgical History Surgery Date(Month/Year) wisdom teeth extraction
== END 2025-07-18 07:15 | disposition home or self-care (01) ==
LOC: HO.MRI 07:14
PROVIDERS: PCP Nurse Practitioner Family; Visit Provider Orthopaedic Surgery
DX: S83.242A Other tear of medial meniscus, current injury, left knee, initial encounter (principal)
CPT/HCPCS: 73721

== ENCOUNTER 2025-08-16 08:20 | Outpatient (AMB) | payer MEDICARE, SELFPAY ==
--- NOTE | 2025-08-16 08:23 | A.OFFVIS_ITS ---
Vital Signs 08/16/25 08:24 Height 6 ft Weight 230 lb BMI 31.2 Intake Visit Reasons: Bilateral knee pain and giving way Intake Note: Eliseo is a 70 year old male who presents with complaints of progressively worsening bilateral knee pain and giving way, left greater than right. He describes his pains as sharp in nature. His pain has gotten worse over the last few years in spite of continued non operative treatments. He has failed the last 6 weeks of conservative treatment which has included Tylenol, anti- inflammatory medicines, a home exercise program and physical therapy exercises. The patient states that his left knee will give out several times per day. He has had cortisone injections and viscosupplementation injections. The most recent injections gave him minimal relief. His bilateral knee pains and mechanical symptoms are now interfering with his activities of daily living and his ability to sleep well through the night. Allergies No Known Allergies Allergy (Verified 08/16/25 08:24) Medication List - Last Reconciled 08/16/25 by Robbie Foy MD aspirin (Adult Low Dose Aspirin) 81 mg PO DAILY atorvastatin 20 mg PO BEDTIME levothyroxine 175 mcg PO DAILY lisinopril 40 mg PO DAILY metoprolol tartrate 12.5 mg (1/2 x 25 mg) PO BID tamsulosin (Flomax) 0.4 mg PO BEDTIME [facility] Medical History AAA (abdominal aortic aneurysm) Thyroid disease Arthritis of left knee HTN (hypertension) First degree AV block Vitamin B deficiency Dyslipidemia Hypothyroid Surgical History H/O wisdom tooth extraction H/O colonoscopy No pertinent past surgical history Family History Father AAA (abdominal aortic aneurysm) Mother Arthritis Social History Housing: Condominium Patient Tobacco Use Status: Former Tobacco user Years Smoked: 15 years ago e-Cigarette/Vaping Use: Never Used Second Hand Smoke Exposure: No service: No Current occupational status: retired Cognitive needs: No Hearing needs: No Vision needs: No Physical Exam Vital Signs: BMI result Body Mass Index 31.2 Const Other: Well-nourished well-developed very friendly male awake alert and oriented x3 in no acute distress Extrem Other: Bilateral knee examination shows minimal effusions, mild crepitus with range of motion, tenderness along his medial joint lines, positive Jose Luis's test, no instability Results Reviewed Results Reviewed: Standing full weight-bearing x-rays of the patient's bilateral knees taken previously show mild to moderate joint space narrowing, no acute bony abnormalities MRI of the patient's left knee shows mild to moderate diffuse degenerative changes as well as a tear of the medial meniscus Assessment & Plan Assessment & Plan (1) Tear of medial meniscus of left knee: Code(s): S83.242A - Other tear of medial meniscus, current injury, left knee, initial encounter Category: Medical (2) Tear of medial meniscus of right knee: Code(s): S83.241A - Other tear of medial meniscus, current injury, right knee, initial encounter Category: Medical Plan Mr. Waldron presents with left knee pain and mechanical symptoms due to degenerative joint disease as well as a tear of the medial meniscus. I had a lengthy discussion with the patient regarding the treatment options. At this point he has failed continued non operative treatments. He wishes to hold off on left total knee replacement surgery for as long as possible. I agree with this plan. The risks and benefits of left knee arthroscopic surgery were disc ussed at length with the patient. The patient wishes to proceed with surgery. Surgery will involve left knee arthroscopic partial medial meniscectomy. The patient understands that he may not get 100% relief of his symptoms depending on the severity of his degenerative changes. The patient also has right knee pain and mechanical symptoms most likely due to a medial meniscus tear. Thus, I will send the patient for an MRI of his right knee for further evaluation. The patient will follow up as instructed. Feel free to call me at any time should questions regarding his orthopedic management arise. I spent 20 minutes in reviewing the patient's records and imaging studies, seeing the patient and documenting in the medical record. Orders: Orders knee RT wo con 08/17/25 S83.241A - Other tear of medial meniscus, current injury, right knee, initial encounter Coding Level of Care Code Est Pt Level 3 (15911) Complex EM visit Add On G2211 Diagnoses Tear of medial meniscus of left knee S83.242A Tear of medial meniscus of right knee S83.241A
[2025-08-16 08:24] VITALS: BMI 31.2
== END 2025-08-16 08:49 | disposition home or self-care (01) ==
LOC: HO.HOS 08:21
PROVIDERS: PCP Nurse Practitioner Family; Visit Provider Orthopaedic Surgery
DX: S83.242A Other tear of medial meniscus, current injury, left knee, initial encounter (principal); S83.241A Other tear of medial meniscus, current injury, right knee, initial encounter
CPT/HCPCS: 99214; G2211

== ENCOUNTER → 2025-08-16 08:20 | Outpatient (BNVA) | payer MEDICARE, SELFPAY | PROVIDERS: PCP Nurse Practitioner Family; Visit Provider Orthopaedic Surgery | DX: M25.562 Pain in left knee (principal); M25.561 Pain in right knee; S83.241A Other tear of medial meniscus, current injury, right knee, initial encounter; S83.242A Other tear of medial meniscus, current injury, left knee, initial encounter | CPT/HCPCS: 99212 ==

== ENCOUNTER 2025-09-06 14:19 | Outpatient (AMB) | payer MEDICARE, SELFPAY ==
--- OUTSIDE RECORDS SUMMARY | 2025-02-04 04:10 | XMS_ITS ---
Author Organization [facility] Address [address] [place] [address] Care Team Providers Care Stockbroker Name Role Phone JOYCE FUNEZ Primary Care Provider Giovanny Duke Jr [phone] REASON FOR VISIT screening Encounters Encounter Location Date Provider Diagnosis [facility] [address] [facility] [place] [phone] 02/04/2025 Giovanny Taylor Jr Plan Of Treatment No Information Progress Notes * ALICIA BARTH RDOB: 4 (70 yo M)Acc No.[id number]:02/04/2025 COLON WITH MAC Patient: ALICIA PEDRAZA Provider: Romaine Taylor MD :1955 A ge:70 Y S ex:Male Date:02/04/2025 Address:[address] [facility] Pcp:JOYCE FUNEZ Subjective: * Chief Complaints: * 1 . Screening. * Medical History: Objective: * Vitals: Assessment: Plan: * Treatment: * * The named appointment provid er may or may not be the originator of this progress note, and it is not deemed complete until electronically signed by the appointment provider. Sign off status: Pending * Provider: Romaine Taylor MD Date: 0 02/04/2025 Generated for Robii ng/Faedwing/eTransmitting on: 11/06/2024 05:20 PM EST
--- OUTSIDE RECORDS SUMMARY | 2025-02-11 04:10 | XMS_ITS ---
Author Organization [facility] Address [address] [place] [address] Care Team Providers Care Hand Mixer Name Role Phone JOYCE FUNEZ Primary Care Provider Giovanny Duke Jr [phone] REASON FOR VISIT screening Encounters Encounter Location Date Provider Diagnosis [facility] [place] Out[place] [address] [place], [place] [phone] 02/11/2025 Giovanny Taylor Jr Colon cancer screening Z12.11 and Colon polyps K63.5 Assessments Encounter Date Diagnosis (ICD Code) Assessment Notes Treatment Notes Treatment Clinical Notes Section Notes 02/11/2025 Colon cancer screening (ICD-10 - Z12.11) 02/11/2025 Colon polyps (ICD-10 - K63.5) Plan Of Treatment No Information Progress Notes * ALICIA BARTH RDOB: 4 (70 yo M)Acc No.[id number]:02/11/2025 COLON WITH MAC Patient: Shelbie NINANATEALICIA HOGAN Provider: Romaine Taylor MD :1955 A ge:70 Y S ex:Male Date:02/11/2025 Address:[address] [id number] Pcp:JOYCE FUNEZ Subjective: * Chief Complaints: * 1 . Screening. * Medical History: Objective: * Vitals: Assessment: * Assessment: 1. C olon cancer screening - Z12.11 (Primary) 2 . C olon polyps - K63.5? Plan: * Treatment: * Procedure Codes: 4 5385 LESION REMOVAL COLONOSCOPY, 00006 COLONOSCOPY AND BIOPSY, Modifiers: 59 , 3695F INTRVL 3+YRS PTS CLNSCP DOCD * * The named appointment provid er may or may not be the originator of this progress note, and it is not deemed complete until electronically signed by the appointment provider. Sign off status: Pending * Provider: Romaine Taylor MD Date: 0 02/11/2025 Generated for Dann wall/Jason/Linaitting on: 11/06/2024 05:21 PM EST
[2025-09-06 14:40] VITALS: BP 140/76; PULSE 67; RESP 16; TEMP 37.1; O2SAT 95; BMI 31.3
--- NOTE | 2025-09-06 14:40 | A.OFFPC_ITS ---
Vital Signs 09/06/25 14:40 Height 6 ft Weight 231 lb BMI 31.3 BP 140/76 H Blood Pressure Location Lt brachial Position Sitting Respiration 16 Pulse 67 Pulse Source Pulse Oximeter Temp 98.8 F Temp Source Oral Pulse Oximetry (%) 95 Oxygen Delivery Method Room Air Intake Visit Reasons: pre-op Distribution System Operator Required: No Accompanied by: Self / Same As Patient Allergies No Known Allergies Allergy (Verified 09/06/25 14:44) Medication List - Last Reconciled 09/06/25 by BING Ashley- aspirin (Adult Low Dose Aspirin) 81 mg PO DAILY atorvastatin 20 mg PO BEDTIME levothyroxine 175 mcg PO DAILY lisinopril 40 mg PO DAILY metoprolol tartrate 25 mg PO DAILY tamsulosin (Flomax) 0.4 mg PO BEDTIME Tobacco use date assessed: 09/06/25 Fall risk assessment: 1 Fall in past year Last assessed Fall Risk: 09/06/25 Dental Screening Dental Screen Date: 09/06/25 Did you have a dental visit in the last 12 months?: Yes Did you have a dental problem in the last 6 months where you did not have access to dental care?: No Was dental information given to patient?: Patient has dentist HPI pre-op HPI Details Chief Complaint The patient presents for a pre-operative evaluation prior to a scheduled left medial meniscal repair. History of Present Illness The patient is a 70-year-old male presenting for a pre-operative evaluation. He is scheduled for a left medial meniscal repair in approximately three days. The patient reports he is doing quite well and currently denies any recent fevers, chills, nausea, vomiting, or signs of infection. PT IS CLEAR FOR SURGERY FROM MY STANDPOINT Social History Health Maintenance Review of Systems - Constitutional: Denies fevers and chil ls. - Gastrointestinal: Denies nausea and vo miting. - General: Denies signs of infection. Physical Exam General: Cooperative, healthy appearing, comfortable, no acute distress and well developed Orientation: Patient oriented x3 Limitations: No limitations Head: Normal to inspection Ears: Hearing grossly normal bilaterally Nose: Normal external nose present Face and sinus: Normal facial exam Eyes: Appearance normal, both eyes and all related structures Neck: Normal visual inspection and Yes full ROM Respiratory: Normal respiratory effort and able to speak in complete sentences. Clear to auscultation bilaterally Cardiovascular: Regular rate and rhythm. Normal S1 and S2 GI: Normal to inspection. Soft to palpation and nontender Skin: No rashes or lesions noted, fading ecchymosis to left distal, lateral thigh and to right knee Neuro: Patient oriented x3 Extremities: Normal to inspection Results Plan 1. Pre-Operative Examination Pre-operative laboratory studies will be ordered to be completed in the near future. An EKG will be performed today as part of the pre-operative workup. Discussion Notes I have reviewed the patient's current status, and he is doing quite well. I informed the patient that pre-operative labs will be obtained in the near future and an EKG will be performed today. We discussed that he has no signs or symptoms of infection, such as fevers or chills, and he is medically cleared for his upcoming left medial meniscal repair. Patient Instructions - Please proceed to have an EKG performe d today. - Ensure you complete the ordered pre-op erative lab work prior to your surgery date. [facility] Medical History AAA (abdominal aortic aneurysm) Thyroid disease Arthritis of left knee HTN (hypertension) First degree AV block Vitamin B deficiency Dyslipidemia Hypothyroid Surgical History H/O wisdom tooth extraction H/O colonoscopy No pertinent past surgical history Family History Father AAA (abdominal aortic aneurysm) Mother Arthritis Social [facility] Are you a primary wound care specialist to a significant other at home: No Do you presently have visiting nurse or other home services: No Patient Tobacco Use Status: Former Tobacco user Years Smoked: 15 years ago e-Cigarette/Vaping Use: Never Used Second Hand Smoke Exposure: No service: No Current occupational status: retired Cognitive needs: No Hearing needs: No Vision needs: No Questionnaire PHQ-9 Over the last 2 weeks, how often have you been bothered by any of the following problems? 1. Little interest or pleasure in doing things: not at all 2. Feeling down, depressed, or hopeless: not at all 3. Trouble falling or staying asleep, or sleeping too much: not at all 4. Feeling tired or having little energy: not at all 5. Poor appetite or overeating: not at all 6. Feeling bad about yourself - or that you are a failure or have let yourself or your family down: not at all 7. Trouble concentrating on things, such as reading the newspaper or watching television: not at all 8. Moving or speaking so slowly that other people could have noticed. Or the opposite - being so fidgety or restless that you have been moving around a lot more than usual: not at all 9. Thoughts that you would be better off or of hurting yourself in some way: not at all Total score: 0 Depression Screening Interpretation: Negative Depression Screening Done: Yes 29826 - PHQ-9 Billing: Yes Source: Developed by Drs. Lake Childress, Carole Andre, Clinton Galvan and colleagues, with an educational vee from [employer]. Thrive Questionnaire Date Thrive assessed: 12/06/24 I am a: Patient What is your living situation today?: I have a steady place to live Within the past 12 months, did the food you bought not last and you didn't have the money to get more?: Never true Within the past 12 months, did you worry whether your food would run out before you got money to buy more?: Never true Do you have trouble paying for medicines?: No Do you have trouble getting transportation to medical appointments?: No Do you have trouble paying your heating and electricity bill?: No Do you have trouble taking care of your child, family member or friend?: No Do you have trouble with day-to-day activities such as bathing, preparing meals, shopping, managing finances, etc.?: No Are you currently unemployed and looking for a job?: No Are you interested in more education?: No THRIVE Score: 0 AUDIT C Alcohol Use Questionnaire (AUDIT-C) 1. How often do you have a drink containing alcohol?: 2-3 times a week Total Score: 3 MARIFER-7 AMB Questionnaire MARIFER-7 Date MARIFER - 7 assessed: 09/06/25 Feeling nervous, anxious, or on edge: 0 = Not at all Not being able to stop or control worryin = Not at all Worrying too much about different things: 0 = Not at all Trouble relaxin = Not at all Being so restless that it is hard to sit still: 0 = Not at all Becoming easily annoyed or irritable: 0 = Not at all Feeling afraid as if something awful might happen: 0 = Not at all Total MARIFER-7 score (0-4 normal; 5-9 mild; 10-14 moderate; 15-21 severe): 0 Source: Developed by Drs. Lake Childress, Carole Andre, Clinton Galvan and colleagues, with an educational vee from [employer]. MARIFER-7 Assessment Billing MARIFER-7 Assessment Tool: MARIFER-7 Assessment 60189 Physical exam (Primary Care) Vital Signs: Last Vital Signs Temp 98.8 F 09/06/25 14:40 Pulse 67 09/06/25 14:40 Resp 16 09/06/25 14:40 BP 140/76 H 09/06/25 14:40 Pulse Ox 95 09/06/25 14:40 Oxygen Delivery Method Room Air 09/06/25 14:40 BMI result Body Mass Index 31.3 Tobacco/Smoking Status: Tobacco use Status Tobacco use date assessed 09/06/25 09/06/25 14:41 Patient Tobacco Use Status Former Tobacco user 09/06/25 14:41 e-Cigarette/Vaping Use Never Used 09/06/25 14:41 PHQ-9: PHQ-9 Score PHQ-9: Total score 0 09/06/25 14:48 Depression Screening Interpretation: Negative Thrive Assessment: Date of Thrive Assessment Date Thrive assessed 12/06/24 09/06/25 14:41 Coding Level of Care Code Est Pt Prev Care >65y(51793) Diagnoses Tear of medial meniscus of left knee S83.242A Pre-op evaluation Z01.818 Additional Codes MARIFER-7 Assessment Billing - MARIFER-7 Assessment Tool: MARIFER-7 Assessment 10030 ([id number]) PHQ-9 - 58444 - PHQ-9 Billing: Yes ([id number]) Assessment & Plan Assessment & Plan (1) Tear of medial meniscus of left knee: Code(s): S83.242A - Other tear of medial meniscus, current injury, left knee, initial encounter Category: Medical (2) Pre-op evaluation: Code(s): Z01.818 - Encounter for other preprocedural examination Category: Medical Plan . Orders: Orders Complete Blood Count Auto Diff Today S83.242A - Other tear of medial meniscus, current injury, left knee, initial encounter AMB EKG-In Office Today Z01.818 - Encounter for other preprocedural examination Comprehensive Met. Panel Today S83.242A - Other tear of medial meniscus, current injury, left knee, initial encounter Prothrombin Time INR Today S83.242A - Other tear of medial meniscus, current injury, left knee, initial encounter Partial Thromboplastin Time Today S83.242A - Other tear of medial meniscus, current injury, left knee, initial encounter
--- OUTSIDE RECORDS SUMMARY | 2025-09-06 17:21 | XMS_ITS | Patient Health Record ---
Author Organization [facility] Address [address] [place] [address] Care Team Providers Care Psychiatry Instructor Name Role Phone DEE DEE JOYCE Primary Care Provider Giovanny Duke Jr Unavailable Allergies No Known Allergies Results Component Value Reference Range Notes Pathology Reviewed date:02/18/2025 08:46:18 AM Interpretation: Performing Lab:[facility], [address] [place] [id number] Notes/Report: Reason For Referral Referring Provider First Name JOYCE Referring Provider Last Name DEE DEE Referred Organization [facility] Referred Provider Giovanny Soto Jr Referred Address [address] [place] [address],[address],[place], [place],[address], Referred Provider Specialty Gastroentero logy General Notes [...] Notes Problem Long-term current use of aspirin (051941124500726) Aspirin long-term use (V58.66) Active confirmed Problem Colon cancer screening (183344902) Colon cancer screening (Z12.11) Active confirmed Problem Long-term current use of antiplatelet drug ([id number]) Long-term use of aspirin therapy (Z79.82) Active confirmed Vital Signs Temperature 98.4 degrees Fahrenheit 12/27/2024 Blood pressure diastolic 01 mm Hg 12/27/2024 Height 72.5 in 12/27/2024 Blood pressure systolic 001 mm Hg 12/27/2024 Weight 219 lbs 12/27/2024 BMI 29.29 kg/m2 12/27/2024 Encounters Encounter Location Date Provider Diagnosis [facility] Outpatient [address] [place] [id number] 02/11/2025 Giovanny Soto Jr Colon cancer screening Z12.11 and Colon polyps K63.5 [facility] [address] [place] [phone] 12/27/2024 Giovanny Soto Jr Colon cancer screening Z12.11 and Long-term use of aspirin therapy Z79.82 [facility] [address] [place] [phone] 12/27/2024 Giovanny Soto Jr [facility] [address] [place] [phone] 01/24/2025 Giovanny Soto Jr [facility] [address] [place] [phone] 01/24/2025 Giovanny Soto Jr [facility] [address] [place] [phone] 02/18/2025 Giovanny Soto Jr Assessments Encounter Date [...] Insured Coverage Start Date Coverage End Date [facility] PROFESSIONAL CLAIMS [address] [place] [address] [id number] ALICIA BARTH Self - patient is the insured Medical (General) History Medical History History ICD Code hypertension Hypothyroidism abdominal aortic aneurysm Colonoscopy 01/15, diverticular disease, 10-year follow-up Surgical History Surgery Date(Month/Year) wisdom teeth extraction
== END 2025-09-06 16:28 | disposition home or self-care (01) ==
LOC: HO.HMCC 14:20
PROVIDERS: PCP Nurse Practitioner Family; Visit Provider Nurse Practitioner Family
DX: S83.242A Other tear of medial meniscus, current injury, left knee, initial encounter (principal); Z01.818 Encounter for other preprocedural examination

== ENCOUNTER → 2025-09-06 14:19 | Outpatient (BNVA) | payer MEDICARE, SELFPAY | PROVIDERS: PCP Nurse Practitioner Family; Visit Provider Nurse Practitioner Family | DX: Z01.818 Encounter for other preprocedural examination (principal); M17.12 Unilateral primary osteoarthritis, left knee; S83.242A Other tear of medial meniscus, current injury, left knee, initial encounter; X58.XXXA Exposure to other specified factors, initial encounter; Y93.9 Activity, unspecified; Y92.9 Unspecified place or not applicable; Y99.9 Unspecified external cause status | CPT/HCPCS: 96127; 99212 ==

== ENCOUNTER 2025-09-07 06:01 | Outpatient (REF) | payer MEDICARE, SELFPAY ==
--- OUTSIDE RECORDS SUMMARY | 2025-02-04 04:10 | XMS_ITS ---
Author Organization [facility] Address [address] [place] [address] Care Team Providers Care Project Scientist Name Role Phone JOYCE FUNEZ Primary Care Provider Giovanny Duke Jr [phone] REASON FOR VISIT screening Encounters Encounter Location Date Provider Diagnosis [facility] [address] [facility] [place] [phone] 02/04/2025 Giovanny Taylor Jr Plan Of Treatment No Information Progress Notes * ALICIA BARTH RDOB: 4 (70 yo M)Acc No.[id number]:02/04/2025 COLON WITH MAC Patient: ALICIA PEDRAZA Provider: Romaine Taylor MD :1955 A ge:70 Y S ex:Male Date:02/04/2025 Address:[place] [facility] Pcp:JOYCE FUNEZ Subjective: * Chief Complaints: * 1 . Screening. * Medical History: Objective: * Vitals: Assessment: Plan: * Treatment: * * The named appointment provid er may or may not be the originator of this progress note, and it is not deemed complete until electronically signed by the appointment provider. Sign off status: Pending * Provider: Romaien Taylor MD Date: 0 02/04/2025 Generated for Robii ng/Faedwing/eTransmitting on: 1 11/07/2024 06:04 AM EST
--- OUTSIDE RECORDS SUMMARY | 2025-02-11 04:10 | XMS_ITS ---
Author Organization [facility] Address [address] [place] [address] Care Team Providers Care Blacksmith Farm Name Role Phone JOYCE FUNEZ Primary Care Provider Giovanny Duke Jr REASON FOR VISIT screening Encounters Encounter Location Date Provider Diagnosis [facility] [place] [address] [place], [place] [phone] 02/11/2025 Giovanny Taylor Jr Colon cancer screening Z12.11 and Colon polyps K63.5 Assessments Encounter Date Diagnosis (ICD Code) Assessment Notes Treatment Notes Treatment Clinical Notes Section Notes 02/11/2025 Colon cancer screening (ICD-10 - Z12.11) 02/11/2025 Colon polyps (ICD-10 - K63.5) Plan Of Treatment No Information Progress Notes * ALICIA BARTH RDOB: 4 (70 yo M)Acc No.[id number]:02/11/2025 COLON WITH MAC Patient: Shelbie NINANATEALICIA HOGAN Provider: Romaine Taylor MD :1955 A ge:70 Y S ex:Male Date:02/11/2025 Address:[id number] Pcp:JOYCE FUNEZ Subjective: * Chief Complaints: * 1 . Screening. * Medical History: Objective: * Vitals: Assessment: * Assessment: 1. C olon cancer screening - Z12.11 (Primary) 2 . C olon polyps - K63.5? Plan: * Treatment: * Procedure Codes: 4 5385 LESION REMOVAL COLONOSCOPY, 34406 COLONOSCOPY AND BIOPSY, Modifiers: 59 , 7968F INTRVL 3+YRS PTS CLNSCP DOCD * * The named appointment provid er may or may not be the originator of this progress note, and it is not deemed complete until electronically signed by the appointment provider. Sign off status: Pending * Provider: Romaine Taylor MD Date: 0 02/11/2025 Generated for Dann wall/Jason/Linaitting on: 11/07/2024 06:04 AM EST
--- NOTE | ~2025-09-07 | MR_ITS ---
EXAMINATION: MR KNEE WITHOUT CONTRAST, RIGHT CLINICAL INFORMATION: Medial meniscal tear. Patient reports pain, progression 1.5 years, no history of prior right knee surgery. COMPARISON: X-ray 07/07/2024 TECHNIQUE: MRI of the knee without contrast was performed using routine sequences on a high-field scanner. FINDINGS: MENISCI: Medial Meniscus: Complex tear of the posterior horn, with horizontal tear, superior surface tearing. Tear of the body, with small caliber and inner margin blunting. Lateral Meniscus: Intact LIGAMENTS: Cruciate: Intact Collateral: Intact EXTENSOR MECHANISM: Intact ARTICULAR CARTILAGE/BONE: Patellofemoral Compartment: Full-thickness chondral loss in the central and medial patella facet, with subchondral edema. There is a horizontal chondral fissure in the central patella, with slightly displaced chondromalacia. Medial Compartment: Moderate-severe arthritis, nonuniform chondral loss, including areas of full-thickness chondral loss. Subchondral cysts/edema. Lateral Compartment: No significant chondral loss. JOINT FLUID AND BURSAE: Moderate effusion. Small Spence's cyst. Subcutaneous edema. Popliteus muscle and tendon are intact. MR/MR knee RT wo con IMPRESSION: * Tear of the medial meniscal posterior horn and body. * Moderate patellofemoral arthritis. * Moderate-severe medial compartment arthritis. * Moderate effusion. Small Spence's cyst. Electronically signed by: Vaughn Pope MD 09/07/2025 03:52 PM LETICIA
--- OUTSIDE RECORDS SUMMARY | 2025-09-07 06:04 | XMS_ITS | Patient Health Record ---
Author Organization [facility] Address [address] [place] [address] Care Team Providers Care Temperature Control Inspector Name Role Phone DEE DEE JOYCE Primary Care Provider Giovanny Duke Jr Unavailable Allergies No Known Allergies Results Component Value Reference Range Notes Pathology Reviewed date:02/18/2025 08:46:18 AM Interpretation: Performing Lab:[facility], [address] [place] [phone] Notes/Report: Reason For Referral Referring Provider First Name JOYCE Referring Provider Last Name DEE DEE Referred Organization [facility] Referred Provider Giovanny Soto Jr Referred Address [address] [place] [address],[address],[place], [place],[address], Referred Provider Specialty Gastroentero logy General Notes [...] Notes Problem Long-term current use of aspirin ([id number]) Aspirin long-term use (V58.66) Active confirmed Problem Colon cancer screening (559333453) Colon cancer screening (Z12.11) Active confirmed Problem Long-term current use of antiplatelet drug (895206724217373) Long-term use of aspirin therapy (Z79.82) Active confirmed Vital Signs Temperature 98.4 degrees Fahrenheit 12/27/2024 Blood pressure diastolic 01 mm Hg 12/27/2024 Height 72.5 in 12/27/2024 Blood pressure systolic 001 mm Hg 12/27/2024 Weight 219 lbs 12/27/2024 BMI 29.29 kg/m2 12/27/2024 Encounters Encounter Location Date Provider Diagnosis [facility] [address] [place] [id number] 02/11/2025 Giovanny Soto Jr Colon cancer screening Z12.11 and Colon polyps K63.5 [facility] [address] [place] [phone] 12/27/2024 Giovanny Soto Jr Colon cancer screening Z12.11 and Long-term use of aspirin therapy Z79.82 [facility] [address] [place] [phone] 12/27/2024 Giovanny Soto Jr [facility] [address] [place] [phone] 01/24/2025 Giovanny Soto Jr [facility] [address] [place] [phone] 01/24/2025 Giovanny Soto Jr [facility] [address] [place] [phone] 02/18/2025 Giovanny Soto Jr Assessments Encounter Date [...] Insured Coverage Start Date Coverage End Date [facility] PROFESSIONAL CLAIMS [address] [place] [address] [id number] 3 ALICIA BARTH Self - patient is the insured Medical (General) History Medical History History ICD Code hypertension Hypothyroidism abdominal aortic aneurysm Colonoscopy 01/15, diverticular disease, 10-year follow-up Surgical History Surgery Date(Month/Year) wisdom teeth extraction
[2025-09-07 10:31] LABS: MANUAL DIFF FLAG NO
[2025-09-07 10:56] LABS: Hematocrit 41.5 % (42.0-52.0); Hemoglobin 14.0 g/dl (14.0-18.0); Imm Gran Abs Auto 0.03 X10*3/uL (0.00-0.03); Imm Gran Pct Auto 0.5 % (0.0-0.4); Lymphocytes Absolute Auto 2.1 X10*3/uL (1.2-4.9); Mean Corpuscular HGB Conc 33.7 g/dl (31.0-36.0); Mean Corpuscular Hemoglobin 33.6 pg (27.0-33.0); Mean Corpuscular Volume 99.5 fL (80.0-98.0); NRBC Abs Auto 0.000 X10*3/uL (0.0-0.012); NRBC Pct Auto 0.0 /100WBC (0.0-0.2); Platelet Count 264 X10*3/uL (160-400); Red Blood Count 4.17 X10*6/uL (4.60-5.80); White Blood Count 6.6 X10*3/uL (4.8-10.8)
[2025-09-07 11:04] LABS: Alanine Aminotransferase 35 U/L (0-40); Albumin Level 4.4 g/dL (3.5-5.0); Alkaline Phosphatase 59 U/L (39-117); Anion Gap 14 (12-20); Aspartate Amino Transferase 31 U/L (5-37); Blood Urea Nitrogen 28 mg/dL (9-16); Calcium 9.1 mg/dL (8.4-10.2); Carbon Dioxide 27 mmol/L (22-29); Chloride 105 mmol/L (96-108); Estimated Glomerular Filt Rate 48; Potassium 4.7 mmol/L (3.3-5.1); Sodium 141 mmol/L (135-145); Total Protein 7.0 g/dL (6.5-8.0)
[2025-09-07 11:06] LABS: INTERNATIONAL NORM RATIO 0.8 (0.9-1.1); Prothrombin Time 9.9 SEC (11.2-13.5)
[2025-09-07 11:39] LABS: Partial Thromboplastin Time 26.7 SEC (26.7-34.1)
== END 2025-09-07 06:02 | disposition home or self-care (01) ==
LOC: HO.MRI 06:01
PROVIDERS: Absent Provider Nurse Practitioner Family; PCP Nurse Practitioner Family; Visit Provider Orthopaedic Surgery
DX: S83.241A Other tear of medial meniscus, current injury, right knee, initial encounter (principal)
CPT/HCPCS: 36415; 73721; 80053; 85025; 85610; 85730

== ENCOUNTER → 2025-09-07 09:53 | Outpatient (BNV) | payer MEDICARE, SELFPAY | PROVIDERS: Absent Provider Nurse Practitioner Family; PCP Nurse Practitioner Family; Visit Provider Radiology Diagnostic Ultrasound | DX: S83.241A Other tear of medial meniscus, current injury, right knee, initial encounter (principal); M17.11 Unilateral primary osteoarthritis, right knee; M25.461 Effusion, right knee; M71.21 Synovial cyst of popliteal space [Baker], right knee | CPT/HCPCS: 73721 ==

== ENCOUNTER 2025-09-08 06:01 | Outpatient (REF) | payer MEDICARE, SELFPAY ==
--- OUTSIDE RECORDS SUMMARY | 2025-02-04 04:10 | XMS_ITS ---
Author Organization [facility] Address [address] [place] [address] Care Team Providers Care Director Of Acquisition Marketing Name Role Phone JOYCE FUNEZ Primary Care Provider Giovanny Duke Jr [phone] REASON FOR VISIT screening Encounters Encounter Location Date Provider Diagnosis [facility] [address] [facility] [place] [phone] 02/04/2025 Giovanny Taylor Jr Plan Of Treatment No Information Progress Notes * ALICIA BARTH RDOB: 4 (70 yo M)Acc No.[id number]:02/04/2025 COLON WITH MAC Patient: ALICIA PEDRAZA Provider: Romaine Tayolr MD :1955 A ge:70 Y S ex:Male Date:02/04/2025 Address:[address] [facility] Pcp:JOYCE FUNEZ Subjective: * Chief Complaints: * [...] 0 02/04/2025 Generated for Robii ng/Faedwing/eTransmitting on: 1 11/08/2024 06:05 AM EST
--- OUTSIDE RECORDS SUMMARY | 2025-02-11 04:10 | XMS_ITS ---
Author Organization [facility] Address [address] [place] [address] Care Team Providers Care Bitumen Plant Operator Name Role Phone JOYCE FUNEZ Primary Care Provider Giovanny Duke Jr REASON FOR VISIT screening Encounters Encounter Location Date Provider [place] [facility] [place] [facility] [place] [address] [place], [place] [phone] 02/11/2025 Giovanny Taylor Jr Colon cancer screening Z12.11 and Colon polyps K63.5 Assessments Encounter Date Diagnosis (ICD Code) Assessment Notes Treatment Notes Treatment Clinical Notes Section Notes 02/11/2025 Colon cancer screening (ICD-10 - Z12.11) 02/11/2025 Colon polyps (ICD-10 - K63.5) Plan Of Treatment No Information Progress Notes * ALICIA BARTH RDOB: 4 (70 yo M)Acc No.[id number]:02/11/2025 COLON WITH MAC Patient: Shelbie NINANATEALICIA HOGAN Provider: Romaine Taylor MD :1955 A ge:70 Y S ex:Male Date:02/11/2025 Address:[id number] Pcp:JOYCE FUNEZ Subjective: * Chief Complaints: * 1 . Screening. * Medical History: Objective: * Vitals: Assessment: * Assessment: 1. C olon cancer screening - Z12.11 (Primary) 2 . C olon polyps - K63.5? Plan: * Treatment: * Procedure Codes: 4 5385 LESION REMOVAL COLONOSCOPY, 45658 COLONOSCOPY AND BIOPSY, Modifiers: 59 , 4317F INTRVL 3+YRS PTS CLNSCP DOCD * * The named appointment provid er may or may not be the originator of this progress note, and it is not deemed complete until electronically signed by the appointment provider. Sign off status: Pending * Provider: Romaine Taylor MD Date: 0 02/11/2025 Generated for Dann wall/Jason/Linaitting on: 11/08/2024 06:05 AM EST
--- OUTSIDE RECORDS SUMMARY | 2025-09-08 06:05 | XMS_ITS | Patient Health Record ---
Author Organization [facility] Address [address] [place] [address] Care Team Providers Care Professor Of Archaeology Name Role Phone DEE DEE JOYCE Primary Care Provider Giovanny Duke Jr Unavailable [phone] Allergies No Known Allergies Results Component Value Reference Range Notes Pathology Reviewed date:02/18/2025 08:46:18 AM Interpretation: Performing Lab:[facility], [address] [place] [phone] Notes/Report: Reason For Referral Referring Provider First Name JOYCE Referring Provider Last Name DEE DEE Referred Organization [facility] Referred Provider Giovanny Soto Jr Referred Address [address] [place] [address],[address],[place], [place],[address], Referred Provider Specialty Gastroentero logy General Notes [...] Notes Problem Long-term current use of aspirin (960559164455466) Aspirin long-term use (V58.66) Active confirmed Problem Colon cancer screening (789739997) Colon cancer screening (Z12.11) Active confirmed Problem Long-term current use of antiplatelet drug (655626111502235) Long-term use of aspirin therapy (Z79.82) Active confirmed Vital Signs Temperature 98.4 degrees Fahrenheit 12/27/2024 Blood pressure diastolic 01 mm Hg 12/27/2024 Height 72.5 in 12/27/2024 Blood pressure systolic 001 mm Hg 12/27/2024 Weight 219 lbs 12/27/2024 BMI 29.29 kg/m2 12/27/2024 Encounters Encounter Location Date Provider Diagnosis [facility] [address] [place] [id number] 02/11/2025 Giovanny Soto Jr Colon cancer screening Z12.11 and Colon polyps K63.5 [facility] [address] [place] [phone] 12/27/2024 Giovanny Soto Jr Colon cancer screening Z12.11 and Long-term use of aspirin therapy Z79.82 [facility] [address] [place] [phone] 12/27/2024 Giovanny Soto Jr [facility] [address] [place] [phone] 01/24/2025 Giovanny Soto Jr [facility] [address] [place] [phone] 01/24/2025 Giovanny Soto Jr [facility] [address] [place] [phone] 02/18/2025 Giovanny Soto Jr Assessments Encounter Date [...] Insured Coverage Start Date Coverage End Date [facility] PROFESSIONAL CLAIMS [address] [place] [address] [id number] ALICIA BARTH Self - patient is the insured Medical (General) History Medical History History ICD Code hypertension Hypothyroidism abdominal aortic aneurysm Colonoscopy 01/15, diverticular disease, 10-year follow-up Surgical History Surgery Date(Month/Year) wisdom teeth extraction
[2025-09-08 10:52] LABS: Anion Gap 14 (12-20); Blood Urea Nitrogen 26 mg/dL (9-16); Calcium 9.4 mg/dL (8.4-10.2); Carbon Dioxide 24 mmol/L (22-29); Chloride 107 mmol/L (96-108); Estimated Glomerular Filt Rate 57; Potassium 4.8 mmol/L (3.3-5.1); Sodium 140 mmol/L (135-145)
== END 2025-09-08 06:02 | disposition home or self-care (01) ==
LOC: HO.HMGCLDS 06:01
PROVIDERS: PCP Nurse Practitioner Family; Visit Provider Nurse Practitioner Family
DX: I10 Essential (primary) hypertension (principal)
CPT/HCPCS: 36415; 80048

== ENCOUNTER 2025-09-09 05:54 | Day surgery (SDC) | payer MEDICARE, SELFPAY ==
--- OUTSIDE RECORDS SUMMARY | 2025-02-04 05:10 | XMS_ITS ---
Author Organization [facility] Address [address] [place] [address] Care Team Providers Care Potato Grader Name Role Phone JOYCE FUNEZ Primary Care Provider Giovanny Duke Jr REASON FOR VISIT screening Encounters Encounter Location Date Provider Diagnosis [facility] [place] [facility] [address] [facility] [place] [phone] 02/04/2025 Giovanny Taylor Jr Plan Of Treatment No Information Progress Notes * ALICIA BARTH RDOB: 4 (70 yo M)Acc No.[id number]:02/04/2025 COLON WITH MAC Patient: ALICIA PEDRAZA Provider: Romaine Taylor MD :1955 A ge:70 Y S ex:Male Date:02/04/2025 Address:[place] [facility] Pcp:JOYCE FUNEZ Subjective: * Chief Complaints: * [...] 0 02/04/2025 Generated for Printi ng/Faxing/eTransmitting on: 1 09:24 AM EDT
--- OUTSIDE RECORDS SUMMARY | 2025-02-11 05:10 | XMS_ITS ---
Author Organization [facility] Address [address] [place] [address] Care Team Providers Care Emergency Man Name Role Phone JOYCE FUNEZ Primary Care Provider Giovanny Duke Jr [phone] REASON FOR VISIT screening Encounters Encounter Location Date Provider Diagnosis [facility] [place] Out[place] [address] [place], [place] [phone] 02/11/2025 Giovanny Taylor Jr Colon cancer screening Z12.11 and Colon polyps K63.5 Assessments Encounter Date Diagnosis (ICD Code) Assessment Notes Treatment Notes Treatment Clinical Notes Section Notes 02/11/2025 Colon cancer screening (ICD-10 - Z12.11) 02/11/2025 Colon polyps (ICD-10 - K63.5) Plan Of Treatment No Information Progress Notes * ALICIA BARTH RDOB: 4 (70 yo M)Acc No.[id number]:02/11/2025 COLON WITH MAC Patient: Shelbie NINANATEALICIA HOGAN Provider: Romaine Taylor MD :1955 A ge:70 Y S ex:Male Date:02/11/2025 Address:[address] [place] Pcp:JOYCE FUNEZ Subjective: * Chief Complaints: * 1 . Screening. * Medical History: Objective: * Vitals: Assessment: * Assessment: 1. C olon cancer screening - Z12.11 (Primary) 2 . C olon polyps - K63.5? Plan: * Treatment: * Procedure Codes: 4 5385 LESION REMOVAL COLONOSCOPY, 25656 COLONOSCOPY AND BIOPSY, Modifiers: 59 , 7820F INTRVL 3+YRS PTS CLNSCP DOCD * * The named appointment provid er may or may not be the originator of this progress note, and it is not deemed complete until electronically signed by the appointment provider. Sign off status: Pending * Provider: Romaine Taylor MD Date: 0 02/11/2025 Generated for Dann wall/Jason/Linaitting on: 1 09:24 AM EDT
--- OUTSIDE RECORDS SUMMARY | 2025-08-19 09:24 | XMS_ITS | Patient Health Record ---
Author Organization [facility] Address [address] [place] [address] Care Team Providers Care Operating Room Assistant Name Role Phone DEE DEE JOYCE Primary Care Provider Giovanny Duke Jr Unavailable Allergies No Known Allergies Results Component Value Reference Range Notes Pathology Reviewed date:02/18/2025 08:46:18 AM Interpretation: Performing Lab:[facility], [address] [place] [phone] Notes/Report: Reason For Referral Referring Provider First Name JOYCE Referring Provider Last Name DEE DEE Referred Organization [facility] Referred Provider Giovanny Soto Jr Referred Address [address] [place] [address],[address],[place], [place],[address], Referred Provider Specialty Gastroentero logy General Notes Lauren Vanessa 2024 01:15:23 PM >REQUESTED AN O BLUE REF FOR VISIT WITH DR SOTO ON 12-27-2024 Referral Priority Routine Medications Medication SIG (Take, Route, Frequency, Duration) Notes Start Date End Date Status Aspir-81 81 MG 1 tablet Orally Once a day Active Levothyroxine Sodium Active Tamsulosin HCl 0.4 MG Oral; Duration: 90 Days Active Atorvastatin Calcium 20 MG Oral; Duration: 90 Days Active Metoprolol Tartrate 25 MG TAKE 1/2 (ONE- HALF) TABLET BY MOUTH TWICE DAILY Oral; Duration: 90 Days Active Lisinopril 5 MG 1 [...] Problem Status W/U Status Risk Notes Problem Long-term current use of aspirin (599891554262687) Aspirin long-term use (V58.66) Active confirmed Problem Colon cancer screening (386013378) Colon cancer screening (Z12.11) Active confirmed Problem Long-term current use of antiplatelet drug (753316346199545) Long-term use of aspirin therapy (Z79.82) Active confirmed Vital Signs Temperature 98.4 degrees Fahrenheit 12/27/2024 Blood pressure diastolic 01 mm Hg 12/27/2024 Height 72.5 in 12/27/2024 Blood pressure systolic 001 mm Hg 12/27/2024 Weight 219 lbs 12/27/2024 BMI 29.29 kg/m2 12/27/2024 Encounters Encounter Location Date Provider Diagnosis [facility] [place] [facility] [address] [place] [id number] 02/11/2025 Giovanny Soto Jr Colon cancer screening Z12.11 and Colon polyps K63.5 [facility] [address] [place] [phone] 12/27/2024 Giovanny Soto Jr Colon cancer screening Z12.11 and Long-term use of aspirin therapy Z79.82 [facility] [address] [place] [phone] 12/27/[address] [facility] [address] [place] [phone] 01/24/[address] [facility] [address] [place] [phone] 01/24/[address] [facility] [address] [place] [phone] 02/18/2025 Giovanny Soto Jr Assessments Encounter Date [...] Insured Coverage Start Date Coverage End Date [facility] PROFESSIONAL CLAIMS [address] [place] [address] [id number] ALICIA BARTH Self - patient is the insured Medical (General) History Medical History History ICD Code hypertension Hypothyroidism abdominal aortic aneurysm Colonoscopy 01/15, diverticular disease, 10-year follow-up Surgical History Surgery Date(Month/Year) wisdom teeth extraction
[2025-08-30 09:35] VITALS: BMI 29.8
[2025-09-09] VITALS (9 sets, daily range): BP systolic 116–154; BP diastolic 57–92; PULSE 54–76; RESP 12–18; TEMP 36.9–37.1; O2SAT 97–100
[2025-09-09] MEDS: Lactated Ringers 1,000 ML 100 ML IVCONT (06:19)
--- NOTE | 2025-09-09 07:25 | P.CONAN_ITS ---
Documented by User: Amy Norris NP 09/08/25 11:53 HPI - Anesthesia Eval Consult details Narrative: 70yo M for Left Knee Arthroscopy,with partial medial meniscectomy Medically optimized per PCP [facility] Active Problems Active Problems: All Active Problems Smoker (Acute) Pre-op evaluation (Acute) Tear of medial meniscus of right knee (Acute) Tear of medial meniscus of left knee (Acute) Osteoarthritis of right knee (Acute) Osteoarthritis of left knee (Acute) Knee osteoarthritis (Acute) Bilateral knee pain (Acute) Elevated fasting blood sugar (Acute) BPH loc w urin obs/LUTS (Acute) Aortic aneurysm (Acute) Aorta disorder (Acute) History of nicotine dependence (Acute) Hematuria (Acute) Microscopic hematuria (Acute) Anemia (Acute) Blurred vision, bilateral (Acute) Major depression in partial remission (Acute) Eye abnormality (Acute) Subcutaneous nodule of left hand (Acute) Urinary frequency (Acute) Constipation (Acute) Physical exam (Acute) Anxiety (Acute) Skin lesion (Acute) Elevated TSH (Acute) Dyslipidemia (Acute) Screening PSA (prostate specific antigen) (Acute) HTN (hypertension) (Acute) Past Medical History Medical History AAA (abdominal aortic aneurysm) Thyroid disease Arthritis of left knee HTN (hypertension) First degree AV block Vitamin B deficiency Dyslipidemia Hypothyroid Family History Family History Father AAA (abdominal aortic aneurysm) Mother Arthritis Family history of problems with anesthesia: No Surgical History Surgical History H/O wisdom tooth extraction H/O colonoscopy No pertinent past surgical history History of Problems with Anesthesia: No Social History Social History Housing: Condominium Are you a primary critical care educator to a significant other at home: No Do you presently have visiting nurse or other home services: No Patient Tobacco Use Status: Former Tobacco user Years Smoked: 15 years ago e-Cigarette/Vaping Use: Never Used Second Hand Smoke Exposure: No Use of substances other than those prescribed or required for medical reasons: Yes Substance Use Frequency: Occasionally Have you been hit, kicked, punched, or otherwise hurt by someone within the past year? If so, by whom?: No Are you DNR?: No Advance Directives: No Advance Directives Information Provided: Yes Advance Directives on File: No service: No Current occupational status: retired Cognitive needs: No Hearing needs: No Vision needs: No Meds Allergies Allergy/AdvReac Type Severity Reaction Status Date / Time No Known Allergies Allergy Verified 09/06/25 14:44 Active Medications: Current Medications Cefazolin Sodium/Dextrose (Ancef) 2 gm in 50 mls @ 100 mls/hr IV PREOP ONE Stop: 09/09/25 06:13 Cefazolin Sodium/Dextrose (Ancef) 2 gm in 50 mls @ 100 mls/hr IV PREOP ONE Stop: 09/09/25 06:06 Home Medications ?Medication ?Instructions ?Recorded ?Confirmed ?Last Taken ?Type aspirin 81 mg tablet,delayed 81 mg PO DAILY 06/26/23 1 11/06/24 09/01/25 History release (Adult Low Dose Aspirin) metoprolol tartrate 25 mg tablet 25 mg PO DAILY 09/06/25 09/09/25 History Exam Height,Weight and Vital Signs: Height 6 ft Weight 99.79 kg Pertinent Lab Results Pertinent Lab Results: Laboratory Tests 09/07/25 06:10 WBC 6.6 Hgb 14.0 Hct 41.5 L Plt Count 264 PT 9.9 L INR 0.8 L APTT 26.7 Sodium 141 Potassium 4.7 Chloride 105 Carbon Dioxide 27 Anion Gap 14 BUN 28 H Creatinine 1.44 H Calcium 9.1 D Total Bilirubin 0.6 AST 31 ALT 35 Alkaline Phosphatase 59 Total Protein 7.0 Albumin 4.4 Laboratory Tests 09/08/25 06:00 Sodium 140 Potassium 4.8 Chloride 107 Carbon Dioxide 24 Anion Gap 14 BUN 26 H Creatinine 1.24 Calcium 9.4 Narrative Narrative: EKG 09/2025 NSR @ 76 LAFB Inferior infarct Assessment and Plan Assessment Anesthesia Assessment: Chart Reviewed Final Anesthetic Review Family History of Problems with Anesthesia: No History of Problems with Anesthesia: No Documented by User: Bianca Garcia, DO 09/09/25 07:41 [facility] Past Medical History Medical History AAA (abdominal aortic aneurysm) Thyroid disease Arthritis of left knee HTN (hypertension) First degree AV block Vitamin B deficiency Dyslipidemia Hypothyroid Family History Family History Father AAA (abdominal aortic aneurysm) Mother Arthritis Family history of problems with anesthesia: No Surgical History Surgical History H/O wisdom tooth extraction H/O colonoscopy No pertinent past surgical history History of Problems with Anesthesia: No Social History [facility] Are you a primary critical care educator to a significant other at home: No Do you presently have visiting nurse or other home services: No Patient Tobacco Use Status: Former Tobacco user Years Smoked: 15 years ago e-Cigarette/Vaping Use: Never Used Second Hand Smoke Exposure: No Use of substances other than those prescribed or required for medical reasons: Yes Substance Use Frequency: Occasionally Have you been hit, kicked, punched, or otherwise hurt by someone within the past year? If so, by whom?: No Are you DNR?: No Advance Directives: No Advance Directives Information Provided: Yes Advance Directives on File: No service: No Current occupational status: retired Cognitive needs: No Hearing needs: No Vision needs: No Meds Allergies Allergy/AdvReac Type Severity Reaction Status Date / Time No Known Allergies Allergy Verified 09/06/25 14:44 Home Medications ?Medication ?Instructions ?Recorded ?Confirmed ?Last Taken ?Type aspirin 81 mg tablet,delayed 81 mg PO DAILY 06/26/2311/06/24 09/01/25 History release (Adult Low Dose Aspirin) metoprolol tartrate 25 mg tablet 25 mg PO DAILY 09/06/25 09/09/25 History Exam Exam Date and Time: 11/7/25 0725 Height,Weight and Vital Signs: Height 6 ft Weight 99.79 kg Vital Signs Temperature 98.5 F 09/09/25 05:59 Pulse Rate 76 09/09/25 05:59 Respiratory Rate 18 09/09/25 05:59 Blood Pressure 154/92 H 09/09/25 05:59 Pulse Oximetry 97 09/09/25 05:59 Oxygen Delivery Method Room Air 09/09/25 05:59 Temperature 98.5 F 09/09/25 05:59 Pulse Rate 76 09/09/25 05:59 Respiratory Rate 18 09/09/25 05:59 Blood Pressure 154/92 H 09/09/25 05:59 Pulse Oximetry 97 09/09/25 05:59 Oxygen Delivery Method Room Air 09/09/25 05:59 Airway Mallampati Class: III TM Dist: <=3cm Neck ROM: Limited Partial: Upper and Lower Heart: S1S2 Lungs: CTAB Assessment and Plan Assessment Anesthesia Assessment: Anesthesia Plan Discussed and Chart Reviewed Final Anesthetic Review Family History of Problems with Anesthesia: No History of Problems with Anesthesia: No NPO: Yes ASA Class: II Final Preanesthetic Review: No Changes in Pt Med Stat, Meds/Allgs Chart Reviewed, Consent Obtained/Reviewed and Anes Risks/Benef Reviewed Patient Risk: Low Procedure Risk: Low Anesthetic Plan Anesthetic Plan: GA and Agree w/ Assess. and Plan Disposition: Standard PACU
--- NOTE | 2025-09-09 08:27 | PM.OP ---
Brief Operative Note Date of Service: 09/09/25 Pre-op diagnosis: Left knee medial meniscus tear, left knee degenerative joint disease Post-op diagnosis: same Procedure: Left knee arthroscopic partial medial meniscectomy, left knee arthroscopic chondroplasty of the undersurface of the patella as well as the medial femoral condyle Implants: None Surgeon: Robbie Foy MD Anesthesia: GLMA Was an Pipe Fitter Supervisor Maintenance used for this Procedure?: No Estimated blood loss (mL): 10 Pathology: none sent Condition: stable Disposition: PACU
--- NOTE | 2025-09-09 08:28 | P.OP_ITS ---
Operative Note Operative Note Date of Service: 09/09/25 Narrative: After the patient was identified as Eliseo Waldron and his left knee was initialed by myself they were brought to the operating room where general anesthesia was induced by the anesthesiologist in routine fashion. The patient was given 2 g of IV Ancef preoperatively for infection prophylaxis. The patient's left lower extremity was prepped and draped in sterile fashion. A formal time-out was completed. Marcaine was injected into the planned incision sites as well as the patient's left knee joint. A #11 scalpel blade was used to make an anterolateral portal 1 cm proximal to the joint line and 1 cm lateral to the p atellar tendon. Blunt trocar technique was used to enter the suprapatellar pouch with the knee in extension. Diagnostic arthroscopy showed multiple bands of thickened plica which would be excised at the end of the procedure. There were no loose bodies or abnormalities found in either the medial or lateral gutters. The articular surface of the patella showed diffuse grades 1 and 2 degenerative changes. The trochlear groove articular surface showed diffuse grades 1 and 2 degenerative changes. The patient's knee was flexed to 45 degrees and a valgus force was placed upon it. The medial compartment was entered. An anteromedial portal was made 1 cm proximal to the joint line and 1 cm medial to the patellar tendon. Probing of the medial meniscus showed a radial tear of the posterior horn. A partial medial meniscectomy was performed using the arthroscopic shaver. Following the partial meniscectomy the remainder of the meniscus tissue was stable. There were diffuse grades 1 and 2 d egenerative changes of the medial femoral condyle as well as grade 1 degenerative changes of the medial tibial plateau. The articular surface of the medial femoral condyle was then made smooth using the arthroscopic shaver. The articular surface of the medial tibial plateau was already smooth so no chondroplasty was indicated. The patient's knee was placed into a neutral position. There was no injury to the anterior cruciate ligament. The patient's knee was then placed in the figure of 4 position and the lateral compartment was entered. There was no evidence of lateral meniscus tearing. There were minimal degenerative changes of the lateral femoral condyle and lateral tibial plateau. The patient's knee was once again brought into extension and the suprapatellar pouch was entered. The arthroscopic shaver and the ArthroCare Wand were used to excise the thickened bands of plica. The undersurface of the patella was then made smooth using the arthroscopic shaver. The articular surface of the trochlear groove was already smooth so no chondroplasty was indicated. The knee joint was irrigated and then drained. All arthroscopic instruments were removed. The 2 portals were closed with 3-0 nylon interrupted suture. The knee joint was injected with Marcaine. Dry sterile dressing and Leland bandages were placed over the patient's knee. The patient was awoken and extubated in the operating room. The patient was transferred to the recovery room in stable condition.
== END 2025-09-09 09:45 | disposition home or self-care (01) ==
PROVIDERS: PCP Nurse Practitioner Family; Visit Provider Orthopaedic Surgery
PROC: (CPT 29870; principal; 2025-09-09 07:30)
DX: M23.222 Derangement of posterior horn of medial meniscus due to old tear or injury, left knee (principal); M17.12 Unilateral primary osteoarthritis, left knee; M23.52 Chronic instability of knee, left knee; M67.52 Plica syndrome, left knee; M25.562 Pain in left knee; I71.40 Abdominal aortic aneurysm, without rupture, unspecified; I44.0 Atrioventricular block, first degree; I10 Essential (primary) hypertension; E78.5 Hyperlipidemia, unspecified; E03.9 Hypothyroidism, unspecified; E53.9 Vitamin B deficiency, unspecified; Z79.82 Long term (current) use of aspirin; Z79.899 Other long term (current) drug therapy; Z87.891 Personal history of nicotine dependence
CPT/HCPCS: 29881; J0131; J0165; J0690; J0696; J1100; J1885; J2003; J2371; J2405; J2704; J2795; J3010

== ENCOUNTER → 2025-09-09 05:54 | Outpatient (BNV) | payer MEDICARE, SELFPAY | PROVIDERS: PCP Nurse Practitioner Family; Visit Provider Orthopaedic Surgery | DX: S83.242A Other tear of medial meniscus, current injury, left knee, initial encounter (principal) | CPT/HCPCS: 29881 ==

== ENCOUNTER 2025-09-15 06:01 | Outpatient (REF) | payer MEDICARE, SELFPAY ==
--- OUTSIDE RECORDS SUMMARY | 2025-02-04 04:10 | XMS_ITS ---
Author Organization [facility] Address [address] [place] [address] Care Team Providers Care Track Surfacing Machine Operator Name Role Phone JOYCE FUNEZ Primary Care Provider Giovanny Duke Jr REASON FOR VISIT screening Encounters Encounter Location Date Provider Diagnosis [facility] [address] [facility] [place] [phone] 02/04/2025 Giovanny Taylor Jr Plan Of Treatment No Information Progress Notes * ALICIA BARTH RDOB: 4 (70 yo M)Acc No.[id number]:02/04/2025 COLON WITH MAC Patient: ALICIA PEDRAZA Provider: Romaine Taylor MD :1955 A ge:70 Y S ex:Male Date:02/04/2025 Address:[place] [address] [facility] Pcp:JOYCE FUNEZ Subjective: * Chief Complaints: * [...] MD Date: 0 02/04/2025 Generated for Robii ng/Faxing/eTransmitting on: 1 11/15/2024 06:03 AM EST
--- OUTSIDE RECORDS SUMMARY | 2025-02-11 04:10 | XMS_ITS ---
Author Organization [facility] Address [address] [place] [address] Care Team Providers Care Foil Spooler Name Role Phone JOYCE FUNEZ Primary Care Provider Giovanny Duke Jr REASON FOR VISIT screening Encounters Encounter Location Date Provider Diagnosis [facility] [place] Out[place] [address] [place], [place] [phone] 02/11/2025 Giovanny Taylor Jr Colon cancer screening Z12.11 and Colon polyps K63.5 Assessments Encounter Date Diagnosis (ICD Code) Assessment Notes Treatment Notes Treatment Clinical Notes Section Notes 02/11/2025 Colon cancer screening (ICD-10 - Z12.11) 02/11/2025 Colon polyps (ICD-10 - K63.5) Plan Of Treatment No Information Progress Notes * ALICIA BARTH RDOB: 4 (70 yo M)Acc No.[id number]:02/11/2025 COLON WITH MAC Patient: Shelbie NINANATEALICIA HOGAN Provider: Romaine Taylor MD :1955 A ge:70 Y S ex:Male Date:02/11/2025 Address:[id number] Pcp:JOYCE FUNEZ Subjective: * Chief Complaints: * 1 . Screening. * Medical History: Objective: * Vitals: Assessment: * Assessment: 1. C olon cancer screening - Z12.11 (Primary) 2 . C olon polyps - K63.5? Plan: * Treatment: * Procedure Codes: 4 5385 LESION REMOVAL COLONOSCOPY, 26107 COLONOSCOPY AND BIOPSY, Modifiers: 59 , 9296F INTRVL 3+YRS PTS CLNSCP DOCD * * The named appointment provid er may or may not be the originator of this progress note, and it is not deemed complete until electronically signed by the appointment provider. Sign off status: Pending * Provider: Romaine Taylor MD Date: 0 02/11/2025 Generated for Dann wall/Jason/Linaitting on: 1 11/15/2024 06:04 AM EST
--- OUTSIDE RECORDS SUMMARY | 2025-09-15 06:04 | XMS_ITS | Patient Health Record ---
Author Organization [facility] Address [address] [place] [address] Care Team Providers Care Tool Inspector Name Role Phone DEE DEE JOYCE Primary Care Provider Giovanny Duke Jr Unavailable Allergies No Known Allergies Results Component Value Reference Range Notes Pathology Reviewed date:02/18/2025 08:46:18 AM Interpretation: Performing Lab:[facility], [address] [place] [phone] Notes/Report: Reason For Referral Referring Provider First Name JOYCE Referring Provider Last Name DEE DEE Referred Organization [facility] Referred Provider Giovanny Soto Jr Referred Address [address] [place] [address],[address],[place], [place],[address], Referred Provider Specialty Gastroentero logy General Notes [...] Notes Problem Long-term current use of aspirin (858090159130144) Aspirin long-term use (V58.66) Active confirmed Problem Colon cancer screening (021937350) Colon cancer screening (Z12.11) Active confirmed Problem Long-term current use of antiplatelet drug (747536213846798) Long-term use of aspirin therapy (Z79.82) Active confirmed Vital Signs Temperature 98.4 degrees Fahrenheit 12/27/2024 Blood pressure diastolic 01 mm Hg 12/27/2024 Height 72.5 in 12/27/2024 Blood pressure systolic 001 mm Hg 12/27/2024 Weight 219 lbs 12/27/2024 BMI 29.29 kg/m2 12/27/2024 Encounters Encounter Location Date Provider Diagnosis [facility] [address] [place] [id number] 02/11/2025 Giovanny Soto Jr Colon cancer screening Z12.11 and Colon polyps K63.5 [facility] [address] [place] [phone] 12/27/2024 Giovanny Soto Jr Colon cancer screening Z12.11 and Long-term use of aspirin therapy Z79.82 [facility] [address] [place] [phone] 12/27/2024 Giovanny Soto Jr [facility] [address] [place] [phone] 12/27/2024 Giovanny Soto Jr [facility] [address] [place] [phone] 01/24/2025 Giovanny Soto Jr [facility] [address] [place] [phone] 01/24/2025 Giovanny Soto Jr [facility] [address] [place] [address] 02/18/2025 Giovanny Soto Jr Assessments Encounter Date [...] Insured Coverage Start Date Coverage End Date [facility] [address] [place] [address] [id number] ALICIA BARTH Self - patient is the insured Medical (General) History Medical History History ICD Code hypertension Hypothyroidism abdominal aortic aneurysm Colonoscopy 01/15, diverticular disease, 10-year follow-up Surgical History Surgery Date(Month/Year) wisdom teeth extraction
[2025-09-15 12:00] LABS: Cholesterol 145 mg/dL (<200); HDL Cholesterol 56 mg/dL (>40); Triglycerides 131 mg/dL (<150)
== END 2025-09-15 06:02 | disposition home or self-care (01) ==
LOC: HO.HMGCLDS 06:01
PROVIDERS: PCP Nurse Practitioner Family; Visit Provider Nurse Practitioner Family
DX: I10 Essential (primary) hypertension (principal); E78.5 Hyperlipidemia, unspecified
CPT/HCPCS: 36415; 80061

== ENCOUNTER 2025-09-22 08:34 | Outpatient (AMB) | payer MEDICARE, SELFPAY ==
--- OUTSIDE RECORDS SUMMARY | 2025-02-04 04:10 | XMS_ITS ---
Author Organization [facility] Address [address] [place] [address] Care Team Providers Care Windows Application Administrator Name Role Phone JOYCE FUNEZ Primary Care Provider Giovanny Duke Jr REASON FOR VISIT screening Encounters Encounter Location Date Provider Diagnosis [facility] [place] [facility] [address] [facility] [place] [phone] 02/04/2025 Giovanny Taylor Jr Plan Of Treatment No Information Progress Notes * ALICIA BARTH RDOB: 4 (70 yo M)Acc No.[id number]:02/04/2025 COLON WITH MAC Patient: Shelbie HICKSALICIA Provider: Romaine Taylor MD :1955 A ge:70 Y S ex:Male Date:02/04/2025 Address:[place] [facility] Pcp:JOYCE FUNEZ Subjective: * Chief Complaints: * S creening * The named appointment provid er may or may not be the originator of this progress note, and it is not deemed complete until electronically signed by the appointment provider. Sign off status: Pending * Provider: Romaine Taylor MD Date: 0 02/04/2025 Generated for Dann wall/Jason/eTransmitting on: 1 11/22/2024 09:44 AM EST
--- OUTSIDE RECORDS SUMMARY | 2025-02-11 04:10 | XMS_ITS ---
Author Organization [facility] Address [address] [place] [address] Care Team Providers Care Windscreen Fitter Name Role Phone JOYCE FUNEZ Primary Care Provider Giovanny Duke Jr REASON FOR VISIT screening Encounters Encounter Location Date Provider Diagnosis [facility] [place] Outpatient [address] [place], [place] [phone] 02/11/2025 Giovanny Taylor Jr Colon cancer screening Z12.11 and Colon polyps K63.5 Assessments Encounter Date Diagnosis (ICD Code) Assessment Notes Treatment Notes Treatment Clinical Notes Section Notes 02/11/2025 Colon cancer screening (ICD-10 - Z12.11) 02/11/2025 Colon polyps (ICD-10 - K63.5) Plan Of Treatment No Information Progress Notes * ALICIA BARTH RDOB: 4 (70 yo M)Acc No.[id number]:02/11/2025 COLON WITH MAC Patient: Shelbie NINANATEALICIA HOGAN Provider: Romaine Taylor MD :1955 A ge:70 Y S ex:Male Date:02/11/2025 Address:[address] [id number] Pcp:JOYCE FUNEZ Subjective: * Chief Complaints: * S creening Assessment: * Assessment: 1. C olon cancer screening - Z12.11 (Primary) 2 . C olon polyps - K63.5? Plan: * Procedure Codes: 4 5385 LESION REMOVAL [id number] COLONOSCOPY AND BIOPSY, Modifiers: 59 0529F INTRVL 3+YRS PTS CLNSCP DOCD Billing Information: * Procedure Codes: 54220 LESION REMOVAL COLONOSCOPY. 28562 COLONOSCOPY AND BIOPSY. Modifiers: 59 0529F INTRVL 3+YRS PTS CLNSCP DOCD. * The named appointment provid er may or may not be the originator of this progress note, and it is not deemed complete until electronically signed by the appointment provider. Sign off status: Pending * Provider: Romaine Taylor MD Date: 0 02/11/2025 Generated for Dann wall/Jason/Katiasmitting on: 11/22/2024 09:44 AM EST
--- NOTE | 2025-09-22 08:38 | MHC.OFFVIS ---
Intake Visit Reasons: PO-Lt Knee 09/09/25, Right knee pain and giving way Intake Note: Eliseo is a 70 year old male who presents with complaints of progressively worsening right knee pain and giving way. The patient did undergo left knee arthroscopic surgery on 09/09/2025. He reports minimal discomfort in his left knee. He describes his right knee pain as sharp in nature. Most of his pain is along the medial aspect of his knee. His right knee pain and mechanical symptoms have gotten worse over the last 6 months in spite of continued non operative treatments. He has tried physical therapy and a home exercise program which aggravated his pain. He has also tried Tylenol and anti-inflammatory medicines which gave him minimal relief. At this point his right knee pain and mechanical symptoms are interfering with his activities of daily living and his ability to sleep well through the night. The patient states that his right knee will give out several times per day. Allergies No Known Allergies Allergy (Verified 09/22/25 08:44) Medication List - Last Reviewed 09/22/25 by TIANNA Meza aspirin (Adult Low Dose Aspirin) 81 mg PO DAILY atorvastatin 20 mg PO BEDTIME levothyroxine 175 mcg PO DAILY lisinopril 40 mg PO DAILY metoprolol tartrate 25 mg PO DAILY oxycodone 5 mg PO Q6H PRN tamsulosin (Flomax) 0.4 mg PO BEDTIME PFSH Medical History AAA (abdominal aortic aneurysm) Thyroid disease Arthritis of left knee HTN (hypertension) First degree AV block Vitamin B deficiency Dyslipidemia Hypothyroid Surgical History H/O wisdom tooth extraction H/O colonoscopy No pertinent past surgical history Family History Father AAA (abdominal aortic aneurysm) Mother Arthritis [facility] Are you a primary children's zoo caretaker to a significant other at home: No Do you presently have visiting nurse or other home services: No Patient Tobacco Use Status: Former Tobacco user Years Smoked: 15 years ago e-Cigarette/Vaping Use: Never Used Second Hand Smoke Exposure: No service: No Current occupational status: retired Cognitive needs: No Hearing needs: No Vision needs: No Physical Exam Const Other: Well-nourished well-developed very friendly male awake alert and oriented x3 in no acute distress Extrem Other: Left knee examination shows that the surgical incisions are healing well, no erythema, minimal discomfort with range of motion, no instability Right knee examination shows a minimal effusion, mild crepitus with range of motion, tenderness along his medial joint line, positive Jose Luis's test, no instability Results Reviewed Results Reviewed: Standing full weight-bearing X-rays of the patient's right knee show mild diffuse joint space narrowing, no acute bony abnormalities MRI of the patient's right knee shows mild diffuse degenerative changes as well as a tear of the medial meniscus Assessment & Plan Assessment & Plan (1) Left knee pain: Code(s): M25.562 - Pain in left knee Category: Medical (2) Tear of medial meniscus of right knee: Code(s): S83.241A - Other tear of medial meniscus, current injury, right knee, initial encounter Category: Medical Plan Mr. Waldron is doing well after undergoing left knee arthroscopic surgery on 09/09/2025. His sutures were removed and Steri-Strips placed over his incisions. He does have progressively worsening right knee pain and mechanical symptoms due to a medial meniscus tear and early degenerative joint disease. I had a lengthy discussion with the patient regarding the treatment options. At this point he has failed continued non operative treatments. The risks and benefits of right knee arthroscopic surgery were discussed at length with the patient. The patient wishes to proceed with surgery. Surgery will involve right knee arthroscopic partial medial meniscectomy. He will be given a prescription for pain medicine at the time of his surgery. He will follow up as instructed. Feel free to call me at any time should questions regarding his orthopedic management arise. Coding Level of Care Code Est Pt Level 3 (41890) Complex EM visit Add On G2211 Diagnoses Left knee pain M25.562 Tear of medial meniscus of right knee S83.241A
--- OUTSIDE RECORDS SUMMARY | 2025-09-22 09:45 | XMS_ITS | Patient Health Record ---
Author Organization [facility] Address [address] [place] [address] Care Team Providers Care Distributor Operator Name Role Phone DEE DEE JOYCE Primary Care Provider Giovanny Duke Jr Unavailable Allergies No Known Allergies Results Component Value Reference Range Notes Pathology Reviewed date:02/18/2025 08:46:18 AM Interpretation: Performing Lab:[facility], [address] [place] [phone] Notes/Report: Reason For Referral Referring Provider First Name JOYCE Referring Provider Last Name DEE DEE Referred Organization [facility] Referred Provider Giovanny Soto Jr Referred Address [address] [place] [address],[address],[place], [place],[address], Referred Provider Specialty Gastroentero logy General Notes Lauren Vanessa 2024 01:15:23 PM >REQUESTED AN O BLUE REF FOR VISIT WITH DR SOTO ON 12-27-2024 Referral Priority Routine Medications Medication SIG (Take, Route, Frequency, Duration) Notes Start Date End Date Status MoviPrep 100 GM Solution Reconstituted as directed before colonoscopy Orally; Duration: 1 dose 10/07/2014 Unknown Tamsulosin HCl 0.4 MG Capsule Oral; Duration: 90 Days Acti ve Levothyroxine Sodium Unknown Lisinopril 5 MG Tablet 1 tablet Orally O nce a day Unknown Aspir-81 81 MG Tablet Delayed Release 1 tablet Orally Once a day Unknown Metoprolol Succinate ER 25 MG Tablet Extended Release 24 Hour 1 tablet Orally Once a day Unknown Atorvastatin Calcium 20 MG Tablet Oral; Duration: 90 Days Acti ve Metoprolol Tartrate 25 MG Tablet TAKE 1/2 (ONE-HALF) TABLET BY MOUTH TWICE DAILY Oral; Duration: 90 Days Active Immunizations Vaccine Route Administration Date Status Comme nts Influenza Unknown 08/24/2024 Administered Social History Social History Drugs/Alcohol: Social Info Question Answer Notes Alcohol Screen Did you have a drink containing alcohol in the past year? Yes How often did you have a drink containing alcohol in the past year? 2 to 3 times a week (3 points) How many drinks did you have on a typical day when you were drinking in the past year? 3 or 4 drinks (1 point) How often did you have 6 or more drinks on one occasion in the past year? Never (0 point) Points 4 Interpretation Positive Additional Details Category Social Info Options Details Miscellaneous: Marital status: single Occupation: computer numerical control machinist Problems Problem Type SNOMED Code ICD Code Onset Dates Problem Status W/U Status Risk Notes Problem Long-term current use of aspirin (981526524891100) Aspirin long-term use (V58.66) Active confirmed Problem Colon cancer screening (244658502) Colon cancer screening (Z12.11) Active confirmed Problem Long-term current use of antiplatelet drug (768740138227687) Long-term use of aspirin therapy (Z79.82) Active confirmed Vital Signs Temperature 98.4 degrees Fahrenheit 12/27/2024 Blood pressure diastolic 01 mm Hg 12/27/2024 Height 72.5 in 12/27/2024 Blood pressure systolic 001 mm Hg 12/27/2024 Weight 219 lbs 12/27/2024 BMI 29.29 kg/m2 12/27/2024 Encounters Encounter Location Date Provider Diagnosis [facility] [address] [place] [id number] 02/11/2025 Giovanny Soto Jr Colon cancer screening Z12.11 and Colon polyps K63.5 [facility] [address] [place] [phone] 12/27/2024 Giovanny Soto Jr Colon cancer screening Z12.11 and Long-term use of aspirin therapy Z79.82 [facility] [address] [place] [phone] 12/27/2024 Giovanny Soto Jr [facility] [address] [place] [phone] 12/27/2024 Giovanny Soto Jr [facility] [address] [place] [address] 01/24/2025 Giovanny Brandon Jr [facility] [address] [place] [address] 01/24/2025 Giovanny Brandon Jr [facility] [address] [place] [address] 02/18/2025 Giovannyfoster Soto Jr Assessments Encounter Date Diagnosis (ICD [...] Insured Coverage Start Date Coverage End Date [facility] [address] [place] [address] [id number] ALICIA BARTH Self - patient is the insured Medical (General) History Medical History History ICD Code hypertension Hypothyroidism abdominal aortic aneurysm Colonoscopy 01/15, diverticular disease, 10-year follow-up Surgical History Surgery Date(Month/Year) wisdom teeth extraction
== END 2025-09-22 08:53 | disposition home or self-care (01) ==
LOC: HO.HOS 08:35
PROVIDERS: PCP Nurse Practitioner Family; Visit Provider Orthopaedic Surgery
DX: S83.241A Other tear of medial meniscus, current injury, right knee, initial encounter (principal); M25.562 Pain in left knee
CPT/HCPCS: 99214; G2211

== ENCOUNTER → 2025-09-22 08:34 | Outpatient (BNVA) | payer MEDICARE, SELFPAY | PROVIDERS: PCP Nurse Practitioner Family; Visit Provider Orthopaedic Surgery | DX: M25.562 Pain in left knee (principal); S83.242D Other tear of medial meniscus, current injury, left knee, subsequent encounter | CPT/HCPCS: 99212 ==

== ENCOUNTER 2025-10-07 05:44 | Day surgery (SDC) | payer MEDICARE, SELFPAY ==
[2025-08-30 09:40] VITALS: BMI 29.8
--- NOTE | 2025-10-04 10:39 | HO.ANESPROP2 ---
Documented by User: Yeni Lyman NP 10/04/25 10:42 HPI - Anesthesia Eval Consult details Narrative: 70 yr old male for right Knee Arthroscopy,with partial medial meniscectomy s/p left meniscus repair 09/10/25 with GA, LMA 5 PMFSH Active Problems Active Problems: All Active Problems (Updated 09/22/25 @ 08:55 by Robbie Foy MD) Tear of medial meniscus of right knee (Acute) Left knee pain (Acute) Retinal artery plaque (Acute) Elevated serum creatinine (Acute) Smoker (Acute) Pre-op evaluation (Acute) Tear of medial meniscus of right knee (Acute) Tear of medial meniscus of left knee (Acute) Osteoarthritis of right knee (Acute) Osteoarthritis of left knee (Acute) Knee osteoarthritis (Acute) Bilateral knee pain (Acute) Elevated fasting blood sugar (Acute) BPH loc w urin obs/LUTS (Acute) Aortic aneurysm (Acute) Aorta disorder (Acute) History of nicotine dependence (Acute) Hematuria (Acute) Microscopic hematuria (Acute) Anemia (Acute) Blurred vision, bilateral (Acute) Major depression in partial remission (Acute) Eye abnormality (Acute) Subcutaneous nodule of left hand (Acute) Urinary frequency (Acute) Constipation (Acute) Physical exam (Acute) Anxiety (Acute) Skin lesion (Acute) Elevated TSH (Acute) Dyslipidemia (Acute) Screening PSA (prostate specific antigen) (Acute) HTN (hypertension) (Acute) Past Medical History Medical History AAA (abdominal aortic aneurysm) Thyroid disease Arthritis of left knee HTN (hypertension) First degree AV block Vitamin B deficiency Dyslipidemia Hypothyroid Family History Family History Father AAA (abdominal aortic aneurysm) Mother Arthritis Family history of problems with anesthesia: No Surgical History Surgical History H/O wisdom tooth extraction H/O colonoscopy No pertinent past surgical history History of Problems with Anesthesia: No Social History Social History Housing: Condominium Are you a primary behavioral health care manager to a significant other at home: No Do you presently have visiting nurse or other home services: No Patient Tobacco Use Status: Former Tobacco user Years Smoked: 15 years ago e-Cigarette/Vaping Use: Never Used Second Hand Smoke Exposure: No Use of substances other than those prescribed or required for medical reasons: Yes Substance Use Frequency: Occasionally Have you been hit, kicked, punched, or otherwise hurt by someone within the past year? If so, by whom?: No Are you DNR?: No Advance Directives: No Advance Directives Information Provided: Yes Advance Directives on File: No service: No Current occupational status: retired Cognitive needs: No Hearing needs: No Vision needs: No Meds Allergies Allergy/AdvReac Type Severity Reaction Status Date / Time No Known Allergies Allergy Verified 09/22/25 08:44 Active Medications: Current Medications Cefazolin Sodium/Dextrose (Ancef) 2 gm in 50 mls @ 100 mls/hr IV PREOP ONE Stop: 10/07/25 06:26 Home Medications ?Medication ?Instructions ?Recorded ?Confirmed ?Last Taken ?Type aspirin 81 mg tablet,delayed 81 mg PO DAILY 06/26/23 10/07/25 09/07/25 History release (Adult Low Dose Aspirin) metoprolol tartrate 25 mg tablet 25 mg PO DAILY 08/30/25 10/07/25 10/07/25 History Exam Height,Weight and Vital Signs: Height 6 ft Weight 99.79 kg Narrative Narrative: EKG 09/2025 NSR, rate [address]-T wave changes Assessment and Plan Final Anesthetic Review Family History of Problems with Anesthesia: No History of Problems with Anesthesia: No Documented by User: Angelina Avery MD 10/07/25 07:42 [facility] Past Medical History Medical History AAA (abdominal aortic aneurysm) Thyroid disease Arthritis of left knee HTN (hypertension) First degree AV block Vitamin B deficiency Dyslipidemia Hypothyroid Family History Family History Father AAA (abdominal aortic aneurysm) Mother Arthritis Surgical History Surgical History H/O wisdom tooth extraction H/O colonoscopy No pertinent past surgical history Social History [facility] Are you a primary behavioral health care manager to a significant other at home: No Do you presently have visiting nurse or other home services: No Patient Tobacco Use Status: Former Tobacco user Years Smoked: 15 years ago e-Cigarette/Vaping Use: Never Used Second Hand Smoke Exposure: No Use of substances other than those prescribed or required for medical reasons: Yes Substance Use Frequency: Occasionally Have you been hit, kicked, punched, or otherwise hurt by someone within the past year? If so, by whom?: No Are you DNR?: No Advance Directives: No Advance Directives Information Provided: Yes Advance Directives on File: No service: No Current occupational status: retired Cognitive needs: No Hearing needs: No Vision needs: No Meds Allergies Allergy/AdvReac Type Severity Reaction Status Date / Time No Known Allergies Allergy Verified 09/22/25 08:44 Home Medications ?Medication ?Instructions ?Recorded ?Confirmed ?Last Taken ?Type aspirin 81 mg tablet,delayed 81 mg PO DAILY 06/26/23 10/07/25 09/07/25 History release (Adult Low Dose Aspirin) metoprolol tartrate 25 mg tablet 25 mg PO DAILY 08/30/25 10/07/25 10/07/25 History Exam Airway Mallampati Class: III TM Dist: <=3cm Neck ROM: Limited Heart: rrr Lungs: cta Assessment and Plan Assessment Anesthesia Assessment: Anesthesia Plan Discussed and Chart Reviewed Final Anesthetic Review NPO: Yes ASA Class: III Final Preanesthetic Review: No Changes in Pt Med Stat, Meds/Allgs Chart Reviewed, Consent Obtained/Reviewed and Anes Risks/Benef Reviewed Patient Risk: Intermediate Procedure Risk: Low Anesthetic Plan Anesthetic Plan: GA and Agree w/ Assess. and Plan Disposition: Standard PACU
[2025-10-07] VITALS (11 sets, daily range): BP systolic 135–154; BP diastolic 64–87; PULSE 47–62; RESP 16–18; TEMP 36.1; O2SAT 95–100; BMI 31.2
[2025-10-07] MEDS: Lactated Ringers 1,000 ML 100 ML IVCONT (06:36)
--- NOTE | 2025-10-07 08:49 | P.BOP_ITS ---
Brief Operative Note Date of Service: 10/07/25 Pre-op diagnosis: Right knee medial meniscus tear, right knee degenerative joint disease Post-op diagnosis: same Procedure: Right knee arthroscopic partial medial meniscectomy, right knee arthroscopic chondroplasty of the medial femoral condyle and the undersurface of the patella Implants: none Surgeon: Robbie Foy MD Anesthesia: GLMA Was an Credit Review Officer used for this Procedure?: No Estimated blood loss (mL): 10 Pathology: none sent Condition: stable Disposition: PACU
--- NOTE | 2025-10-07 08:50 | W.PM.OPN ---
Operative Note Operative Note Date of Service: 10/07/25 Narrative: After the patient was identified as Eliseo Waldron and his right knee was initialed by myself they were brought to the operating room where general anesthesia was induced by the anesthesiologist in routine fashion. The patient was given 2 g of IV Ancef for infection prophylaxis. A formal time-out was completed. The patient's right lower extremity was prepped and draped in sterile fashion. Marcaine with epinephrine was injected into the planned incision sites as well as their right knee joint. A # 11 scalpel blade was used to make an anterolateral portal 1 cm proximal to the joint line and 1 cm lateral to the patellar tendon. Blunt trocar technique was used into the suprapatellar pouch with the knee in extension. Diagnostic arthroscopy showed multiple bands of thickened plica which would be excised at the end of the procedure. There were no loose bodies or abnormalities found in either the medial or lateral gutters. There were diffuse grades 1 and 2 degenerative changes of the undersurface of the patella as well as grades 1 and 2 degenerative changes of the trochlear groove. The patient's knee was flexed to 45 degrees and a valgus force was placed upon it. The medial compartment was entered. An anteromedial portal was made 1 cm proximal to the joint line and 1 cm medial to the patellar tendon. Probing of the medial meniscus showed a radial tear of the posterior horn. A partial medial meniscectomy was performed using the arthroscopic shaver. Following the partial meniscectomy the remainder of the meniscus tissue was stable. There were diffuse grades 2 and 3 degenerative changes of the medial femoral condyle as well as diffuse grades 3 and 4 degenerative changes of the medial tibial plateau. The articular surface of the medial femoral condyle was made smooth using the arthroscopic shaver. The articular surface of the medial tibial plateau was already smooth so no chondroplasty was indicated. The patient's knee was then placed into a neutral position. There was no injury to the anterior cruciate ligament. The patient's knee was then placed into the figure of 4 position and the lateral compartment was entered. There were minimal degenerative changes of the lateral femoral condyle and lateral tibial plateau. There was no evidence of lateral meniscus tearing. The patient's knee was once again brought into extension and the suprapatellar pouch was entered. The arthroscopic shaver and the ArthroCare Wand were used to excise the thickened bands of plica. The undersurface of the patella was then made smooth using the arthroscopic shaver. The articular surface of the trochlear groove was already smooth so no chondroplasty was indicated. The knee joint was irrigated and then drained. All arthroscopic instruments were removed. The 2 portals were closed with 3-0 nylon interrupted suture. The knee joint was injected with Marcaine. Dry sterile dressing and Leland bandages were placed over the patient's knee. The patient was awoken and extubated in the operating room. They were transferred to the recovery room in stable condition.
== END 2025-10-07 10:47 | disposition home or self-care (01) ==
PROVIDERS: PCP Nurse Practitioner Family; Visit Provider Orthopaedic Surgery
PROC: (CPT 29870; principal; 2025-10-07 07:30)
DX: S83.241A Other tear of medial meniscus, current injury, right knee, initial encounter (principal); M67.51 Plica syndrome, right knee; M17.11 Unilateral primary osteoarthritis, right knee; M23.51 Chronic instability of knee, right knee; M25.561 Pain in right knee; X58.XXXA Exposure to other specified factors, initial encounter; Y93.9 Activity, unspecified; Y92.9 Unspecified place or not applicable; Y99.9 Unspecified external cause status; I71.40 Abdominal aortic aneurysm, without rupture, unspecified; I44.0 Atrioventricular block, first degree; E78.5 Hyperlipidemia, unspecified; E53.9 Vitamin B deficiency, unspecified; E03.9 Hypothyroidism, unspecified; Z79.899 Other long term (current) drug therapy; Z79.82 Long term (current) use of aspirin; Z98.890 Other specified postprocedural states; Z87.891 Personal history of nicotine dependence
CPT/HCPCS: 29881; J0131; J0165; J0690; J0696; J1100; J1630; J1885; J2003; J2405; J2704; J2795; J3010

== ENCOUNTER → 2025-10-07 05:44 | Outpatient (BNV) | payer MEDICARE, SELFPAY | PROVIDERS: PCP Nurse Practitioner Family; Visit Provider Orthopaedic Surgery | DX: S83.241A Other tear of medial meniscus, current injury, right knee, initial encounter (principal) | CPT/HCPCS: 29881 ==

== ENCOUNTER 2025-10-10 09:15 | Outpatient (AMB) | payer MEDICARE, SELFPAY ==
[2025-10-10 09:29] VITALS: BP 140/80; PULSE 81; O2SAT 97; BMI 31.9
--- NOTE | 2025-10-10 09:29 | AM.OFFWIN_ITS ---
Intake Vital Signs 10/10/25 09:29 Height 6 ft Weight 235 lb BMI 31.9 BP 140/80 H Blood Pressure Location Rt brachial Position Sitting Pulse 81 Pulse Source Pulse Oximeter Pulse Oximetry (%) 97 Oxygen Delivery Method Room Air Intake Visit Reasons: EP left arm bruise Intake Note: Patient presents c/o left forearm bruise since friday night. Patient Tobacco Use Status: Former Tobacco user Allergies No Known Allergies Allergy (Verified 10/10/25 09:33) HPI HPI Comments History of Present Illness Details History of Present Illness - The patient is a 70 year old male pres enting for evaluation of a large hematoma at a recent IV site. - He reports undergoing a knee operation on Friday, and the issue arose after a nurse removed his IV in the recovery room. - He had noticed a large bruise on his l eft forearm. - He states the site is not painful or w arm. - [facility], he was advised to have the area examined. - The patient denies redness, warmth, fe gerhard, chills, or discharge. Physical Exam General: Cooperative, healthy appearing, comfortable, no acute distress and well developed Orientation: Patient oriented x3 Respiratory: Normal respiratory effort and able to speak in complete sentences. Clear to auscultation bilaterally Cardiovascular: Regular rate and rhythm. Normal S1 and S2. No m/r/g noted. Puls es are 2+ on the UE bilaterally. Skin: No rashes or lesions noted. Large bruise noted on the left forearm. No erythema, warmth or streaking noted. Neuro: Sensation is intact. Extremities: Normal to inspection. FROM of the left wrist, elbow and digits on the hand. 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 No TTP of the left forearm. Patient was informed and verbally consented to the use of an ambient scribe for clinic note documentation during this visit. [facility] Medical History AAA (abdominal aortic aneurysm) Thyroid disease Arthritis of left knee HTN (hypertension) First degree AV block Vitamin B deficiency Dyslipidemia Hypothyroid Surgical History H/O wisdom tooth extraction H/O colonoscopy No pertinent past surgical history Family History Father AAA (abdominal aortic aneurysm) Mother Arthritis Social History Housing: Condominium Are you a primary hospice care sales consultant to a significant other at home: No Do you presently have visiting nurse or other home services: No Patient Tobacco Use Status: Former Tobacco user Years Smoked: 15 years ago e-Cigarette/Vaping Use: Never Used Second Hand Smoke Exposure: No service: No Current occupational status: retired Cognitive needs: No Hearing needs: No Vision needs: No Review of Systems Const All systems reviewed & are unremarkable except as noted in HPI and below Physical Exam Vital Signs: Last Vital Signs Pulse 81 10/10/25 09:29 BP 140/80 H 10/10/25 09:29 Pulse Ox 97 10/10/25 09:29 Oxygen Delivery Method Room Air 10/10/25 09:29 BMI result Body Mass Index 31.9 Assessment & Plan Assessment & Plan (1) Arm bruise: Code(s): S40.029A - Contusion of unspecified upper arm, initial encounter Qualifiers: Encounter type: initial encounter Laterality: left Qualified Code(s): S40.022A - Contusion of left upper arm, initial encounter Plan Most likely Contusion Of Arm after IV placement and removal plan - The patient presents with a large hematoma at a recent IV site - Examination reveals no signs of infection, such as warmth, significant pain, or induration. - Reassurance was provided that the appearance of the hematoma is expected to worsen and change colors before it resolves. - Advised the patient to apply ice or heat to the area. - The patient was instructed to monitor for signs of complications, including increasing redness, warmth, or if the area becomes raised, and to follow up if these occur. Coding Level of Care Code Est Pt Level 3 (38976) Diagnoses Contusion of left upper extremity, initial encounter S40.022A Encounter type: initial encounter Laterality: left
== END 2025-10-10 10:07 | disposition home or self-care (01) ==
PROVIDERS: PCP Nurse Practitioner Family; Visit Provider Physician Assistant Medical
DX: S40.022A Contusion of left upper arm, initial encounter (principal)

== ENCOUNTER → 2025-10-10 09:15 | Outpatient (BNVA) | payer MEDICARE, SELFPAY | PROVIDERS: PCP Nurse Practitioner Family; Visit Provider Physician Assistant Medical | DX: S40.022A Contusion of left upper arm, initial encounter (principal); Y84.8 Other medical procedures as the cause of abnormal reaction of the patient, or of later complication, without mention of misadventure at the time of the procedure; Y92.9 Unspecified place or not applicable | CPT/HCPCS: 99212 ==

== ENCOUNTER 2025-10-20 08:33 | Outpatient (AMB) | payer MEDICARE, SELFPAY ==
--- OUTSIDE RECORDS SUMMARY | 2025-02-04 04:10 | XMS_ITS ---
Author Organization [facility] Address [address] [place] [address] Care Team Providers Care Block Splitter Operator Name Role Phone JOYCE FUNEZ Primary Care Provider Giovanny Duke Jr [phone] REASON FOR VISIT screening Encounters Encounter Location Date Provider Diagnosis [facility] [place] [address] [facility] [place] [phone] 02/04/2025 Giovanny Taylor Jr Plan Of Treatment No Information Progress Notes * ALICIA BARTH RDOB: 4 (70 yo M)Acc No.[id number]:02/04/2025 COLON WITH MAC Patient: KATHERINE PEDRAZAJuan Luis Moreno Provider: Romaine Taylor MD :1955 A ge:70 Y S ex:Male Date:02/04/2025 Address:[place] [facility] Pcp:JOYCE FUNEZ Subjective: * Chief Complaints: * S creening * The named appointment provid er may or may not be the originator of this progress note, and it is not deemed complete until electronically signed by the appointment provider. Sign off status: Pending * Provider: Romaine Taylor MD Date: 0 02/04/2025 Generated for Dann wall/Jason/eTransmitting on: 1 12/21/2024 08:59 AM EST
--- OUTSIDE RECORDS SUMMARY | 2025-02-11 04:10 | XMS_ITS ---
Author Organization [facility] Address [address] [place] [address] Care Team Providers Care Basketballs And Footballs Reverser Name Role Phone JOYCE FUNEZ Primary Care Provider Giovanny Duke Jr REASON FOR VISIT screening Encounters Encounter Location Date Provider Diagnosis [facility] [place] Out[place] [address] [place], [place] [phone] 02/11/2025 Giovanny Taylor Jr Colon cancer screening Z12.11 and Colon polyps K63.5 Assessments Encounter Date Diagnosis (ICD Code) Assessment Notes Treatment Notes Treatment Clinical Notes Section Notes 02/11/2025 Colon cancer screening (ICD-10 - Z12.11) 02/11/2025 Colon polyps (ICD-10 - K63.5) Plan Of Treatment No Information Progress Notes * ALICIA BARTH RDOB: 4 (70 yo M)Acc No.[id number]:02/11/2025 COLON WITH MAC Patient: Shelbie NINANATEALICIA HOGAN Provider: Romaine Taylor MD :1955 A ge:70 Y S ex:Male Date:02/11/2025 Address:[id number] Pcp:JOYCE FUNEZ Subjective: * Chief Complaints: * S creening Assessment: * Assessment: 1. C olon cancer screening - Z12.11 (Primary) 2 . C olon polyps - K63.5? Plan: * Procedure Codes: 4 5385 LESION REMOVAL [id number] COLONOSCOPY AND BIOPSY, Modifiers: 59 0529F INTRVL 3+YRS PTS CLNSCP DOCD Billing Information: * Procedure Codes: 73008 LESION REMOVAL COLONOSCOPY. 43466 COLONOSCOPY AND BIOPSY. Modifiers: 59 0529F INTRVL 3+YRS PTS CLNSCP DOCD. * The named appointment provid er may or may not be the originator of this progress note, and it is not deemed complete until electronically signed by the appointment provider. Sign off status: Pending * Provider: Romaine Taylor MD Date: 0 02/11/2025 Generated for Dann wall/Jason/Katiasmitting on: 1 12/21/2024 09:00 AM EST
--- NOTE | 2025-10-20 08:42 | A.OFFVIS_ITS ---
Intake Visit Reasons: PO-Rt Knee 10/07/25 Intake Note: Eliseo is a 70 year old male who presents with complaints of mild discomfort in his right knee after undergoing right knee arthroscopic surgery on 10/07/2025. He continues with his home stretching program. He denies any fevers or chills. Allergies No Known Allergies Allergy (Verified 10/20/25 08:46) Medication List - Last Reconciled 10/20/25 by Robbie Foy MD atorvastatin 20 mg PO BEDTIME levothyroxine 175 mcg PO DAILY lisinopril 40 mg PO DAILY metoprolol tartrate 25 mg PO DAILY tamsulosin (Flomax) 0.4 mg PO BEDTIME PFSH Medical History (Updated 10/20/25 @ 09:13 by Robbie Foy MD) AAA (abdominal aortic aneurysm) Thyroid disease Arthritis of left knee HTN (hypertension) First degree AV block Vitamin B deficiency Dyslipidemia Hypothyroid Surgical History (Updated 10/20/25 @ 08:47 by TIANNA Peterson) S/P right knee arthroscopy H/O wisdom tooth extraction H/O colonoscopy No pertinent past surgical history Family History Father AAA (abdominal aortic aneurysm) Mother Arthritis [facility] Are you a primary healthcare management consultant to a significant other at home: No Do you presently have visiting nurse or other home services: No Patient Tobacco Use Status: Former Tobacco user Years Smoked: 15 years ago e-Cigarette/Vaping Use: Never Used Second Hand Smoke Exposure: No service: No Current occupational status: retired Cognitive needs: No Hearing needs: No Vision needs: No Physical Exam Extrem Other: Right knee examination shows that the surgical incisions are healing well, no erythema, minimal discomfort with range of motion, no instability Assessment & Plan Assessment & Plan (1) Right knee pain: Code(s): M25.561 - Pain in right knee Category: Medical Plan Eliseo is doing well after undergoing right knee arthroscopic surgery on 10/07/2025. His sutures were removed and Steri-Strips placed over his incisions. He will gradually progress to activities as tolerated. He will contact me prior to his follow-up appointment in 3 months should any questions or concerns arise. Feel free to call me at any time should questions regarding his orthopedic management arise. Coding Level of Care Code Global (59983) Diagnoses Right knee pain M25.561
--- OUTSIDE RECORDS SUMMARY | 2025-10-20 09:00 | XMS_ITS | Patient Health Record ---
Author Organization [facility] Address [address] [place] [address] Care Team Providers Care Weaver Dobby Loom Name Role Phone DEE DEE JOYCE Primary Care Provider Giovanny Duke Jr Unavailable [phone] Allergies No Known Allergies Results Component Value Reference Range Notes Pathology Reviewed date:02/18/2025 08:46:18 AM Interpretation: Performing Lab:[facility], [address] [place] [phone] Notes/Report: Reason For Referral Referring Provider First Name JOYCE Referring Provider Last Name DEE DEE Referred Organization [facility] Referred Provider Giovanny Soto Jr Referred Address [address] [place] [address],[address],[place], [place],[address], Referred Provider Specialty Gastroentero logy General Notes [...] Options Details Miscellaneous: Marital status: single Occupation: [employer] machinist Problems Problem Type SNOMED Code ICD Code Onset Dates Problem Status W/U Status Risk Notes Problem Long-term current use of aspirin ([id number]) Aspirin long-term use (V58.66) Active confirmed Problem Colon cancer screening (193271327) Colon cancer screening (Z12.11) Active confirmed Problem Long-term current use of antiplatelet drug (193974345751791) Long-term use of aspirin therapy (Z79.82) Active confirmed Vital Signs Temperature 98.4 degrees Fahrenheit 12/27/2024 Blood pressure diastolic 01 mm Hg 12/27/2024 Height 72.5 in 12/27/2024 Blood pressure systolic 001 mm Hg 12/27/2024 Weight 219 lbs 12/27/2024 BMI 29.29 kg/m2 12/27/2024 Encounters Encounter Location Date Provider Diagnosis [facility] Outpatient [address] [place] [id number] 02/11/2025 Giovanny Soto Jr Colon cancer screening Z12.11 and Colon polyps K63.5 [facility] [address] [place] [phone] 12/27/2024 Giovanny Soto Jr Colon cancer screening Z12.11 and Long-term use of aspirin therapy Z79.82 [facility] [address] [place] [phone] 12/27/2024 Giovanny Soto Jr [facility] [address] [place] [phone] 12/27/2024 Giovanny Soto Jr [facility] [address] [place] [address] 01/24/2025 Giovanny Brandon Jr [facility] [address] [place] [address] 01/24/2025 Giovanny Brandon Jr [facility] [address] [place] [address] 02/18/2025 Giovannyfoster Soto Jr Assessments Encounter Date [...] Insured Coverage Start Date Coverage End Date [facility] [employer] [facility] [address] [place] [address] [id number] ALICIA BARTH Self - patient is the insured Medical (General) History Medical History History ICD Code hypertension Hypothyroidism abdominal aortic aneurysm Colonoscopy 01/15, diverticular disease, 10-year follow-up Surgical History Surgery Date(Month/Year) wisdom teeth extraction
== END 2025-10-20 09:11 | disposition home or self-care (01) ==
LOC: HO.HOS 08:34
PROVIDERS: PCP Nurse Practitioner Family; Visit Provider Orthopaedic Surgery
DX: M25.561 Pain in right knee (principal)
CPT/HCPCS: 99024

== ENCOUNTER 2025-10-20 13:42 | Outpatient (REF) | payer MEDICARE, SELFPAY ==
--- NOTE | ~2025-10-20 | US_ITS ---
EXAMINATION: BILATERAL CAROTID ULTRASOUND WITH DOPPLER HISTORY: I70.8 - Atherosclerosis of other arteries COMPARISON: There are no prior studies available for comparison. TECHNIQUE: Real time and Color and Spectral doppler ultrasonography of the carotid and vertebral arteries was performed in multiple planes. FINDINGS: A small amount of plaque is seen bilaterally. VERTEBRAL FLOW DIRECTION: Antegrade bilaterally. PEAK SYSTOLIC VELOCITIES (in cm/sec): RIGHT: CCA: Prox: 96 Dist: 61 ICA: Prox: 57 Mid: 59 Dist: 78 ICA/CCA Ratio: 0.59 ECA: 114 Peak ICA end diastolic velocity (EDV): 32 LEFT: CCA: Prox: 73 Dist: 60 ICA: Prox: 66 Mid: 49 Dist: 69 ICA/CCA Ratio: 0.90 ECA: 86 Peak ICA end diastolic velocity (EDV): 23 US/US carotid duplex BI IMPRESSION: Findings consistent with 0-49% stenosis of the bilateral internal carotid arteries. Electronically signed by: Lake Rosenbaum MD 10/20/2025 02:15 PM [facility]
== END 2025-10-20 13:43 ==
LOC: HO.US 13:42
PROVIDERS: PCP Nurse Practitioner Family; Visit Provider Nurse Practitioner Family
DX: I65.23 Occlusion and stenosis of bilateral carotid arteries (principal); I70.8 Atherosclerosis of other arteries; H35.09 Other intraretinal microvascular abnormalities
CPT/HCPCS: 93306; 93880; 99212; Q9957

== ENCOUNTER → 2025-10-20 13:45 | Outpatient (BNV) | payer MEDICARE, SELFPAY | PROVIDERS: PCP Nurse Practitioner Family; Visit Provider Radiology Diagnostic Radiology | DX: I70.8 Atherosclerosis of other arteries (principal) | CPT/HCPCS: 93880 ==

== ENCOUNTER → 2025-10-20 14:13 | Outpatient (BNV) | payer MEDICARE, SELFPAY | PROVIDERS: PCP Nurse Practitioner Family; Visit Provider Internal Medicine Cardiovascular Disease | DX: I77.810 Thoracic aortic ectasia (principal) | CPT/HCPCS: 93306 ==